=== PATIENT | female | born 1985 | race American Indian/Alaskan Native ===

== ENCOUNTER 2019-03-11 22:52 | Emergency (ER) | payer MEDICARE ==
[2019-03-11 23:48] LABS: BUN/Creatinine Ratio 26; Blood Urea Nitrogen 13 mg/dL (7-17); Calcium 8.9 mg/dL (8.4-10.2); Hemolysis Index 2
[2019-03-11] MEDS ORDERED: ONDANSETRON 4 MG/2 ML INJ IV ONE (23:54)
[2019-03-11 23:55] LABS: Alanine Aminotransferase 18 units/L (7-56); Albumin 4.4 g/dL (3.9-5)
[2019-03-11] MEDS ORDERED: SODIUM CHLORIDE 0.9% 1000 ML 1,000 ML IV ONE (23:55)
[2019-03-11 23:56] LABS: INR 0.97 (0.87-1.13); Partial Thromboplastin Time 28.7 Sec. (24.2-36.6)
[2019-03-11 23:59] LABS: Bilirubin,Direct < 0.2 mg/dL (0-0.2)
--- NOTE | 2019-03-11 23:59 | Emergency Department Report ---
ED Abdominal Pain HPI - General Chief Complaint: GI Bleed Stated Complaint: BLOOD IN STOOL,ABD PAIN Source: patient, EMS Mode of arrival: Ambulatory Limitations: No Limitations - History of Present Illness Initial Comments: 33-year-old -Citizen Of [place] female patient with history of hypertension, diabetes, asthma, seizures, bowel obstruction, appendectomy, and cholecystectomy presents with complaints of mid to lower abdominal pain and black tarry stools/dark bloody stools for the past 6 days. He denies any fever or chills or history of GI bleed/PUD/GERD. She states the pain is a 9 out of 10 in severity. She admits to nausea and vomiting with coffee ground emesis. MD Complaint: abdominal pain -: Sudden Radiation: LLQ, RLQ, suprapubic Migration to: no migration Severity scale (0 -10): 9 Quality: stabbing Consistency: constant Improves With: nothing Worsens With: nothing Associated Symptoms: nausea, vomiting, hematemesis, hematochezia, melena. denies: diarrhea, constipation, dysuria - Related Data Previous Rx's Medication Instructions Recorded Last Taken Type Pramoxine 1% [Proctofoam] 1 applicatio TP 5XD PRN 7 Days 09/24/13 Unknown Rx foam Acetaminophen/Codeine [Tylenol 1 tab PO Q6H PRN #10 tab 03/12/19 Unknown Rx /Codeine # 3 tab] Ondansetron [Zofran Odt] 4 mg PO Q8HR PRN #20 tab.rapdis 03/12/19 Unknown Rx Allergies Allergy/AdvReac Type Severity Reaction Status Date / Time acetaminophen [From Percocet] Allergy Swelling Verified 09/24/13 00:57 aspirin Allergy Unknown Verified 09/24/13 00:58 hydrocodone bitartrate Allergy Swelling Verified 09/24/13 00:57 [From Lortab] ibuprofen [From Motrin] Allergy Swelling Verified 09/24/13 00:57 oxycodone HCl [From Percocet] Allergy Swelling Verified 09/24/13 00:57 Penicillins Allergy Swelling Verified 09/24/13 00:57 sulfamethoxazole Allergy Swelling Verified 09/24/13 00:57 [From Bactrim] tramadol Allergy Unknown Verified 09/24/13 00:57 trazodone Allergy Vomiting Verified 09/24/13 00:57 trimethoprim [From Bactrim] Allergy Swelling Verified 09/24/13 00:57 ED Review of Systems ROS: Stated complaint: BLOOD IN STOOL,ABD PAIN Other details as noted in HPI ED Past Medical Hx - Past Medical History Previous Medical History?: Yes Hx Hypertension: Yes Hx Diabetes: Yes Hx Seizures: Yes Hx Asthma: Yes Additional medical history: hypothyroid,anemia. elevated liver enzymes - Surgical History Past Surgical History?: Yes Hx Cholecystectomy: Yes Hx Appendectomy: Yes Additional Surgical History: 3 c-sections, 1 breast biopsy, 1 liver biposy - Social History Smoking Status: Current Every Day Smoker Substance Use Type: None - Medications Home Medications: Home Medications Medication Instructions Recorded Confirmed Last Taken Type Pramoxine 1% [Proctofoam] 1 applicatio TP 5XD PRN 7 Days 09/24/13 Unknown Rx foam Acetaminophen/Codeine [Tylenol 1 tab PO Q6H PRN #10 tab 03/12/19 Unknown Rx /Codeine # 3 tab] Ondansetron [Zofran Odt] 4 mg PO Q8HR PRN #20 tab.rapdis 03/12/19 Unknown Rx ED Physical Exam - General Limitations: No Limitations General appearance: alert, in no apparent distress - Head Head exam: Present: atraumatic, normocephalic - Eye Eye exam: Present: normal appearance. Absent: scleral icterus - Neck Neck exam: Present: normal inspection - Respiratory Respiratory exam: Present: normal lung sounds bilaterally. Absent: respiratory distress - Cardiovascular Cardiovascular Exam: Present: regular rate, normal rhythm, normal heart sounds - GI/Abdominal GI/Abdominal exam: Present: soft, tenderness, normal bowel sounds. Absent: distended, guarding, rebound, rigid - Rectal Rectal exam: Present: heme (+) stool, bloody stool. Absent: black stool, fecal impaction, mass, tenderness - Extremities Exam Extremities exam: Absent: pedal edema - Back Exam Back exam: Absent: CVA tenderness (R), CVA tenderness (L) - Neurological Exam Neurological exam: Present: alert, oriented X3 - Psychiatric Psychiatric exam: Present: normal affect, normal mood - Skin Skin exam: Present: warm, dry, intact, normal color. Absent: rash ED Course Vital Signs 03/11/19 03/12/19 03/12/19 23:01 01:26 02:58 Temperature 98.4 F Pulse Rate 98 H Respiratory 20 16 18 Rate Blood Pressure 110/62 [Right] O2 Sat by Pulse 99 100 Oximetry ED Medical Decision Making - Lab Data Result diagrams: 03/11/19 23:18 03/11/19 23:18 Lab Results 03/11/19 03/11/19 03/11/19 Range/Units 23:18 23:18 23:34 WBC 6.9 (4.5-11.0) K/mm3 RBC 3.63 L (3.65-5.03) M/mm3 Hgb 10.5 (10.1-14.3) gm/dl Hct 32.0 (30.3-42.9) % MCV 88 (79-97) fl MCH 29 (28-32) pg MCHC 33 (30-34) % RDW 17.7 H (13.2-15.2) % Plt Count 272 (140-440) K/mm3 Lymph % (Auto) 18.4 (13.4-35.0) % [place] % (Auto) 8.8 H (0.0-7.3) % Eos % (Auto) 3.1 (0.0-4.3) % Baso % (Auto) 0.6 (0.0-1.8) % Lymph # 1.3 (1.2-5.4) K/mm3 [place] # 0.6 (0.0-0.8) K/mm3 Eos # 0.2 (0.0-0.4) K/mm3 Baso # 0.0 (0.0-0.1) K/mm3 Add Manual Diff Complete Seg Neutrophils % 69.1 (40.0-70.0) % Seg Neutrophils # 4.7 (1.8-7.7) K/mm3 PT 12.8 (12.2-14.9) Sec. INR 0.97 (0.87-1.13) APTT 28.7 (24.2-36.6) Sec. Sodium 141 (137-145) mmol/L Potassium 4.4 (3.6-5.0) mmol/L Chloride 104.8 (98-107) mmol/L Carbon Dioxide 26 (22-30) mmol/L Anion Gap 15 mmol/L BUN 13 (7-17) mg/dL Creatinine 0.5 L (0.7-1.2) mg/dL Estimated GFR > 60 ml/min BUN/Creatinine Ratio 26 % Glucose 88 (65-100) mg/dL Calcium 8.9 (8.4-10.2) mg/dL Total Bilirubin (0.1-1.2) mg/dL Direct Bilirubin (0-0.2) mg/dL Indirect Bilirubin mg/dL AST (5-40) units/L ALT (7-56) units/L Alkaline Phosphatase (35-129) units/L Total Protein (6.3-8.2) g/dL Albumin (3.9-5) g/dL Albumin/Globulin Ratio % Urine Color (Yellow) Urine Turbidity (Clear) Urine pH (5.0-7.0) Ur Specific [place] (1.003-1.030) Urine Protein (Negative) mg/dL Urine Glucose (UA) (Negative) mg/dL Urine Ketones (Negative) mg/dL Urine Blood (Negative) Urine Nitrite (Negative) Urine Bilirubin (Negative) Urine Urobilinogen (<2.0) mg/dL Ur Leukocyte Esterase (Negative) Urine WBC (Auto) (0.0-6.0) /HPF Urine RBC (Auto) (0.0-6.0) /HPF U Epithel Cells (Auto) (0-13.0) /HPF 03/11/19 03/12/19 Range/Units 23:34 01:45 WBC (4.5-11.0) K/mm3 RBC (3.65-5.03) M/mm3 Hgb (10.1-14.3) gm/dl Hct (30.3-42.9) % MCV (79-97) fl MCH (28-32) pg MCHC (30-34) % RDW (13.2-15.2) % Plt Count (140-440) K/mm3 Lymph % (Auto) (13.4-35.0) % [place] % (Auto) (0.0-7.3) % Eos % (Auto) (0.0-4.3) % Baso % (Auto) (0.0-1.8) % Lymph # (1.2-5.4) K/mm3 [place] # (0.0-0.8) K/mm3 Eos # (0.0-0.4) K/mm3 Baso # (0.0-0.1) K/mm3 Add Manual Diff Seg Neutrophils % (40.0-70.0) % Seg Neutrophils # (1.8-7.7) K/mm3 PT (12.2-14.9) Sec. INR (0.87-1.13) APTT (24.2-36.6) Sec. Sodium (137-145) mmol/L Potassium (3.6-5.0) mmol/L Chloride (98-107) mmol/L Carbon Dioxide (22-30) mmol/L Anion Gap mmol/L BUN (7-17) mg/dL Creatinine (0.7-1.2) mg/dL Estimated GFR ml/min BUN/Creatinine Ratio % Glucose (65-100) mg/dL Calcium (8.4-10.2) mg/dL Total Bilirubin < 0.20 (0.1-1.2) mg/dL Direct Bilirubin < 0.2 (0-0.2) mg/dL Indirect Bilirubin 0.0 mg/dL AST 13 (5-40) units/L ALT 18 (7-56) units/L Alkaline Phosphatase 91 (35-129) units/L Total Protein 7.4 (6.3-8.2) g/dL Albumin 4.4 (3.9-5) g/dL Albumin/Globulin Ratio 1.5 % Urine Color Straw (Yellow) Urine Turbidity Clear (Clear) Urine pH 7.0 (5.0-7.0) Ur Specific [place] 1.039 H (1.003-1.030) Urine Protein <15 mg/dl (Negative) mg/dL Urine Glucose (UA) Neg (Negative) mg/dL Urine Ketones Neg (Negative) mg/dL Urine Blood Neg (Negative) Urine Nitrite Neg (Negative) Urine Bilirubin Neg (Negative) Urine Urobilinogen < 2.0 (<2.0) mg/dL Ur Leukocyte Esterase Neg (Negative) Urine WBC (Auto) < 1.0 (0.0-6.0) /HPF Urine RBC (Auto) 1.0 (0.0-6.0) /HPF U Epithel Cells (Auto) < 1.0 (0-13.0) /HPF - Radiology Data Radiology results: report reviewed CT ABDOMEN AND PELVIS WITH CONTRAST INDICATION: Nausea, vomiting, abdominal pain, melanoma, coffee-ground emesis CONTRAST: 100 cc Omnipaque 300 IV COMPARISON: None available. All CT scans at this location are performed using CT dose reduction for ALARA by means of automated exposure control. NOTE: Resolution is decreased and artifact is introduced by the patient's size. FINDINGS: Lung bases are clear of infiltrates. No pneumoperitoneum is seen. Gallbladder has been removed. Liver shows mild fatty infiltration and is mildly prominent in volume. Spleen appears w ithin normal limits. Pancreas shows no abnormalities. No lymphadenopathy is seen. No free fluid is noted. No inflammatory changes are seen. Stomach and duodenum show no obvious abnormalities. No evidence of bowel obstruction is seen. Colon shows mild increase in stool burden without dilatation. Appendix appears to been removed. 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 In the upper pelvis to the right of midline several matted small bowel loops are seen which may show mild wall thickening. Terminal ileum appears within normal limits. Diffuse mild midline abdominal wall laxity is seen and a small fatty umbilical hernia is noted. Several small midline abdominal wall hernias are noted. No acute change is seen at these hernia sites and no bowel is noted. Small probable cysts are seen in the kidneys. In the medial aspect of the left mid kidney a 2 cm cystic rounded structure is seen with a moderate focal calcification noted dependently. Though this could be a complex cortical cyst, this may be a calyceal diverticulum or even a dilated calyx. I do not see other collecting system dilatation however. No ureteral abnormalities are seen. Urinary bladder shows no abnormalities. IMPRESSION: 1. Question of mild wall thickening in small bowel loops in the upper pelvis. Possibly this could relate to a mild enteritis. 2. Evidence of constipation 3. Cystic structure in the left kidney with a moderate dependent calcification as discussed above. I doubt this is an acute finding and favor this to be a calyceal diverticulum with a calculus. Follow-up could be obtained though I doubt this is significant. - Medical Decision Making 33-year-old female patient here with abdominal pain and black tarry stools/dark red blood in stools for the past 6 days. Vitals are WNL. Hemoglobin is 10.5, previously 10.9 and 2014. WBCs are normal. Chemistry is normal. Fecal occult, positive, however bright red blood noted on rectal exam and no black tarry stools seen. CT shows possible mild enteritis. Discussed patient's findings with Dr. Dickey-states given pt's vitals, Hgb, CT and lab findings, patient is stable for d/c home and f/u with her GI specialist. Discussed strict return precautions in detail with pt who states understanding Critical care attestation.: If time is entered above; I have spent that time in minutes in the direct care of this critically ill patient, excluding procedure time. ED Disposition Clinical Impression: Hematochezia Abdominal pain Qualifiers: Abdominal location: generalized Qualified Code(s): R10.84 - Generalized abdominal pain Disposition: TO HOME OR SELFCARE Is pt being admited?: No Condition: Stable Instructions: Rectal Bleeding (ED) Additional Instructions: Please follow-up with your aeronautical test engineer in the morning for further evaluation and treatment Prescriptions: Acetaminophen/Codeine [Tylenol /Codeine # 3 tab] 1 tab PO Q6H PRN #10 tab PRN Reason: Pain , Severe (7-10) Ondansetron [Zofran Odt] 4 mg PO Q8HR PRN #20 tab.rapdis PRN Reason: Nausea Referrals: MARISA BARAJAS MD [Primary Care Provider] - 3-5 Days Forms: Accompanied Note
[2019-03-12 00:01] LABS: Hemoglobin 10.5 gm/dl (10.1-14.3); Red Blood Count 3.63 M/mm3 (3.65-5.03)
[2019-03-12 00:02] LABS: Basophils % (Auto) 0.6 % (0.0-1.8); Eosinophils # (Auto) 0.2 K/mm3 (0.0-0.4); Eosinophils % (Auto) 3.1 % (0.0-4.3); Lymphocytes # (Auto) 1.3 K/mm3 (1.2-5.4); Lymphocytes % (Auto) 18.4 % (13.4-35.0); Mean Corpuscular HGB Conc 33 % (30-34); Mean Corpuscular Volume 88 fl (79-97); Mean Platelet Volume 7.7 fl (6-12); Monocytes # (Auto) 0.6 K/mm3 (0.0-0.8); Monocytes % (Auto) 8.8 % (0.0-7.3); Platelet Count 272 K/mm3 (140-440); Red Cell Distribution Width 17.7 % (13.2-15.2)
[2019-03-12] MEDS ORDERED: MORPHINE 4 MG/1 ML INJ IV ONE (01:19)
--- NOTE | 2019-03-12 01:53 | Cat Scan Report ---
CT ABDOMEN AND PELVIS WITH CONTRAST INDICATION: Nausea, vomiting, abdominal pain, melanoma, coffee-ground emesis CONTRAST: 100 cc Omnipaque 300 IV COMPARISON: None available. All CT scans at this location are performed using CT dose reduction for ALARA by means of automated e xposure control. NOTE: Resolution is decreased and artifact is introduced by the patient's size. FINDINGS: Lung bases are clear of infiltrates. No pneumoperitoneum is seen. Gallbladder has been salas sriram. Liver shows mild fatty infiltration and is mildly prominent in volume. Spleen appears within nor mal limits. Pancreas shows no abnormalities. No lymphadenopathy is seen. No free fluid is noted. No i nflammatory changes are seen. Stomach and duodenum show no obvious abnormalities. No evidence of bowel obstruction is seen. Colon s hows mild increase in stool burden without dilatation. Appendix appears to been removed. Congenital m alrotation of bowel is seen with the colon almost entirely in the left abdomen and cecum well to the left of midline. In the upper pelvis to the right of midline several matted small bowel loops are see n which may show mild wall thickening. Terminal ileum appears within normal limits. Diffuse mild midline abdominal wall laxity is seen and a small fatty umbilical hernia is noted. Sever al small midline abdominal wall hernias are noted. No acute change is seen at these hernia sites and no bowel is noted. Small probable cysts are seen in the kidneys. In the medial aspect of the left mid kidney a 2 cm cyst ic rounded structure is seen with a moderate focal calcification noted dependently. Though this could be a complex cortical cyst, this may be a calyceal diverticulum or even a dilated calyx. I do not se e other collecting system dilatation however. No ureteral abnormalities are seen. Urinary bladder steven ws no abnormalities. IMPRESSION: 1. Question of mild wall thickening in small bowel loops in the upper pelvis. Possibly this could rel ate to a mild enteritis. 2. Evidence of constipation 3. Cystic structure in the left kidney with a moderate dependent calcification as discussed above. I doubt this is an acute finding and favor this to be a calyceal diverticulum with a calculus. Follow-u p could be obtained though I doubt this is significant. Signer Name: Alonso Brito MD Signed: 03/12/2019 1:48 AM Workstation Name: [id number]
[2019-03-12 01:59] LABS: Bilirubin,Urine NEG (Negative); Blood,Urine NEG (Negative); Color,Urine Straw (Yellow); Protein,Urine <15 mg/dL mg/dL (Negative); Urobilinogen,Urine < 2.0 mg/dL (<2.0); WBC,Urine < 1.0 /HPF (0.0-6.0)
[2019-03-12] MEDS ORDERED: oxyCODONE /ACETAMINOPHEN 5-325MG TAB PO ONE (02:49)
[2019-03-12 04:15] VITALS: BP 122/68
== END 2019-03-12 04:15 | disposition home or self-care (01) ==
LOC: ED 22:52
DX: K92.1 Melena (principal); R10.32 Left lower quadrant pain; R10.31 Right lower quadrant pain; R11.2 Nausea with vomiting, unspecified; I10 Essential (primary) hypertension; E11.9 Type 2 diabetes mellitus without complications; J45.909 Unspecified asthma, uncomplicated; E03.9 Hypothyroidism, unspecified; D64.9 Anemia, unspecified; F17.200 Nicotine dependence, unspecified, uncomplicated; Z90.49 Acquired absence of other specified parts of digestive tract; Z79.899 Other long term (current) drug therapy; Z88.6 Allergy status to analgesic agent; Z88.8 Allergy status to other drugs, medicaments and biological substances
CPT/HCPCS: 36415; 74177; 80048; 80076; 81001; 85025; 85610; 85730; 96361; 96374; 96375; 99284; J2270; J2405; J7030; Q9967

== ENCOUNTER 2019-05-04 16:52 | Emergency (ER) | payer MEDICARE ==
--- NOTE | 2019-05-04 18:03 | Event Note ---
ED Screening Note Date of service: 05/04/19 Time: 17:59 ED Screening Note: This is a 33 y.o. F. that presents to the ER with right shoulder and wrist pain and swelling. Patient reports falling from 2 steps at home. States pain with attempt to move right shoulder and wrist. Denies loc or hitting her head. This initial assessment/diagnostic orders/clinical plan/treatment(s) is/are subject to change based on patients health status, clinical progression and re- assessment by fellow clinical providers in the ED. Further treatment and workup at subsequent clinical providers discretion. Patient/guardian urged not to elope from the ED as their condition may be serious if not clinically assessed and managed. Initial orders include: XR of right wrist and right shoulder
--- NOTE | 2019-05-04 18:36 | XRay Report ---
Right shoulder 3 views INDICATION: Right shoulder pain following injury IMPRESSION: No fracture or subluxation of the right shoulder is identified. Signer Name: Martin Medeiros MD Signed: 05/04/2019 6:32 PM Workstation Name: [id number]
--- NOTE | 2019-05-04 18:37 | XRay Report ---
Right wrist 3 views INDICATION: Right wrist pain following injury IMPRESSION: No fracture or subluxation of the right wrist is identified. 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 Signer Name: Martin Medeiros MD Signed: 05/04/2019 6:33 PM Workstation Name: [id number]
--- NOTE | 2019-05-04 21:10 | Emergency Department Report ---
ED Upper Extremity Inj HPI - General Chief Complaint: Fall Stated Complaint: RT ARM PAIN Time Seen by Provider: 05/04/19 17:59 Source: patient Mode of arrival: Ambulatory Limitations: No Limitations - History of Present Illness Initial Comments: Patient is a 33-year-old female presents emergency room with onset of right arm pain that occurred around 4:30 PM today. She states that she tripped and fell down approximately 5 steps outside. She states that she has pain in her right wrist and right shoulder. She denies any prior injury. She denies any numbness or weakness, she denies any loss of consciousness. She states she has a past medical history of diabetes, seizure, hypothyroid, asthma, hypertension. - Related Data Previous Rx's Medication Instructions Recorded Last Taken Type Pramoxine 1% [Proctofoam] 1 applicatio TP 5XD PRN 7 Days 09/24/13 Unknown Rx foam Acetaminophen/Codeine [Tylenol 1 tab PO Q6H PRN #10 tab 03/12/19 Unknown Rx /Codeine # 3 tab] Ondansetron [Zofran Odt] 4 mg PO Q8HR PRN #20 tab.rapdis 03/12/19 Unknown Rx Diclofenac Sodium 25 mg PO BID PRN #16 tablet. 05/04/19 Unknown Rx Menthol/Camphor [[place] Mascot 1 applicatio TP BID #1 oint...g. 05/04/19 Unknown Rx Ointment] Allergies Allergy/AdvReac Type Severity Reaction Status Date / Time acetaminophen [From Percocet] Allergy Swelling Verified 09/24/13 00:57 oxycodone HCl [From Percocet] Allergy Swelling Verified 09/24/13 00:57 ED Review of Systems ROS: Stated complaint: RT ARM PAIN Other details as noted in HPI Comment: All other systems reviewed and negative ED Past Medical Hx - Past Medical History Hx Hypertension: Yes Hx Diabetes: Yes Hx Seizures: Yes Hx Asthma: Yes Additional medical history: hypothyroid,anemia. elevated liver enzymes - Surgical History Hx Cholecystectomy: Yes Hx Appendectomy: Yes Additional Surgical History: 3 c-sections, 1 breast biopsy, 1 liver biposy - Social History Smoking Status: Former Smoker Substance Use Type: None - Medications Home Medications: Home Medications Medication Instructions Recorded Confirmed Last Taken Type Pramoxine 1% [Proctofoam] 1 applicatio TP 5XD PRN 7 Days 09/24/13 Unknown Rx foam Acetaminophen/Codeine [Tylenol 1 tab PO Q6H PRN #10 tab 03/12/19 Unknown Rx /Codeine # 3 tab] Ondansetron [Zofran Odt] 4 mg PO Q8HR PRN #20 tab.rapdis 03/12/19 Unknown Rx Diclofenac Sodium 25 mg PO BID PRN #16 tablet. 05/04/19 Unknown Rx Menthol/Camphor [[place] Mascot 1 applicatio TP BID #1 oint...g. 05/04/19 Unknown Rx Ointment] ED Physical Exam - General Limitations: No Limitations General appearance: alert, in no apparent distress - Head Head exam: Present: atraumatic, normocephalic - Eye Eye exam: Present: normal appearance - ENT ENT exam: Present: mucous membranes moist - Respiratory Respiratory exam: Present: normal lung sounds bilaterally. Absent: respiratory distress, wheezes, rales, rhonchi, stridor, chest wall tenderness, accessory muscle use, decreased breath sounds, prolonged expiratory - Cardiovascular Cardiovascular Exam: Present: regular rate, normal rhythm, normal heart sounds. Absent: systolic murmur, diastolic murmur, rubs, gallop - Extremities Exam Extremities exam: Present: other (no bony TTP of the right wrist, FROM of the entire right upper extremity, mild generalized discomfort with ROM of the right wrist and full flexion of the shoulder, no joint laxtiy, no edema, no deformity, no ecchymosis, no abrasions, neurovascularly intact) - Neurological Exam Neurological exam: Present: alert, oriented X3 - Psychiatric Psychiatric exam: Present: normal affect, normal mood - Skin Skin exam: Present: warm, dry, intact ED Course Vital Signs 05/04/19 05/04/19 17:59 21:23 Temperature 98.5 F 97.8 F Pulse Rate 82 75 Respiratory 18 16 Rate Blood Pressure 121/68 119/70 O2 Sat by Pulse 97 100 Oximetry ED Medical Decision Making - Radiology Data Radiology results: report reviewed Right wrist 3 views INDICATION: Right wrist pain following injury IMPRESSION: No fracture or subluxation of the right wrist is identified. 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 Signer Name: Martin Medeiros MD Signed: 05/04/2019 6:33 PM Workstation Name: [id number] Transcribed By: RAUDEL Dictated By: Martin Medeiros MD Electronically Authenticated By: Martin Medeiros MD Signed Date/Time: 05/04/191832 DD/ 31 TD/TT: Right shoulder 3 views INDICATION: Right shoulder pain following injury IMPRESSION: No fracture or subluxation of the right shoulder is identified. Signer Name: Martin Medeiros MD Signed: 05/04/2019 6:32 PM Workstation Name: [id number] Transcribed By: RAUDEL Dictated By: Martin Medeiros MD Electronically Authenticated By: Martin Medeiros MD Signed Date/Time: 05/04/191831 DD/ 30 TD/TT: - Medical Decision Making Patient is a 33-year-old female presents emergency room with onset of right arm pain that occurred around 4:30 PM today. She states that she tripped and fell down approximately 5 steps outside. She states that she has pain in her right wrist and right shoulder. She denies any prior injury. She denies any numbness or weakness, she denies any loss of consciousness. She states she has a past medical history of diabetes, seizure, hypothyroid, asthma, hypertension. vitals are normal. on exam: no bony TTP of the right wrist, FROM of the entire right upper extremity, mild generalized discomfort with ROM of the right wrist and full flexion of the shoulder, no joint laxtiy, no edema, no deformity, no ecchymosis, no abrasions, neurovascularly intact. X-ray of the right wrist and right shoulder with no acute process. pt given prescription for diclofenac and [place] balm ointment. advised pt to please use medication as prescribed. May use ice pack, heating pad, rest, epsom salt bath. Follow-up with orthopedic doctor if symptoms are not improving. Return to the emergency room for any new or worsening symptoms. - Differential Diagnosis strain, sprain, fx, dislocation, tendonitis, arthritis Critical care attestation.: If time is entered above; I have spent that time in minutes in the direct care of this critically ill patient, excluding procedure time. ED Disposition Clinical Impression: Right wrist pain Right shoulder pain Qualifiers: Chronicity: acute Qualified Code(s): M25.511 - Pain in right shoulder Disposition: DC-01 TO HOME OR SELFCARE Is pt being admited?: No Does the pt Need Aspirin: No Condition: Stable Instructions: Arthralgia (ED) Additional Instructions: Please use medication as prescribed. May use ice pack, heating pad, rest, epsom salt bath. Follow-up with orthopedic doctor if symptoms are not improving. Return to the emergency room for any new or worsening symptoms. Prescriptions: Diclofenac Sodium 25 mg PO BID PRN #16 tablet. PRCoral Reason: pain Menthol/Camphor [[place] Mascot Ointment] 1 applicatio TP BID #1 oint...g. Referrals: CANDIDO COHEN MD [Staff Physician] - 3-5 Days [facility] [Provider Group] - 3-5 Days Forms: Work/School Release Form(ED) Time of Disposition: 21:07 Print Language: SAO TOMEAN
[2019-05-04 21:46] VITALS: BP 119/70
== END 2019-05-04 21:46 | disposition home or self-care (01) ==
LOC: ED 16:52
DX: M25.511 Pain in right shoulder (principal); M25.531 Pain in right wrist; I10 Essential (primary) hypertension; J45.909 Unspecified asthma, uncomplicated; E03.9 Hypothyroidism, unspecified
CPT/HCPCS: 99283

== ENCOUNTER 2019-05-30 00:31 | Emergency (ER) | payer MEDICARE ==
[2019-05-30 02:01] LABS: Basophils % (Auto) 0.8 % (0.0-1.8); Eosinophils # (Auto) 0.3 K/mm3 (0.0-0.4); Eosinophils % (Auto) 5.1 % (0.0-4.3); Hematocrit 31.5 % (30.3-42.9); Hemoglobin 10.2 gm/dl (10.1-14.3); Lymphocytes # (Auto) 1.2 K/mm3 (1.2-5.4); Lymphocytes % (Auto) 20.1 % (13.4-35.0); Mean Corpuscular HGB Conc 32 % (30-34); Mean Corpuscular Volume 87 fl (79-97); Monocytes # (Auto) 0.5 K/mm3 (0.0-0.8); Monocytes % (Auto) 8.1 % (0.0-7.3); Platelet Count 254 K/mm3 (140-440); Red Blood Count 3.64 M/mm3 (3.65-5.03); Red Cell Distribution Width 17.4 % (13.2-15.2)
[2019-05-30 02:24] LABS: Alanine Aminotransferase 10 units/L (7-56); Albumin 4.3 g/dL (3.9-5); BUN/Creatinine Ratio 32; Blood Urea Nitrogen 19 mg/dL (7-17); Calcium 9.2 mg/dL (8.4-10.2); Hemolysis Index 4
[2019-05-30 03:08] LABS: Bilirubin,Urine NEG (Negative); Blood,Urine NEG (Negative); Color,Urine Yellow (Yellow); Mucus,Urine 2+ /HPF; Protein,Urine <15 mg/dL mg/dL (Negative); Urobilinogen,Urine < 2.0 mg/dL (<2.0)
[2019-05-30 03:36] LABS: HCG Qualitative,Urine Negative (Negative)
--- NOTE | 2019-05-30 08:14 | Emergency Department Report ---
ED Abdominal Pain HPI - General Chief Complaint: Abdominal Pain Stated Complaint: ABD PAIN Time Seen by Provider: 05/30/19 07:23 Source: patient, EMS Mode of arrival: Ambulatory Limitations: No Limitations - History of Present Illness Initial Comments: 33 yo AA obese female comes to ER w low back pain rad down leg. The pain is not flank as indicated by RN. It is low back pain on right side that radiates down the leg. Pos straight leg raise. pmh dm htn obese hypothyroidism. No fever/chills/dysuria/vag dc No fall or trauma. - Related Data Previous Rx's Medication Instructions Recorded Last Taken Type Pramoxine 1% [Proctofoam] 1 applicatio TP 5XD PRN 7 Days 09/24/13 Unknown Rx foam Cyclobenzaprine [Flexeril] 10 mg PO TID PRN #10 tablet 05/30/19 Unknown Rx Diclofenac Sodium 25 mg PO BID PRN #16 tablet. 05/30/19 Unknown Rx Allergies Allergy/AdvReac Type Severity Reaction Status Date / Time amoxicillin Allergy Unknown Verified 05/30/19 00:44 aspirin Allergy Unknown Verified 05/30/19 00:44 ibuprofen [From Motrin] Allergy Unknown Verified 05/30/19 00:44 sulfamethoxazole Allergy Unknown Verified 05/30/19 00:44 [From Bactrim] tramadol Allergy Unknown Verified 05/30/19 00:44 trimethoprim [From Bactrim] Allergy Unknown Verified 05/30/19 00:44 ED Review of Systems ROS: Stated complaint: ABD PAIN Other details as noted in HPI Comment: All other systems reviewed and negative ED Past Medical Hx - Past Medical History Previous Medical History?: Yes Hx Hypertension: Yes Hx Diabetes: Yes Hx Seizures: Yes Hx Asthma: Yes Additional medical history: hypothyroid,anemia. elevated liver enzymes - Surgical History Past Surgical History?: Yes Hx Cholecystectomy: Yes Hx Appendectomy: Yes Additional Surgical History: 3 c-sections, 1 breast biopsy, 1 liver biposy - Family History Family history: no significant - Social History Smoking Status: Never Smoker Substance Use Type: None - Medications Home Medications: Home Medications Medication Instructions Recorded Confirmed Last Taken Type Pramoxine 1% [Proctofoam] 1 applicatio TP 5XD PRN 7 Days 09/24/13 Unknown Rx foam Cyclobenzaprine [Flexeril] 10 mg PO TID PRN #10 tablet 05/30/19 Unknown Rx Diclofenac Sodium 25 mg PO BID PRN #16 tablet. 05/30/19 Unknown Rx ED Physical Exam - General Limitations: No Limitations General appearance: alert, in no apparent distress - Head Head exam: Present: atraumatic, normocephalic - Eye Eye exam: Present: normal appearance - ENT ENT exam: Present: mucous membranes moist - Neck Neck exam: Present: normal inspection - Respiratory Respiratory exam: Present: normal lung sounds bilaterally. Absent: respiratory distress - Cardiovascular Cardiovascular Exam: Present: regular rate, normal rhythm. Absent: systolic murmur, diastolic murmur, rubs, gallop - GI/Abdominal GI/Abdominal exam: Present: soft, normal bowel sounds - Extremities Exam Extremities exam: Present: normal inspection - Back Exam Back exam: Present: normal inspection - Neurological Exam Neurological exam: Present: alert, oriented X3 - Psychiatric Psychiatric exam: Present: normal affect, normal mood - Skin Skin exam: Present: warm, dry, intact, normal color. Absent: rash ED Course Vital Signs 05/30/19 05/30/19 01:25 08:54 Temperature 98.6 F 97.6 F Pulse Rate 76 83 Respiratory 18 16 Rate Blood Pressure 142/58 Blood Pressure 124/96 [Left] O2 Sat by Pulse 98 98 Oximetry ED Medical Decision Making - Lab Data Result diagrams: 05/30/19 01:46 05/30/19 01:46 - Medical Decision Making Lab Results 05/30/19 05/30/19 05/30/19 Range/Units 01:46 01:46 02:37 WBC 5.9 (4.5-11.0) K/mm3 RBC 3.64 L (3.65-5.03) M/mm3 Hgb 10.2 (10.1-14.3) gm/dl Hct 31.5 (30.3-42.9) % MCV 87 (79-97) fl MCH 28 (28-32) pg MCHC 32 (30-34) % RDW 17.4 H (13.2-15.2) % Plt Count 254 (140-440) K/mm3 Lymph % (Auto) 20.1 (13.4-35.0) % [place] % (Auto) 8.1 H (0.0-7.3) % Eos % (Auto) 5.1 H (0.0-4.3) % Baso % (Auto) 0.8 (0.0-1.8) % Lymph # 1.2 (1.2-5.4) K/mm3 [place] # 0.5 (0.0-0.8) K/mm3 Eos # 0.3 (0.0-0.4) K/mm3 Baso # 0.0 (0.0-0.1) K/mm3 Seg Neutrophils % 65.9 (40.0-70.0) % Seg Neutrophils # 3.9 (1.8-7.7) K/mm3 Sodium 143 (137-145) mmol/L Potassium 3.8 (3.6-5.0) mmol/L Chloride 106.8 (98-107) mmol/L Carbon Dioxide 23 (22-30) mmol/L Anion Gap 17 mmol/L BUN 19 H (7-17) mg/dL Creatinine 0.6 L (0.7-1.2) mg/dL Estimated GFR > 60 ml/min BUN/Creatinine Ratio 32 % Glucose 96 (65-100) mg/dL Calcium 9.2 (8.4-10.2) mg/dL Total Bilirubin < 0.20 (0.1-1.2) mg/dL AST 12 (5-40) units/L ALT 10 (7-56) units/L Alkaline Phosphatase 73 (35-129) units/L Troponin T < 0.010 (0.00-0.029) ng/mL Total Protein 7.3 (6.3-8.2) g/dL Albumin 4.3 (3.9-5) g/dL Albumin/Globulin Ratio 1.4 % Urine Color Yellow (Yellow) Urine Turbidity Clear (Clear) Urine pH 6.0 (5.0-7.0) Ur Specific [place] 1.026 (1.003-1.030) Urine Protein <15 mg/dl (Negative) mg/dL Urine Glucose (UA) Neg (Negative) mg/dL Urine Ketones Neg (Negative) mg/dL Urine Blood Neg (Negative) Urine Nitrite Neg (Negative) Urine Bilirubin Neg (Negative) Urine Urobilinogen < 2.0 (<2.0) mg/dL Ur Leukocyte Esterase Neg (Negative) Urine WBC (Auto) 4.0 (0.0-6.0) /HPF Urine RBC (Auto) 2.0 (0.0-6.0) /HPF U Epithel Cells (Auto) 1.0 (0-13.0) /HPF Urine Mucus 2+ /HPF Urine HCG, Qual Negative (Negative) Vital Signs 05/30/19 01:25 Temperature 98.6 F Pulse Rate 76 Respiratory 18 Rate Blood Pressure 142/58 O2 Sat by Pulse 98 Oximetry POS L STRAIGHT LEG RAISE TAKING HOME MEDS NEEDS NEW PCP MEDICATED/AMBULATED IN ER DC HOME WITH PCP FOLLOW UP - Differential Diagnosis ro uti/lbp Critical care attestation.: If time is entered above; I have spent that time in minutes in the direct care of this critically ill patient, excluding procedure time. ED Disposition Clinical Impression: Sciatica Disposition: DC-01 TO HOME OR SELFCARE Is pt being admited?: No Does the pt Need Aspirin: No Condition: Stable Additional Instructions: WORK ON WEIGHT LOSS KEEP BP AND SUGAR CONTROLLED CONTINUE HOME MEDS SEE PCP REFERRAL BELOW HYDRATE WELL WITH WATER STRETCH AND WALK DAILY Prescriptions: Diclofenac Sodium 25 mg PO BID PRN #16 tablet. PRN Reason: pain Cyclobenzaprine [Flexeril] 10 mg PO TID PRN #10 tablet PRN Reason: Muscle Spasm Referrals: LAM STAFFORD MD [Staff Physician] - 3-5 Days Time of Disposition: 08:17
[2019-05-30] MEDS ORDERED: predniSONE 20 MG TAB PO ONE (08:15)
[2019-05-30 08:55] VITALS: BP 124/96
== END 2019-05-30 08:55 | disposition home or self-care (01) ==
LOC: ED 00:31
DX: M54.30 Sciatica, unspecified side (principal); I10 Essential (primary) hypertension; E11.9 Type 2 diabetes mellitus without complications; J45.909 Unspecified asthma, uncomplicated; E03.9 Hypothyroidism, unspecified; Z90.49 Acquired absence of other specified parts of digestive tract; Z98.890 Other specified postprocedural states; Z88.1 Allergy status to other antibiotic agents; Z88.2 Allergy status to sulfonamides; Z79.899 Other long term (current) drug therapy
CPT/HCPCS: 36415; 80053; 81001; 81025; 84484; 85025; 93005; 93010; 99284; J7512

== ENCOUNTER 2019-06-01 14:07 | Emergency (ER) | payer MEDICARE ==
--- NOTE | 2019-06-01 16:42 | XRay Report ---
XR foot 3+V LT INDICATION / CLINICAL INFORMATION: heel fracture. COMPARISON: None available. FINDINGS: BONES/JOINT(S): No acute fracture or subluxation. No significant degenerative changes. SOFT TISSUES: No significant abnormality. ADDITIONAL FINDINGS: None. Signer Name: Alex Prabhakar MD Signed: 06/01/2019 4:37 PM Workstation Name: [id number]
[2019-06-01] MEDS ORDERED: IBUPROFEN 600 MG TAB PO ONE (18:52)
--- NOTE | 2019-06-01 18:59 | Emergency Department Report ---
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 Patient was diagnosed with Ramon for fracture. Patient states that her splint came apart what she got home. Patient called the orthopedics doctor and was unable to get an appointment today. She was told to return to the nearest emergency department. Patient states she has pain at the arch of the foot. Patient is coming in with no splint intact. Severity scale (0 -10): 9 - Related Data Previous Rx's Medication Instructions Recorded Last Taken Type Pramoxine 1% [Proctofoam] 1 applicatio TP 5XD PRN 7 Days 09/24/13 Unknown Rx foam Cyclobenzaprine [Flexeril] 10 mg PO TID PRN #10 tablet 05/30/19 Unknown Rx Diclofenac Sodium 25 mg PO BID PRN #16 tablet. 05/30/19 Unknown Rx Allergies Allergy/AdvReac Type Severity Reaction Status Date / Time amoxicillin Allergy Unknown Verified 06/01/19 15:04 aspirin Allergy Unknown Verified 06/01/19 15:04 sulfamethoxazole Allergy Unknown Verified 06/01/19 15:04 [From Bactrim] tramadol Allergy Unknown Verified 06/01/19 15:04 trimethoprim [From Bactrim] Allergy Unknown Verified 06/01/19 15:04 ED Review of Systems ROS: Stated complaint: LFT HEEL CAST CAME OFF Other details as noted in HPI Comment: All other systems reviewed and negative ED Past Medical Hx - Past Medical History Previous Medical History?: Yes Hx Hypertension: Yes Hx Diabetes: Yes Hx Seizures: Yes Hx Asthma: Yes Additional medical history: hypothyroid,anemia. elevated liver enzymes - Surgical History Past Surgical History?: Yes Hx Cholecystectomy: Yes Hx Appendectomy: Yes Additional Surgical History: 3 c-sections, 1 breast biopsy, 1 liver biposy - Social History Smoking Status: Never Smoker Substance Use Type: None - Medications Home Medications: Home Medications Medication Instructions Recorded Confirmed Last Taken Type Pramoxine 1% [Proctofoam] 1 applicatio TP 5XD PRN 7 Days 09/24/13 Unknown Rx foam Cyclobenzaprine [Flexeril] 10 mg PO TID PRN #10 tablet 05/30/19 Unknown Rx Diclofenac Sodium 25 mg PO BID PRN #16 tablet. 05/30/19 Unknown Rx ED Physical Exam - General Limitations: No Limitations General appearance: alert, in no apparent distress - Head Head exam: Present: atraumatic, normocephalic - Extremities Exam Extremities exam: Present: tenderness - Expanded Lower Extremity Exam Left Foot/Toe exam: Present: tenderness (on the plantar surface of the left foot), swelling ED Course Vital Signs 06/01/19 14:40 Temperature 98.3 F Pulse Rate 89 Respiratory 15 Rate Blood Pressure 107/76 [Left] O2 Sat by Pulse 100 Oximetry ED Medical Decision Making - Medical Decision Making X-ray of the foot here showed no acute fracture however the patient has documentation from outside hospital that she has a cuneiform fracture of the left foot. Patient placed in a posterior short-leg splint will be discharged home. Critical care attestation.: If time is entered above; I have spent that time in minutes in the direct care of this critically ill patient, excluding procedure time. ED Disposition Clinical Impression: Foot, fracture, cuneiform Disposition: DC-01 TO HOME OR SELFCARE Is pt being admited?: No Does the pt Need Aspirin: No Condition: Stable Instructions: Splint Care (ED) Referrals: CANDIDO COHEN MD [Staff Physician] - 3-5 Days Time of Disposition: 18:58
[2019-06-01 19:46] VITALS: BP 133/82
== END 2019-06-01 19:32 | disposition home or self-care (01) ==
LOC: ED 14:07
DX: S92.902A Unspecified fracture of left foot, initial encounter for closed fracture (principal); Y99.8 Other external cause status; I10 Essential (primary) hypertension; E11.9 Type 2 diabetes mellitus without complications; J45.909 Unspecified asthma, uncomplicated; Z90.49 Acquired absence of other specified parts of digestive tract; X58.XXXA Exposure to other specified factors, initial encounter; Y93.89 Activity, other specified; Y92.89 Other specified places as the place of occurrence of the external cause
CPT/HCPCS: 99283

== ENCOUNTER 2019-08-27 07:16 | Emergency (ER) | payer MEDICARE ==
[2019-08-27 07:37] VITALS: BP 139/75
[2019-08-27 08:41] LABS: Basophils % (Auto) 0.3 % (0.0-1.8); Eosinophils # (Auto) 0.3 K/mm3 (0.0-0.4); Eosinophils % (Auto) 5.7 % (0.0-4.3); Hematocrit 32.7 % (30.3-42.9); Hemoglobin 10.4 gm/dl (10.1-14.3); Lymphocytes # (Auto) 1.2 K/mm3 (1.2-5.4); Lymphocytes % (Auto) 20.7 % (13.4-35.0); Mean Corpuscular HGB Conc 32 % (30-34); Mean Corpuscular Volume 87 fl (79-97); Monocytes # (Auto) 0.5 K/mm3 (0.0-0.8); Monocytes % (Auto) 9.4 % (0.0-7.3); Platelet Count 290 K/mm3 (140-440); Red Blood Count 3.77 M/mm3 (3.65-5.03); Red Cell Distribution Width 18.6 % (13.2-15.2)
[2019-08-27] MEDS ORDERED: ACETAMINOPHEN 500 MG TAB PO ONE (09:00)
[2019-08-27 09:16] LABS: Bilirubin,Urine NEG (Negative); Blood,Urine NEG (Negative); Color,Urine Straw (Yellow); Mucus,Urine FEW /HPF; Protein,Urine <15 mg/dL mg/dL (Negative); Urobilinogen,Urine < 2.0 mg/dL (<2.0)
--- NOTE | 2019-08-27 09:42 | Ultrasound Report ---
ULTRASOUND PELVIS DUPLEX DOPPLER COMPLETE HISTORY: Pelvic pain TECHNIQUE: Transabdominal ultrasound with color and spectral Doppler imaging. FINDINGS: The uterus is anteverted. The uterus measures 7.7 x 4.3 x 4.9 cm. No uterine mass is identified. The endometrium is homogeneous and measures 6.5 mm on transabdominal imaging. The right ovary measures 2.2 x 1.5 x 1.9 cm. The left ovary measures 2.4 x 1.7 x 2.2 cm. No adnexal l esion is identified. No free pelvic fluid. Spectral Doppler waveforms demonstrate arterial flow to both ovaries. IMPRESSION: Unremarkable exam. Signer Name: Apollo Sheffield Jr, MD Signed: 08/27/2019 9:37 AM Workstation Name: [id number]
--- NOTE | 2019-08-27 11:01 | Emergency Department Report ---
ED Female HPI - General Chief complaint: Abdominal Pain Stated complaint: LOWER/PELVIC/BACK PAIN/BLEEDING Time Seen by Provider: 08/27/19 08:37 Source: patient Mode of arrival: Ambulatory Limitations: No Limitations - History of Present Illness Initial comments: This is a 34-year-old female nontoxic, well nourished in appearance, no acute signs of distress presents to the ED with c/o of vaginal bleeding and vaginal bleeding x1 day. Patient denies any nausea or vomiting. Patient describes pelvic pain as cramping and aching with level of 3/10 diffuse. Patient denies any upper abdominal pain. Patient denies chest pain, short of breath, fever, h emoptysis, blood in stool, chills, headache, stiff neck, numbness or tingling. Patient denies any diarrhea or constipation. Denies any blood in stool. Patient denies any recent travels. Patient stated allergies to bactrim, amoxicillin, tramadol, and aspirin. HX of appendectomy and cholecystectomy. MD Complaint: pelvic pain -: days(s) (1) Radiation: non-radiating Severity: mild Severity scale (0 -10): 3 Quality: cramping, aching Consistency: intermittent Improves with: none Worsens with: none Are you Now?: No Associated Symptoms: vaginal bleeding. denies: vaginal discharge, abdominal pain, nausea/vomiting, fever/chills, headaches, loss of appetite, dysuria, hematuria, rash, seizure, shortness of breath, syncope, weakness - Related Data Home Medications Medication Instructions Recorded Confirmed Last Taken metFORMIN 500 mg PO BID 06/04/19 06/04/19 Unknown Previous Rx's Medication Instructions Recorded Last Taken Type AtorvaSTATin [Lipitor] 40 mg PO QHS tablet 06/06/19 Unknown Rx Cyclobenzaprine [Flexeril 10 MG 10 mg PO TID PRN tablet 06/06/19 Unknown Rx TAB] Insulin Glargine [Lantus VIAL] 5 units SUB-Q QHS #1 pen 06/06/19 Unknown Rx hydroCHLOROthiazide [HCTZ] 25 mg PO QDAY tablet 06/06/19 Unknown Rx levETIRAcetam [Keppra TAB] 1,000 mg PO BID #60 tablet 06/06/19 Unknown Rx metFORMIN [Glucophage] 500 mg PO BIDDIAB tablet 06/06/19 Unknown Rx Allergies Allergy/AdvReac Type Severity Reaction Status Date / Time amoxicillin Allergy Unknown Verified 06/01/19 15:04 aspirin Allergy Hives Verified 06/04/19 23:20 sulfamethoxazole Allergy Unknown Verified 06/01/19 15:04 [From Bactrim] tramadol Allergy Unknown Verified 06/01/19 15:04 trimethoprim [From Bactrim] Allergy Unknown Verified 06/01/19 15:04 ED Review of Systems ROS: Stated complaint: LOWER/PELVIC/BACK PAIN/BLEEDING Other details as noted in HPI Constitutional: denies: chills, fever Eyes: denies: eye pain, eye discharge, vision change ENT: denies: ear pain, throat pain Respiratory: denies: cough, shortness of breath, wheezing Cardiovascular: denies: chest pain, palpitations Endocrine: no symptoms reported Gastrointestinal: denies: abdominal pain, nausea, vomiting, diarrhea Genitourinary: abnormal menses. denies: urgency, dysuria, discharge Musculoskeletal: denies: back pain, joint swelling, arthralgia Skin: denies: rash, lesions Neurological: denies: headache, weakness, paresthesias Psychiatric: denies: anxiety, depression Hematological/Lymphatic: denies: easy bleeding, easy bruising ED Past Medical Hx - Past Medical History Previous Medical History?: Yes Hx Hypertension: Yes Hx Congestive Heart Failure: No Hx Diabetes: Yes Hx Seizures: Yes Hx Asthma: Yes Hx COPD: No Additional medical history: hypothyroid,anemia. elevated liver enzymes - Surgical History Past Surgical History?: Yes Hx Cholecystectomy: Yes Hx Appendectomy: Yes Additional Surgical History: 3 c-sections, 1 breast biopsy, 1 liver biposy - Social History Smoking Status: Never Smoker Substance Use Type: None - Medications Home Medications: Home Medications Medication Instructions Recorded Confirmed Last Taken Type metFORMIN 500 mg PO BID 06/04/19 06/04/19 Unknown History AtorvaSTATin [Lipitor] 40 mg PO QHS tablet 06/06/19 Unknown Rx Cyclobenzaprine [Flexeril 10 MG 10 mg PO TID PRN tablet 06/06/19 Unknown Rx TAB] Insulin Glargine [Lantus VIAL] 5 units SUB-Q QHS #1 pen 06/06/19 Unknown Rx hydroCHLOROthiazide [HCTZ] 25 mg PO QDAY tablet 06/06/19 Unknown Rx levETIRAcetam [Keppra TAB] 1,000 mg PO BID #60 tablet 06/06/19 Unknown Rx metFORMIN [Glucophage] 500 mg PO BIDDIAB tablet 06/06/19 Unknown Rx ED Physical Exam - General Limitations: No Limitations General appearance: alert, in no apparent distress - Head Head exam: Present: atraumatic, normocephalic - Neck Neck exam: Present: normal inspection, full ROM. Absent: tenderness, meningismus, lymphadenopathy - GI/Abdominal GI/Abdominal exam: Present: soft, normal bowel sounds. Absent: distended, tenderness, guarding, rebound, rigid, diminished bowel sounds - Extremities Exam Extremities exam: Present: normal inspection, full ROM - Back Exam Back exam: Present: normal inspection, full ROM. Absent: tenderness, CVA tenderness (R), CVA tenderness (L), muscle spasm, paraspinal tenderness, vertebral tenderness, rash noted - Neurological Exam Neurological exam: Present: alert, oriented X3, normal gait - Psychiatric Psychiatric exam: Present: normal affect, normal mood - Skin Skin exam: Present: warm, dry, intact, normal color. Absent: rash ED Course Vital Signs 08/27/19 08/27/19 08/27/19 07:33 09:38 10:10 Temperature 98.0 F Pulse Rate 78 Respiratory 20 18 18 Rate Blood Pressure 139/75 O2 Sat by Pulse 100 99 Oximetry - Reevaluation(s) Reevaluation #1: 08/27/19 11:03 Patient is speaking in full sentences with no signs of distress noted. ED Medical Decision Making - Lab Data Result diagrams: 08/27/19 07:49 08/27/19 07:49 - Medical Decision Making This is a 34-year-old female that presents with dysmenorrhea. Patient is stable and was examined by me. There is no abdominal tenderness. Labs obtained. UA obtained. US doppler pelvic obtained and dictated by the radiologist. Patient is notified of the report with no questions noted by the patient. Vital signs are stable prior to discharge. Patient was also instructed to Follow-up with a OBGYN doctor in 3-5 days or if symptoms worsen and continue return to emergency room as soon as possible. At time of discharge, the patient does not seem toxic or ill in appearance. No acute signs of distress noted. Patient agrees to discharge treatment plan of care. No further questions noted by the patient. Critical care attestation.: If time is entered above; I have spent that time in minutes in the direct care of this critically ill patient, excluding procedure time. ED Disposition Clinical Impression: Dysmenorrhea Disposition: TO HOME OR SELFCARE Is pt being admited?: No Does the pt Need Aspirin: No Condition: Stable Instructions: Dysmenorrhea (ED) Additional Instructions: Follow-up with a OBGYN doctor in 3-5 days or if symptoms worsen and continue return to emergency room as soon as possible. Referrals: PRIMARY CARE, [Primary Care Provider] - 3-5 Days TAMI ALLISON MD [Staff Physician] - 3-5 Days [facility] [Provider Group] - 3-5 Days Forms: Work/School Release Form(ED)
[2019-08-27 11:14] LABS: Alanine Aminotransferase 12 units/L (7-56); BUN/Creatinine Ratio 27; Blood Urea Nitrogen 16 mg/dL (7-17); Calcium 9.2 mg/dL (8.4-10.2); Hemolysis Index 6
== END 2019-08-27 15:09 | disposition home or self-care (01) ==
LOC: ED 07:16
DX: N94.6 Dysmenorrhea, unspecified (principal); I10 Essential (primary) hypertension; E11.9 Type 2 diabetes mellitus without complications; J45.909 Unspecified asthma, uncomplicated; E03.9 Hypothyroidism, unspecified; Z86.2 Personal history of diseases of the blood and blood-forming organs and certain disorders involving the immune mechanism; Z90.49 Acquired absence of other specified parts of digestive tract; Z88.6 Allergy status to analgesic agent; Z88.2 Allergy status to sulfonamides
CPT/HCPCS: 36415; 80053; 81001; 84703; 85025; 93975

== ENCOUNTER 2019-11-11 19:31 | Emergency (ER) | payer MEDICARE ==
--- NOTE | 2019-11-11 20:02 | Emergency Department Report ---
Blank Doc - Documentation Documentation: 34-year-old female that presents with dizziness and left foot pain. Stated foot got stuck on the stairs. Exam: posterior foot tenderness noted. This initial assessment/diagnostic orders/clinical plan/treatment(s) is/are subject to change based on patient's health status, clinical progression and re- assessment by fellow clinical providers in the ED. Further treatment and workup at subsequent clinical providers discretion. Patient/guardians urged not to elope from the ED as their condition may be serious if not clinically assessed and managed. Initial orders include: 1- Patient sent to [facility] for further evaluation and treatment 2- xrays 3- labs w/ orthostatic vitals
[2019-11-11 20:27] LABS: Basophils % (Auto) 0.6 % (0.0-1.8); Eosinophils # (Auto) 0.2 K/mm3 (0.0-0.4); Eosinophils % (Auto) 3.7 % (0.0-4.3); Hematocrit 31.8 % (30.3-42.9); Hemoglobin 10.8 gm/dl (10.1-14.3); Lymphocytes # (Auto) 0.9 K/mm3 (1.2-5.4); Lymphocytes % (Auto) 17.5 % (13.4-35.0); Mean Corpuscular HGB Conc 34 % (30-34); Mean Corpuscular Volume 85 fl (79-97); Monocytes # (Auto) 0.4 K/mm3 (0.0-0.8); Monocytes % (Auto) 7.3 % (0.0-7.3); Platelet Count 239 K/mm3 (140-440); Red Blood Count 3.76 M/mm3 (3.65-5.03); Red Cell Distribution Width 18.2 % (13.2-15.2)
[2019-11-11 20:48] LABS: Alanine Aminotransferase 10 units/L (7-56); Albumin 4.2 g/dL (3.9-5); BUN/Creatinine Ratio 30; Blood Urea Nitrogen 18 mg/dL (7-17)
--- NOTE | 2019-11-11 21:04 | XRay Report ---
Left foot 3 views INDICATION: Left foot pain following fall IMPRESSION: No discrete fracture or subluxation of the left foot is identified. Signer Name: Martin Medeiros MD Signed: 11/11/2019 8:59 PM Workstation Name: [id number]
[2019-11-11 21:08] LABS: Bilirubin,Urine NEG (Negative); Blood,Urine NEG (Negative); Color,Urine Yellow (Yellow); Mucus,Urine 1+ /HPF; Protein,Urine <15 mg/dL mg/dL (Negative); Urobilinogen,Urine < 2.0 mg/dL (<2.0)
[2019-11-11] MEDS ORDERED: MECLIZINE 25 MG TAB PO ONE (21:19)
--- NOTE | 2019-11-11 21:28 | Emergency Department Report ---
HPI - General Chief Complaint: Dizziness Time Seen by Provider: 11/11/19 19:59 - HPI HPI: Room 25 The patient is a 34-year-old female present with a chief complaint of dizziness and left foot pain. The patient states she has had continual dizziness for the past 3 days feel as though the room is moving towards her. Patient admits to nausea vomiting as well for the past 3 days. The patient states this morning while going down the stairs the dizziness caused her to fall injuring her left heel. Patient denies loss of consciousness. Patient denies history of fever. The patient states she suffered a calcaneal fracture in May 2019 and was janee ated by an orthopedic surgeon. Patient states she injured the same heel during her fall. ED Past Medical Hx - Past Medical History Previous Medical History?: Yes Hx Hypertension: Yes Hx Diabetes: Yes Hx Seizures: Yes Hx Asthma: Yes Additional medical history: hypothyroid,anemia. elevated liver enzymes - Surgical History Past Surgical History?: Yes Hx Cholecystectomy: Yes Hx Appendectomy: Yes Additional Surgical History: 3 c-sections, 1 breast biopsy, 1 liver biposy - Family History Family history: no significant - Social History Smoking Status: Never Smoker Substance Use Type: None (Denies illicit drug use) - Medications Home Medications: Home Medications Medication Instructions Recorded Confirmed Last Taken Type metFORMIN 500 mg PO BID 06/04/19 06/04/19 Unknown History AtorvaSTATin [Lipitor] 40 mg PO QHS tablet 06/06/19 Unknown Rx Cyclobenzaprine [Flexeril 10 MG 10 mg PO TID PRN tablet 06/06/19 Unknown Rx TAB] Insulin Glargine [Lantus VIAL] 5 units SUB-Q QHS #1 pen 06/06/19 Unknown Rx hydroCHLOROthiazide [HCTZ] 25 mg PO QDAY tablet 06/06/19 Unknown Rx levETIRAcetam [Keppra TAB] 1,000 mg PO BID #60 tablet 06/06/19 Unknown Rx metFORMIN [Glucophage] 500 mg PO BIDDIAB tablet 06/06/19 Unknown Rx Meclizine [Antivert] 25 mg PO TID PRN #20 tablet 11/11/19 Unknown Rx Ondansetron [Zofran ODT TAB] 8 mg PO Q8HR #20 tab.rapdis 11/11/19 Unknown Rx ED Review of Systems ROS: Stated complaint: LEFT HEEL PAIN, DIZZINESS Other details as noted in HPI Constitutional: no symptoms reported Respiratory: no symptoms reported Endocrine: no symptoms reported Gastrointestinal: nausea, vomiting Musculoskeletal: arthralgia Neurological: vertigo Physical Exam - Physical Exam Vital Signs: Vital Signs 11/11/19 11/11/19 19:39 20:55 Temperature 98.5 F 99 F Pulse Rate 84 74 Respiratory 18 18 Rate Blood Pressure 139/78 Blood Pressure 100/56 [Right] O2 Sat by Pulse 100 99 Oximetry Physical Exam: GENERAL: The patient is well-developed well-nourished female lying on stretcher not appearing to be in acute distress. [] HEENT: Normocephalic. Atraumatic. Extraocular motions are intact. Patient has moist mucous membranes. No nystagmus NECK: Supple. Trachea midline CHEST/LUNGS: Clear to auscultation. There is no respiratory distress noted. HEART/CARDIOVASCULAR: Regular. There is no tachycardia. There is no gallop rub or murmur. ABDOMEN: Abdomen is soft, nontender. Patient has normal bowel sounds. There is no abdominal distention. SKIN: There is no rash. There is no edema. There is no diaphoresis. NEURO: The patient is awake, alert, and oriented. The patient is cooperative. The patient has no focal neurologic deficits. The patient has normal speech. Cranial nerves II through XII grossly intact, no drift. No dysmetria noted with [id number] bilaterally. No nystagmus MUSCULOSKELETAL: There is tenderness to palpation of the left heel ED Course Vital Signs 11/11/19 11/11/19 19:39 20:55 Temperature 98.5 F 99 F Pulse Rate 84 74 Respiratory 18 18 Rate Blood Pressure 139/78 Blood Pressure 100/56 [Right] O2 Sat by Pulse 100 99 Oximetry ED Medical Decision Making - Lab Data Result diagrams: 11/11/19 20:13 11/11/19 20:13 Laboratory Tests 11/11/19 11/11/19 11/11/19 20:13 20:13 20:13 WBC 5.1 RBC 3.76 Hgb 10.8 Hct 31.8 MCV 85 MCH 29 MCHC 34 RDW 18.2 H Plt Count 239 Lymph % (Auto) 17.5 [place] % (Auto) 7.3 Eos % (Auto) 3.7 Baso % (Auto) 0.6 Lymph # 0.9 L [place] # 0.4 Eos # 0.2 Baso # 0.0 Seg Neutrophils % 70.9 H Seg Neutrophils # 3.6 Sodium 141 Potassium 4.4 Chloride 105.4 Carbon Dioxide 27 Anion Gap 13 BUN 18 H Creatinine 0.6 L Estimated GFR > 60 BUN/Creatinine Ratio 30 Glucose 87 Calcium 9.0 Total Bilirubin < 0.20 AST 11 ALT 10 Alkaline Phosphatase 80 Total Protein 7.2 Albumin 4.2 Albumin/Globulin Ratio 1.0 HCG, Qual Negative Urine Color Urine Turbidity Urine pH Ur Specific [place] Urine Protein Urine Glucose (UA) Urine Ketones Urine Blood Urine Nitrite Urine Bilirubin Urine Urobilinogen Ur Leukocyte Esterase Urine WBC (Auto) Urine RBC (Auto) U Epithel Cells (Auto) Urine Mucus 11/11/19 20:40 WBC RBC Hgb Hct MCV MCH MCHC RDW Plt Count Lymph % (Auto) [place] % (Auto) Eos % (Auto) Baso % (Auto) Lymph # [place] # Eos # Baso # Seg Neutrophils % Seg Neutrophils # Sodium Potassium Chloride Carbon Dioxide Anion Gap BUN Creatinine Estimated GFR BUN/Creatinine Ratio Glucose Calcium Total Bilirubin AST ALT Alkaline Phosphatase Total Protein Albumin Albumin/Globulin Ratio HCG, Qual Urine Color Yellow Urine Turbidity Clear Urine pH 6.0 Ur Specific [place] 1.025 Urine Protein <15 mg/dl Urine Glucose (UA) Neg Urine Ketones Neg Urine Blood Neg Urine Nitrite Neg Urine Bilirubin Neg Urine Urobilinogen < 2.0 Ur Leukocyte Esterase Neg Urine WBC (Auto) 2.0 Urine RBC (Auto) 2.0 U Epithel Cells (Auto) 1.0 Urine Mucus 1+ - EKG Data -: EKG Interpreted by Me EKG shows normal: sinus rhythm Rate: normal - EKG Data When compared to previous EKG there are: previous EKG unavailable Interpretation: nonspecific ST-T wave isidro (T wave inversion in lead III) - Radiology Data Radiology results: report reviewed (Left foot x-ray, CT head), image reviewed (L eft foot x-ray, CT head) interpreted by me: Left foot x-ray-no acute fracture [facility] [address] [place] [address] XRay Report Signed Patient: JAIME MELLO MR#: [id number] : 1985 Acct:[id number] Age/Sex: 34 / F ADM Date: 11/11/19 Loc: ED Attending Dr: Ordering Physician: CHATA HOUSER NP Date of Service: 11/11/19 Procedure(s): XR foot 3+V LT Accession Number(s): [id number] cc: CHATA HOUSER NP Fluoro Time In Minutes: Left foot 3 views INDICATION: Left foot pain following fall IMPRESSION: No discrete fracture or subluxation of the left foot is identified. Signer Name: Martin Medeiros MD Signed: 11/11/2019 8:59 PM Workstation Name: [id number] Transcribed By: BC Dictated By: Martin Medeiros MD Electronically Authenticated By: Martin Medeiros MD Signed Date/Time: 11/11/192058 DD/ 58 TD/TT: [facility] [address] [place] [address] Cat Scan Report Signed Patient: JAIME MELLO MR#: [id number] : 1985 Acct:[id number] Age/Sex: 34 / F ADM Date: 11/11/19 Loc: ED Attending Dr: Ordering Physician: ANTOINETTE DELCID MD Date of Service: 11/11/19 Procedure(s): CT head/brain wo con Accession Number(s): [id number] cc: ANTOINETTE DELCID MD CT head/brain wo con INDICATION / CLINICAL INFORMATION: Dizziness, fall. TECHNIQUE: Axial CT imaging of the brain was obtained without contrast. Coronal and sagittal reformatted imaging obtained and reviewed. All CT scans at this location are performed using CT dose reduction for ALARA by means of automated exposure control. COMPARISON: Prior head CT, 06/04/2019 FINDINGS: No intracranial hemorrhage, mass, or midline shift. No extra-axial fluid collection or acute territorial infarction is noted. Ventricular system and basilar cisterns are unremarkable. Visualized paranasal sinuses and mastoid air cells are well aerated and clear. I do not see a calvarial fracture IMPRESSION: 1. No acute intracranial abnormality. Signer Name: Lazara Harvey MD Signed: 11/11/2019 9:53 PM Workstation Name: [id number] Transcribed By: JR Dictated By: Lazara Harvey MD Electronically Authenticated By: Lazara Harvey MD Signed Date/Time: 11/11/192152 DD/ 50 TD/TT: - Differential Diagnosis Vertigo, calcaneal fracture, intracranial mass, intracranial hemorrhage Critical care attestation.: If time is entered above; I have spent that time in minutes in the direct care of this critically ill patient, excluding procedure time. ED Disposition Clinical Impression: Vertigo Disposition: DC-01 TO HOME OR SELFCARE Is pt being admited?: No Does the pt Need Aspirin: No Condition: Stable Instructions: Vertigo (ED) Additional Instructions: Return to the emergency department should you develop worsening symptoms, inability to tolerate food or liquids, high fever or any other concerns Prescriptions: Meclizine [Antivert] 25 mg PO TID PRN #20 tablet PRN Reason: Vertigo Ondansetron [Zofran ODT TAB] 8 mg PO Q8HR #20 tab.rapdis Referrals: [facility] MD TAMMIE [Primary Care Provider] - 3-5 Days LEIDY FRANCES MD [Staff Physician] - 3-5 Days (Dr. Frances is a neurologist. Please follow-up with him for further evaluation) EVA CURTIS MD [Staff Physician] - 3-5 Days (Dr. Curtis is a primary physician) Time of Disposition: 22:55
--- NOTE | 2019-11-11 21:57 | Cat Scan Report ---
CT head/brain wo con INDICATION / CLINICAL INFORMATION: Dizziness, fall. TECHNIQUE: Axial CT imaging of the brain was obtained without contrast. Coronal and sagittal reformatted imaging obtained and reviewed. All CT scans at this location are performed using CT dose reduction for ALAR A by means of automated exposure control. COMPARISON: Prior head CT, 06/04/2019 FINDINGS: No intracranial hemorrhage, mass, or midline shift. No extra-axial fluid collection or acute territor ial infarction is noted. Ventricular system and basilar cisterns are unremarkable. Visualized paranasal sinuses and mastoid air cells are well aerated and clear. I do not see a calvari al fracture IMPRESSION: 1. No acute intracranial abnormality. Signer Name: Lazara Harvey MD Signed: 11/11/2019 9:53 PM Workstation Name: [id number]
[2019-11-11 22:33] VITALS: BP 111/58
== END 2019-11-11 23:10 | disposition home or self-care (01) ==
LOC: ED 19:31
DX: R42 Dizziness and giddiness (principal); M79.672 Pain in left foot; R11.2 Nausea with vomiting, unspecified; I10 Essential (primary) hypertension; E11.9 Type 2 diabetes mellitus without complications; J45.909 Unspecified asthma, uncomplicated; E03.9 Hypothyroidism, unspecified; Z90.49 Acquired absence of other specified parts of digestive tract
CPT/HCPCS: 36415; 70450; 80053; 81001; 84703; 85025; 93005

== ENCOUNTER 2020-05-07 21:34 | Observation (INO) | payer MEDICARE ==
[2020-05-08 03:25] LABS: Basophils % (Auto) 0.6 % (0.0-1.8); Eosinophils # (Auto) 0.3 K/mm3 (0.0-0.4); Eosinophils % (Auto) 4.5 % (0.0-4.3); Hematocrit 34.7 % (30.3-42.9); Lymphocytes # (Auto) 1.5 K/mm3 (1.2-5.4); Lymphocytes % (Auto) 23.6 % (13.4-35.0); Mean Corpuscular HGB Conc 34 % (30-34); Mean Corpuscular Volume 93 fl (79-97); Monocytes # (Auto) 0.6 K/mm3 (0.0-0.8); Monocytes % (Auto) 9.2 % (0.0-7.3); Platelet Count 261 K/mm3 (140-440); Red Blood Count 3.74 M/mm3 (3.65-5.03)
[2020-05-08 03:30] LABS: Red Cell Distribution Width 20.3 % (13.2-15.2)
[2020-05-08 04:03] LABS: Alanine Aminotransferase 16 units/L (7-56); Albumin 4.1 g/dL (3.9-5); Blood Urea Nitrogen 19 mg/dL (7-17); Calcium 9.3 mg/dL (8.4-10.2); Hemolysis Index 5
[2020-05-08 04:05] LABS: BUN/Creatinine Ratio 38
--- NOTE | 2020-05-08 12:47 | Emergency Department Report ---
HPI - General Chief Complaint: Neuro Symptoms/Deficit Time Seen by Provider: 05/08/20 12:21 - HPI HPI: This is a 34-year-old -[place] female presents to the emergency department with a complaint of a 2-day history of right-sided numbness and tingl ing to the face and arm, sore throat, slurred speech. She has a mild headache that is generalized. She denies any fever, chest pain, shortness of breath, nausea or vomiting. Patient has a history of asthma, diabetes, hypertension, hypothyroidism, anemia and says that she has had a previous TIA. Patient says that she waited to come in because she was resistant but she noticed that the slurred speech was worsening, and was encouraged by her mother to be seen. She has not taken anything for symptoms prior to presentation. No recent travel or sick contacts at home. ED Past Medical Hx - Past Medical History Previous Medical History?: Yes Hx Hypertension: Yes Hx Congestive Heart Failure: No Hx Diabetes: Yes Hx Seizures: Yes Hx Asthma: Yes Hx COPD: No Additional medical history: hypothyroid,anemia. elevated liver enzymes - Surgical History Past Surgical History?: Yes Hx Cholecystectomy: Yes Hx Appendectomy: Yes Additional Surgical History: 3 c-sections, 1 breast biopsy, 1 liver biposy - Social History Smoking Status: Never Smoker Substance Use Type: None - Medications Home Medications: Home Medications Medication Instructions Recorded Confirmed Last Taken Type metFORMIN 500 mg PO BID 06/04/19 06/04/19 Unknown History AtorvaSTATin [Lipitor] 40 mg PO QHS tablet 06/06/19 Unknown Rx Cyclobenzaprine [Flexeril 10 MG 10 mg PO TID PRN tablet 06/06/19 Unknown Rx TAB] Insulin Glargine [Lantus VIAL] 5 units SUB-Q QHS #1 pen 06/06/19 Unknown Rx hydroCHLOROthiazide [HCTZ] 25 mg PO QDAY tablet 06/06/19 Unknown Rx levETIRAcetam [Keppra TAB] 1,000 mg PO BID #60 tablet 06/06/19 Unknown Rx metFORMIN [Glucophage] 500 mg PO BIDDIAB tablet 06/06/19 Unknown Rx Meclizine [Antivert] 25 mg PO TID PRN #20 tablet 11/11/19 Unknown Rx Ondansetron [Zofran ODT TAB] 8 mg PO Q8HR #20 tab.rapdis 11/11/19 Unknown Rx ED Review of Systems ROS: Stated complaint: NUMBNESS Other details as noted in HPI Comment: All other systems reviewed and negative Constitutional: denies: chills Eyes: denies: eye pain, vision change ENT: throat pain. denies: ear pain Respiratory: denies: cough, shortness of breath Cardiovascular: denies: chest pain, palpitations Gastrointestinal: denies: abdominal pain, vomiting Genitourinary: denies: dysuria, discharge Musculoskeletal: denies: back pain, arthralgia Skin: denies: rash, lesions Neurological: headache. denies: numbness, paresthesias Physical Exam - Physical Exam Vital Signs: Vital Signs 05/08/20 02:08 Temperature 98 F Pulse Rate 95 H Respiratory 18 Rate Blood Pressure 121/88 [Left] O2 Sat by Pulse 99 Oximetry Physical Exam: GENERAL: The patient is well-developed well-nourished. HENT: Normocephalic. Atraumatic. Patient has moist mucous membranes. EYES: Extraocular motions are intact. Pupils equal reactive to light bilaterally. No nystagmus. Oropharynx is clear without any tonsillar hypertrophy, erythema or exudates. NECK: Supple. Trachea is midline. CHEST/LUNGS: Clear to auscultation. There is no respiratory distress noted. HEART/CARDIOVASCULAR: Regular. There is no tachycardia. There is no murmur. ABDOMEN: Abdomen is soft, nontender. Patient has normal bowel sounds. SKIN: Skin is warm and dry. NEURO: The patient is awake, alert, and oriented. The patient is cooperative. There is subjective decrease sensation to the right side of the face and the right arm when compared to the left. Mild dysarthria. There is a right upper extremity drift. MUSCULOSKELETAL: There is no tenderness or deformity. There is no limitation range of motion. ED Course Vital Signs 05/08/20 02:08 Temperature 98 F Pulse Rate 95 H Respiratory 18 Rate Blood Pressure 121/88 [Left] O2 Sat by Pulse 99 Oximetry ED Medical Decision Making - Lab Data Result diagrams: 05/08/20 02:59 05/08/20 02:59 Lab Results 05/08/20 05/08/20 05/08/20 Range/Units 02:59 02:59 02:59 WBC 6.3 (4.5-11.0) K/mm3 RBC 3.74 (3.65-5.03) M/mm3 Hgb 12.0 (10.1-14.3) gm/dl Hct 34.7 (30.3-42.9) % MCV 93 (79-97) fl MCH 32 (28-32) pg MCHC 34 (30-34) % RDW 20.3 H (13.2-15.2) % Plt Count 261 (140-440) K/mm3 Lymph % (Auto) 23.6 (13.4-35.0) % [place] % (Auto) 9.2 H (0.0-7.3) % Eos % (Auto) 4.5 H (0.0-4.3) % Baso % (Auto) 0.6 (0.0-1.8) % Lymph # (Auto) 1.5 (1.2-5.4) K/mm3 [place] # (Auto) 0.6 (0.0-0.8) K/mm3 Eos # (Auto) 0.3 (0.0-0.4) K/mm3 Baso # (Auto) 0.0 (0.0-0.1) K/mm3 Seg Neutrophils % 62.1 (40.0-70.0) % Seg Neutrophils # 3.9 (1.8-7.7) K/mm3 Sodium 140 (137-145) mmol/L Potassium 3.5 L (3.6-5.0) mmol/L Chloride 104.9 (98-107) mmol/L Carbon Dioxide 23 (22-30) mmol/L Anion Gap 16 mmol/L BUN 19 H (7-17) mg/dL Creatinine 0.5 L (0.6-1.2) mg/dL Estimated GFR > 60 ml/min BUN/Creatinine Ratio 38 % Glucose 102 H (65-100) mg/dL Calcium 9.3 (8.4-10.2) mg/dL Total Bilirubin < 0.20 (0.1-1.2) mg/dL AST 11 (5-40) units/L ALT 16 (7-56) units/L Alkaline Phosphatase 76 (35-129) units/L Total Protein 7.4 (6.3-8.2) g/dL Albumin 4.1 (3.9-5) g/dL Albumin/Globulin Ratio 1.2 % TSH (0.270-4.200) mlU/mL Free T4 (0.76-1.46) ng/dL HCG, Qual Negative (Negative) 05/08/20 05/08/20 Range/Units 02:59 13:22 WBC (4.5-11.0) K/mm3 RBC (3.65-5.03) M/mm3 Hgb (10.1-14.3) gm/dl Hct (30.3-42.9) % MCV (79-97) fl MCH (28-32) pg MCHC (30-34) % RDW (13.2-15.2) % Plt Count (140-440) K/mm3 Lymph % (Auto) (13.4-35.0) % [place] % (Auto) (0.0-7.3) % Eos % (Auto) (0.0-4.3) % Baso % (Auto) (0.0-1.8) % Lymph # (Auto) (1.2-5.4) K/mm3 [place] # (Auto) (0.0-0.8) K/mm3 Eos # (Auto) (0.0-0.4) K/mm3 Baso # (Auto) (0.0-0.1) K/mm3 Seg Neutrophils % (40.0-70.0) % Seg Neutrophils # (1.8-7.7) K/mm3 Sodium (137-145) mmol/L Potassium (3.6-5.0) mmol/L Chloride (98-107) mmol/L Carbon Dioxide (22-30) mmol/L Anion Gap mmol/L BUN (7-17) mg/dL Creatinine (0.6-1.2) mg/dL Estimated GFR ml/min BUN/Creatinine Ratio % Glucose (65-100) mg/dL Calcium (8.4-10.2) mg/dL Total Bilirubin (0.1-1.2) mg/dL AST (5-40) units/L ALT (7-56) units/L Alkaline Phosphatase (35-129) units/L Total Protein (6.3-8.2) g/dL Albumin (3.9-5) g/dL Albumin/Globulin Ratio % TSH 11.080 H (0.270-4.200) mlU/mL Free T4 0.92 (0.76-1.46) ng/dL HCG, Qual (Negative) - EKG Data -: EKG Interpreted by Me EKG shows normal: sinus rhythm, axis, intervals, QRS complexes, ST-T waves Rate: normal - EKG Data When compared to previous EKG there are: previous EKG unavailable Interpretation: normal EKG - Radiology Data Radiology results: image reviewed interpreted by me: CT HEAD WITHOUT CONTRAST INDICATION / CLINICAL INFORMATION: Right sided numbness, slurred speech. TECHNIQUE: All CT scans at this location are performed using CT dose reduction for ALARA by means of automated exposure control. COMPARISON: Head CT 11/11/2019 and 06/04/2019. FINDINGS: HEMORRHAGE: No evidence of intracranial hemorrhage or extra-axial fluid collection. EXTRA-AXIAL SPACES: Cortical sulci, sylvian fissures and basilar cisterns have an unremarkable appearance. VENTRICULAR SYSTEM: The third and lateral ventricles are of normal size and configuration. CEREBRAL PARENCHYMA: No areas of abnormal brain parenchy mal attenuation are identified. There is no indication of recent infarction. MIDLINE SHIFT OR HERNIATION: There is no mass effect. CEREBELLUM / BRAINSTEM: Brainstem and cerebellum have an unremarkable appearance. MIDLINE STRUCTURES:No abnormalities of the pituitary gland or pineal region are identified. INTRACRANIAL VESSELS:No abnormalities are identified on this noncontrast head CT. ORBITS: visualized portions of the orbits have an unremarkable appearance. SOFT TISSUES of HEAD: No significant abnormality. CALVARIUM: Evaluation of bone windows reveals no abnormalities. PARANASAL SINUSES / MASTOID AIR CELLS: Visualized portions of the paranasal sinuses are free from inflammatory mucosal disease. Mastoid air cells are normally pneumatized. IMPRESSION: 1. Normal head CT without contrast. No interval change. - Medical Decision Making This patient presents with a complaint of some difficulty with speech, right- sided facial and arm numbness, throat pain, that has been going on for the past 2 days. On examination the patient does have subjective decrease sensation to the right face and arm, mild dysarthria, the right upper extremity mild pronator drift. Oropharynx appears unremarkable. CT scan of the head without contrast does not show any hemorrhage or large territorial infarction, or any other acute process. The patient was an NIH stroke scale of 4. She is outside of the window for TPA or thrombectomy. She had a consult by telemedicine neurology who recommended starting the patient on Plavix and admitting for a stroke work-up. Patient was accepted for admission by the hospitalist, Dr. Alvarez. Critical Care Time: Yes Critical care time in (mins) excluding proc time.: 35 Critical care attestation.: If time is entered above; I have spent that time in minutes in the direct care of this critically ill patient, excluding procedure time. Critical care time was spent on this patient in doing her initial evaluation, multiple reevaluations, ordering and interpretation of labs and imaging, discussion with the neurologist, multiple discussions with the patient. Critical Care Time: 35 minutes ED Disposition Clinical Impression: CVA (cerebral vascular accident) Qualifiers: CVA mechanism: unspecified Qualified Code(s): I63.9 - Cerebral infarction, unspecified Disposition: DC-09 OP ADMIT IP TO THIS HOSP Is pt being admited?: Yes Condition: Serious Time of Disposition: 19:03 - Assessment Assessment Interval: Baseline - Level of Consciousness 1a. Level of Consciousness: alert/keenly responsive - LOC Questions 1b. LOC Questions: answers both correctly - LOC Command 1c. LOC Commands: performs tasks correctly - Best Gaze 2. Best Gaze: normal - Visual 3. Visual: no visual loss - Facial Palsy 4. Facial Palsy: minor paralysis - Motor Arm 5a. Motor Arm Left: no drift 5b. Motor Arm Right: drift - Motor Leg 6a. Motor Leg Left: no drift 6b. Motor Leg Right: no drift - Limb Ataxia 7. Limb Ataxia: absent - Sensory 8. Sensory: mild/moderate sensory loss - Best Language 9. Best Language: no aphasia - Dysarthria 10. Dysarthria: mild/moderate dysarthria - Extinction and Inattention 11. Extinction/Inattention: no abnormality - Scoring Total Score: 4 Stroke Severity: Minor Stroke
[2020-05-08] MEDS ORDERED: MORPHINE 2 MG/1 ML INJ IV ONE (13:13)
--- NOTE | 2020-05-08 13:52 | Cat Scan Report ---
CT HEAD WITHOUT CONTRAST INDICATION / CLINICAL INFORMATION: Right sided numbness, slurred speech. TECHNIQUE: All CT scans at this location are performed using CT dose reduction for ALARA by means of automated e xposure control. COMPARISON: Head CT 11/11/2019 and 06/04/2019. FINDINGS: HEMORRHAGE: No evidence of intracranial hemorrhage or extra-axial fluid collection. EXTRA-AXIAL SPACES: Cortical sulci, sylvian fissures and basilar cisterns have an unremarkable appear ance. VENTRICULAR SYSTEM: The third and lateral ventricles are of normal size and configuration. CEREBRAL PARENCHYMA: No areas of abnormal brain parenchymal attenuation are identified. There is no i ndication of recent infarction. MIDLINE SHIFT OR HERNIATION: There is no mass effect. CEREBELLUM / BRAINSTEM: Brainstem and cerebellum have an unremarkable appearance. MIDLINE STRUCTURES:No abnormalities of the pituitary gland or pineal region are identified. INTRACRANIAL VESSELS:No abnormalities are identified on this noncontrast head CT. ORBITS: visualized portions of the orbits have an unremarkable appearance. SOFT TISSUES of HEAD: No significant abnormality. CALVARIUM: Evaluation of bone windows reveals no abnormalities. PARANASAL SINUSES / MASTOID AIR CELLS: Visualized portions of the paranasal sinuses are free from inf lammatory mucosal disease. Mastoid air cells are normally pneumatized. IMPRESSION: 1. Normal head CT without contrast. No interval change. Signer Name: Александр Pool MD Signed: 05/08/2020 1:47 PM Workstation Name: [id number]
[2020-05-08] MEDS ORDERED: CLOPIDOGREL 75 MG TAB PO ONE (14:02)
--- NOTE | 2020-05-08 14:02 | Consultation ---
Medications and Allergies Allergies Allergy/AdvReac Type Severity Reaction Status Date / Time amoxicillin Allergy Unknown Verified 06/01/19 15:04 aspirin Allergy Hives Verified 06/04/19 23:20 sulfamethoxazole Allergy Unknown Verified 06/01/19 15:04 [From Bactrim] tramadol Allergy Unknown Verified 06/01/19 15:04 trimethoprim [From Bactrim] Allergy Unknown Verified 06/01/19 15:04 Home Medications Medication Instructions Recorded Confirmed Last Taken Type metFORMIN 500 mg PO BID 06/04/19 06/04/19 Unknown History AtorvaSTATin [Lipitor] 40 mg PO QHS tablet 06/06/19 Unknown Rx Cyclobenzaprine [Flexeril 10 MG 10 mg PO TID PRN tablet 06/06/19 Unknown Rx TAB] Insulin Glargine [Lantus VIAL] 5 units SUB-Q QHS #1 pen 06/06/19 Unknown Rx hydroCHLOROthiazide [HCTZ] 25 mg PO QDAY tablet 06/06/19 Unknown Rx levETIRAcetam [Keppra TAB] 1,000 mg PO BID #60 tablet 06/06/19 Unknown Rx metFORMIN [Glucophage] 500 mg PO BIDDIAB tablet 06/06/19 Unknown Rx Meclizine [Antivert] 25 mg PO TID PRN #20 tablet 11/11/19 Unknown Rx Ondansetron [Zofran ODT TAB] 8 mg PO Q8HR #20 tab.rapdis 11/11/19 Unknown Rx Physical Examination - Vital Signs Vital Signs: Vital Signs Temp Pulse Resp BP Pulse Ox 98 F 95 H 18 121/88 99 05/08/20 02:08 05/08/20 02:08 05/08/20 02:08 05/08/20 02:08 05/08/20 02:08 Results - Laboratory Findings CBC and BMP: 05/08/20 02:59 05/08/20 02:59 Abnormal Lab Findings: Abnormal Labs 05/08/20 05/08/20 05/08/20 02:59 02:59 02:59 RDW 20.3 H [place] % (Auto) 9.2 H Eos % (Auto) 4.5 H Potassium 3.5 L BUN 19 H Creatinine 0.5 L Glucose 102 H TSH 11.080 H Assessment and Plan [facility] Tele[facility] Consult Services Stat Consult Date of Service: 05/08/2020 13:25:50 Impression: I63.0 - 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 Recommendations: Initiate Plavix 75 MG Daily Disposition: Neurology Follow Up Recommended Sign Out: Discussed with Emergency Department Provider Chief Complaint: R face and arm numbness, speech abnormality History of Present Illness: Patient is a 34 year old Female. 34 yo F h/o HTN, HL, DM, TIA 1 year ago w resolved symptoms w onset 2 days ago. Pt not on asa due to asa allergy. Pt has been compliant w her medications recently. Past Medical History: Hypertension Diabetes Mellitus Hyperlipidemia Stroke Anticoagulant use: No Antiplatelet use: No Examination: BP(unknown), Pulse(unknown), Blood Glucose(unknown) 1A: Level of Consciousness - Alert; keenly responsive + 0 1B: Ask Month and Age - Both Questions Right + 0 1C: Blink Eyes & Squeeze Hands - Performs Both Tasks + 0 2: Test Horizontal Extraocular Movements - Normal + 0 3: Test Visual Villanueva - No Visual Loss + 0 4: Test Facial Palsy (Use Grimace if Obtunded) - Minor paralysis (flat nasolabial fold, smile asymmetry) + 1 5A: Test Left Arm Motor Drift - No Drift for 10 Seconds + 0 5B: Test Right Arm Motor Drift - Drift, but doesn't hit bed + 1 6A: Test Left Leg Motor Drift - No Drift for 5 Seconds + 0 6B: Test Right Leg Motor Drift - No Drift for 5 Seconds + 0 7: Test Limb Ataxia (FNF/Heel-Coleman) - No Ataxia + 0 8: Test Sensation - Mild-Moderate Loss: Less Sharp/More Dull + 1 9: Test Language/Aphasia - Normal; No aphasia + 0 10: Test Dysarthria - Mild-Moderate Dysarthria: Slurring but can be understood + 1 11: Test Extinction/Inattention - No abnormality + 0 NIHSS Score: 4 Patient/Family was informed the Neurology Consult would happen via TeleHealth consult by way of interactive audio and video telecommunications and consented to receiving care in this manner. Due to the immediate potential for life-threatening deterioration due to underlying acute neurologic illness, I spent 30 minutes providing critical care. This time includes time for face to face visit via telemedicine, review of medical records, imaging studies and discussion of findings with providers, the patient and/or family. Dr Jayde Melara [facility] Case [id number]
--- NOTE | 2020-05-08 14:11 | History and Physical Report ---
History of Present Illness Chief complaint: I feel weak and my speech is slurred History of present illness: 34 YO Female with Obesity Hypoventilation Syndrome, HTN, DM, Seizure Disorder, HLD, Asthma, Hypothyroidism presents to ED for evaluation. Patient states that she has experienced right-sided numbness, tingling and weakness as well as slurred speech over the past 2 days with persistent symptoms over the same t imeframe. EMS notified and upon arrival the patient was found to have a neurologic deficit. A code stroke was called and the patient was transported to [facility] for further care and evaluation of the aforementioned symptoms. Patient seen and evaluated in the emergency department. All lab and imaging studies reviewed. Patient found to have clinical symptoms consistent with CVA. Teleneurology consulted. Patient placed in observation status and initiated on CVA protocol. Patient initiated on antiplatelet therapy. Patient denies fever, chills, chest pain, palpitation, productive cough, skin rash, recent ill contacts, or known exposure to COVID-19. Prior admission on 06/04/2019 reviewed. All medication listed at time of admission has been reconciled. Past History Past Medical History: hypertension, hyperlipidemia, hypothyroidism, seizures Past Surgical History: appendectomy, cholecystectomy, Other (3 c-sections, 1 breast biopsy, 1 liver biposy) Social history: single. denies: smoking, alcohol abuse Family history: diabetes, hypertension Medications and Allergies Allergies Allergy/AdvReac Type Severity Reaction Status Date / Time amoxicillin Allergy Unknown Verified 06/01/19 15:04 aspirin Allergy Hives Verified 06/04/19 23:20 sulfamethoxazole Allergy Unknown Verified 06/01/19 15:04 [From Bactrim] tramadol Allergy Unknown Verified 06/01/19 15:04 trimethoprim [From Bactrim] Allergy Unknown Verified 06/01/19 15:04 Home Medications Medication Instructions Recorded Confirmed Last Taken Type Insulin Glargine [Lantus VIAL] 5 units SUB-Q QHS #1 pen 06/06/19 05/08/20 05/07/20 Rx levETIRAcetam [Keppra TAB] 1,000 mg PO BID #60 tablet 06/06/19 05/08/20 05/08/20 Rx metFORMIN [Glucophage] 500 mg PO BIDDIAB tablet 06/06/19 05/08/20 05/08/20 Rx AtorvaSTATin [Lipitor] 20 mg PO QHS 05/08/20 05/08/20 05/07/20 History Cholecalciferol (Vitamin D3) 5,000 unit PO DAILY 05/08/20 05/08/20 05/08/20 History [Vitamin D3] Iron [Iron 18 MG TAB] 18 mg PO QDAY 05/08/20 05/08/20 05/08/20 History Levothyroxine Sodium [Synthroid] 175 mcg PO QAM 05/08/20 05/08/20 05/07/20 History hydroCHLOROthiazide 50 mg PO DAILY 05/08/20 05/08/20 05/08/20 History [Hydrochlorothiazide] Review of Systems Constitutional: no weight loss, no weight gain, no fever, no chills Ears, nose, mouth and throat: no ear pain, no ear discharge, no tinnitis, no decreased hearing, no nasal congestion Breasts: no change in shape, no swelling, no mass Cardiovascular: no chest pain, no orthopnea, no rapid/irregular heart beat, no edema, no lightheadedness Respiratory: no cough, no cough with sputum, no hemoptysis, no shortness of geronimo ath Gastrointestinal: no abdominal pain, no vomiting, no constipation Genitourinary Female: no pelvic pain, no flank pain, no menorrhagia, no dysuria, no urinary frequency, no urgency, no stress incontinence Rectal: no pain, no incontinence, no bleeding Musculoskeletal: no neck stiffness, no neck pain, no shooting arm pain, no arm numbness/tingling Integumentary: no rash, no pruritis, no redness Neurological: weakness, change in speech, gait dysfunction, motor disturbance, no head injury, no tingling, no syncope, no headaches, no migraines Psychiatric: no anxiety, no memory loss, no change in sleep habits, no insomnia, no hypersomnia, no change in libido, no suicidal ideation Endocrine: no cold intolerance, no polyphagia, no polydipsia, no polyuria, no nocturia, no excessive sweating Hematologic/Lymphatic: no easy bruising, no easy bleeding, no lymphadenopathy, n o lymphedema Allergic/Immunologic: no urticaria, no wheezing, no persistent infections, no anaphylaxis Exam - Constitutional Vitals: Temp Pulse Resp BP Pulse Ox 98 F 95 H 18 121/88 100 05/08/20 02:08 05/08/20 02:08 05/08/20 13:47 05/08/20 02:08 05/08/20 12:49 General appearance: Present: mild distress - EENT Eyes: Present: PERRL ENT: hearing intact, clear oral mucosa - Neck Neck: Present: supple, normal ROM - Respiratory Respiratory effort: normal Respiratory: bilateral: CTA - Cardiovascular Heart Sounds: Present: S1 & S2. Absent: rub, click - Extremities Extremities: pulses symmetrical, No edema Peripheral Pulses: within normal limits - Abdominal General gastrointestinal: Present: soft, non-tender, non-distended, normal bowel sounds Female genitourinary: Present: normal - Integumentary Integumentary: Present: clear, warm, dry - Musculoskeletal Musculoskeletal: right sided weakness - Psychiatric Psychiatric: appropriate mood/affect, intact judgment & insight - Neurologic Neurologic: CNII-XII intact, moves all extremities Results - Labs CBC & Chem 7: 05/08/20 02:59 05/08/20 02:59 Labs: Abnormal lab results 05/08/20 05/08/20 05/08/20 Range/Units 02:59 02:59 02:59 RDW 20.3 H (13.2-15.2) % [place] % (Auto) 9.2 H (0.0-7.3) % Eos % (Auto) 4.5 H (0.0-4.3) % Potassium 3.5 L (3.6-5.0) mmol/L BUN 19 H (7-17) mg/dL Creatinine 0.5 L (0.6-1.2) mg/dL Glucose 102 H (65-100) mg/dL TSH 11.080 H (0.270-4.200) mlU/mL Assessment and Plan - Patient Problems (1) CVA (cerebral vascular accident) Current Visit: Yes Status: Acute Qualifiers: CVA mechanism: unspecified Qualified Code(s): I63.9 - Cerebral infarction, unspecified Plan to address problem: CVA protocol: CT head, neuro check, seizure precaution, aspiration precautions, physical therapy consulted, Occupational Therapy consulted, teleneurology c onsulted, antiplatelet therapy, lipid panel, statin therapy, echocardiogram, carotid Doppler. (2) Obesity hypoventilation syndrome Current Visit: Yes Status: Acute Plan to address problem: Supplemental oxygen, pulse oximetry, noninvasive positive pressure ventilation as clinically indicated, outpatient pulmonary follow-up for sleep study. Balanced diet, increase physical activity at discharge. (3) Seizure disorder Current Visit: Yes Status: Acute Plan to address problem: Continue current therapy, seizure precautions. (4) DVT prophylaxis Current Visit: No Status: Acute Plan to address problem: SCD to bilateral lower extremities while in bed, patient is ambulatory.
[2020-05-08] MEDS ORDERED: PROMETHAZINE 25 MG RECT SUPP PR PRN (14:12)
[2020-05-08] MEDS ORDERED: ONDANSETRON 4 MG/2 ML INJ IV PRN (14:12)
[2020-05-08] MEDS ORDERED: METOCLOPRAMIDE 10 MG TAB PO PRN (14:12)
[2020-05-08] MEDS ORDERED: MAGNESIUM HYDROXIDE (MOM) ORAL LIQD UDC PO PRN (14:12)
[2020-05-08] MEDS ORDERED: MECLIZINE 25 MG TAB PO PRN (14:14)
[2020-05-08] MEDS ORDERED: CYCLOBENZAPRINE 10 MG TAB PO PRN (14:14)
[2020-05-08] MEDS: hydroCHLOROthiazide 25 MG TAB PO SCH (15:01)
[2020-05-08] MEDS: ACETAMINOPHEN 325 MG TAB PO PRN (19:58)
[2020-05-08] MEDS: ONDANSETRON 8 MG ODT TAB PO SCH (21:51)
[2020-05-08] MEDS: levETIRAcetam 500 MG TAB PO SCH (21:51)
[2020-05-09] MEDS: PHENOL 1.4% 177 ML BOTTLE MM PRN ×2 (02:03→09:39)
[2020-05-09] MEDS: LEVOTHYROXINE 75 MCG TAB PO SCH (06:10)
[2020-05-09] MEDS: ONDANSETRON 8 MG ODT TAB PO SCH ×3 (06:10→21:24)
[2020-05-09] MEDS: LEVOTHYROXINE 100 MCG TAB PO SCH (06:10)
[2020-05-09] MEDS: CHOLECALCIFEROL (VIT D3) 5,000 UNIT TAB PO SCH (09:33)
[2020-05-09] MEDS: hydroCHLOROthiazide 25 MG TAB PO SCH (09:34)
[2020-05-09] MEDS: CLOPIDOGREL 75 MG TAB PO SCH (09:34)
[2020-05-09] MEDS: FERROUS SULFATE 325 MG TAB PO SCH (09:34)
[2020-05-09] MEDS: levETIRAcetam 500 MG TAB PO SCH ×2 (09:34→21:24)
[2020-05-09] MEDS ORDERED: LEVOTHYROXINE SODIUM 175 MCG PO SCH (10:00)
[2020-05-09] MEDS ORDERED: NON-FORMULARY EACH (Iron [Iron 18 Mg Tab] 18 MG Tablet) PO SCH (10:00)
[2020-05-09] MEDS ORDERED: hydroCHLOROthiazide 25 MG TAB PO SCH (10:00)
[2020-05-09] MEDS: ACETAMINOPHEN 325 MG TAB PO PRN ×2 (16:55→22:01)
[2020-05-10] MEDS: ONDANSETRON 8 MG ODT TAB PO SCH (05:23)
[2020-05-10] MEDS: LEVOTHYROXINE 100 MCG TAB PO SCH (05:23)
[2020-05-10] MEDS: LEVOTHYROXINE 75 MCG TAB PO SCH (05:23)
--- NOTE | 2020-05-10 11:57 | Progress Note ---
Assessment and Plan - Patient Problems (1) CVA (cerebral vascular accident) Current Visit: Yes Status: Acute Qualifiers: CVA mechanism: unspecified Qualified Code(s): I63.9 - Cerebral infarction, unspecified Plan to address problem: CVA protocol: CT head reviewed, neuro check, seizure precaution, aspiration precautions, physical therapy consulted, Occupational Therapy consulted, teleneurology consulted, antiplatelet therapy, statin therapy. (2) Obesity hypoventilation syndrome Current Visit: Yes Status: Acute Plan to address problem: Supplemental oxygen, pulse oximetry, noninvasive positive pressure ventilation as clinically indicated, outpatient pulmonary follow-up for sleep study. Osbaldo nced diet, increase physical activity at discharge. (3) Seizure disorder Current Visit: Yes Status: Acute Plan to address problem: Continue current therapy, seizure precautions. (4) DVT prophylaxis Current Visit: No Status: Acute Plan to address problem: SCD to bilateral lower extremities while in bed, patient is ambulatory. History Interval history: 34 YO Female HD #2 with CVA, Obesity Hypoventilation Syndrome, HTN, DM, Seizure Disorder, HLD, Asthma, Hypothyroidism. Patient denies any new complaints. Patient complains of persistent right-sided weakness which was present on admission. Patient denies pain. Hospitalist Physical - Constitutional Vitals: Temp Pulse Resp BP Pulse Ox 97.8 F 57 L 18 120/67 97 05/10/20 07:46 05/10/20 07:46 05/10/20 07:46 05/10/20 07:46 05/10/20 07:46 General appearance: Present: mild distress, obese - EENT Eyes: Present: PERRL, EOM intact - Neck Neck: Present: supple - Respiratory Respiratory: bilateral: CTA - Cardiovascular Rhythm: regular Heart Sounds: Present: S1 & S2 - Extremities Extremities: no ischemia Peripheral Pulses: within normal limits - Abdominal General gastrointestinal: soft, non-tender, non-distended - Integumentary Integumentary: Present: clear, dry - Psychiatric Psychiatric: appropriate mood/affect, cooperative - Neurologic Neurologic: CNII-XII intact Results - Labs CBC & Chem 7: 05/08/20 02:59 05/08/20 02:59 Labs: Laboratory Last Values WBC 6.3 K/mm3 (4.5-11.0) 05/08/20 02:59 RBC 3.74 M/mm3 (3.65-5.03) 05/08/20 02:59 Hgb 12.0 gm/dl (10.1-14.3) 05/08/20 02:59 Hct 34.7 % (30.3-42.9) 05/08/20 02:59 MCV 93 fl (79-97) 05/08/20 02:59 MCH 32 pg (28-32) 05/08/20 02:59 MCHC 34 % (30-34) 05/08/20 02:59 RDW 20.3 % (13.2-15.2) H 05/08/20 02:59 Plt Count 261 K/mm3 (140-440) 05/08/20 02:59 Lymph % (Auto) 23.6 % (13.4-35.0) 05/08/20 02:59 [place] % (Auto) 9.2 % (0.0-7.3) H 05/08/20 02:59 Eos % (Auto) 4.5 % (0.0-4.3) H 05/08/20 02:59 Baso % (Auto) 0.6 % (0.0-1.8) 05/08/20 02:59 Lymph # (Auto) 1.5 K/mm3 (1.2-5.4) 05/08/20 02:59 [place] # (Auto) 0.6 K/mm3 (0.0-0.8) 05/08/20 02:59 Eos # (Auto) 0.3 K/mm3 (0.0-0.4) 05/08/20 02:59 Baso # (Auto) 0.0 K/mm3 (0.0-0.1) 05/08/20 02:59 Seg Neutrophils % 62.1 % (40.0-70.0) 05/08/20 02:59 Seg Neutrophils # 3.9 K/mm3 (1.8-7.7) 05/08/20 02:59 Sodium 140 mmol/L (137-145) 05/08/20 02:59 Potassium 3.5 mmol/L (3.6-5.0) L 05/08/20 02:59 Chloride 104.9 mmol/L (98-107) 05/08/20 02:59 Carbon Dioxide 23 mmol/L (22-30) 05/08/20 02:59 Anion Gap 16 mmol/L 05/08/20 02:59 BUN 19 mg/dL (7-17) H 05/08/20 02:59 Creatinine 0.5 mg/dL (0.6-1.2) L 05/08/20 02:59 Estimated GFR > 60 ml/min 05/08/20 02:59 BUN/Creatinine Ratio 38 % 05/08/20 02:59 Glucose 102 mg/dL (65-100) H 05/08/20 02:59 Calcium 9.3 mg/dL (8.4-10.2) 05/08/20 02:59 Total Bilirubin < 0.20 mg/dL (0.1-1.2) 05/08/20 02:59 AST 11 units/L (5-40) 05/08/20 02:59 ALT 16 units/L (7-56) 05/08/20 02:59 Alkaline Phosphatase 76 units/L (35-129) 05/08/20 02:59 Total Protein 7.4 g/dL (6.3-8.2) 05/08/20 02:59 Albumin 4.1 g/dL (3.9-5) 05/08/20 02:59 Albumin/Globulin Ratio 1.2 % 05/08/20 02:59 TSH 11.080 mlU/mL (0.270-4.200) H 05/08/20 02:59 Free T4 0.92 ng/dL (0.76-1.46) 05/08/20 13:22 HCG, Qual Negative (Negative) 05/08/20 02:59 - Diagnostic Impressions Diagnostic Impressions: Echocardiogram 05/08/20 14:13 Transthoracic Echocardiogram Indication: Stroke BP: 121/88 HR: 71 Conclusions *Global left ventricular systolic function is normal. *The estimated ejection fraction is 55-60%. *No atrial septal defected is demonstrated by agitated saline contrast. *The right ventricular global systolic function is normal. *There is no evidence of aortic regurgitation. *There is no evidence of mitral regurgitation. *There is trace tricuspid regurgitation. *The right ventricular systolic pressure is calculated at 18 mmHg. *There is trace pulmonic regurgitation. Findings Left Ventricle: The left ventricular chamber size is normal. Global left ventricular wall motion and contractility are within normal limits. Global left ventricular systolic function is normal. The estimated ejection fraction is 55-60%. Abnormal left ventricular diastolic filling is observed, consistent with impaired relaxation. Left Atrium: The left atrial chamber size is normal. Right Ventricle: The right ventricular cavity size is normal. The right ventricular global systolic function is normal. Right Atrium: The right atrial cavity size is normal. No atrial septal defected is demonstrated by agitated saline contrast. Aortic Valve: The aortic valve structure is normal. There is no evidence of aortic regurgitation. Mitral Valve: The mitral valve leaflets appear normal. There is no evidence of mitral regurgitation. Tricuspid Valve: The tricuspid valve leaflets are normal. There is trace tricuspid regurgitation. The right ventricular systolic pressure is calculated at 18 mmHg. Pulmonic Valve: The pulmonic valve appears normal. There is trace pulmonic regurgitation. Pericardium: There is no pericardial effusion. Venous: The inferior vena cava appears normal. Contrast: Intravenous agitated saline contrast was used to assess intracardiac shunting. Measurements Chambers 2D Name Value Normal Range IVSd (2D) 1.03 cm (0.6 - 1.1) LVPWd (2D) 1.04 cm (0.6 - 1.1) LVIDd (2D) 4.06 cm (3.7 - 5.6) LVIDs (2D) 2.84 cm (2 - 3.8) LV FS (2D) 30.01 % - EF Teichholz (2D) 57.75 % - Ao root diameter (2D) 2.5 cm (2 - 3.7) Volumes/Mass Name Value Normal Range LA ESV SP 4CH (A/L) 23.55 ml - LA ESV SP 2CH (A/L) 26.04 ml - LA ESV BP (A/L) 25.06 ml - LA ESV BP (A/L) index 12.22 ml/m2 - LA ESV SP 4CH (MOD) 21.82 ml - LA ESV SP 2CH (MOD) 24.37 ml - LA ESV BP (MOD) 23.29 ml - LA ESV BP (MOD) index 11.36 ml/m2 - Diastolic/Systolic Function Name Value Normal Range MV E-wave Vmax 0.64 m/sec - MV deceleration time 220.09 msec - MV A-wave Vmax 0.46 m/sec - MV E:A ratio 1.37 ratio - Aortic Valve Name Value Normal Range AV Vmax 1.37 m/sec - AV VTI 24.64 cm - AV peak gradient 7.49 mmHg - AV mean gradient 3.77 mmHg - LVOT diameter 2.06 cm - LVOT Vmax 1.11 m/sec - LVOT VTI 20.55 cm - LVOT peak gradient 4.96 mmHg - LVOT mean gradient 2.45 mmHg - SV LVOT 68.8 ml - PAUL (continuity Vmax) 2.72 cm2 - PAUL (continuity VTI) 2.79 cm2 - Tricuspid Valve Name Value Normal Range TR Vmax 1.96 m/sec - TR peak gradient 15 mmHg - RAP 3 mmHg - RVSP 18 mmHg - IVC diameter 1.98 cm (1.2 - 2.3) Pulmonic Valve/Qp:Qs Name Value Normal Range PV Vmax 1.24 m/sec - PV peak gradient 6.13 mmHg - SD end-diastolic Vmax 1.1 m/sec - PV acceleration time 137.01 msec - Lion/IV: Voiding Method Toilet IV Catheter Type [Left Hand] INT / Saline Lock Active Medications - Current Medications Current Medications: Generic Name Dose Route Start Last Admin Trade Name Freq PRN Reason Stop Dose Admin Acetaminophen 650 mg 05/08/20 14:12 05/09/20 22:01 Acetaminophen 325 Mg Tab PO 650 mg Q4H PRN Administration Pain, Mild (1-3) Atorvastatin Calcium 40 mg 05/08/20 22:00 05/09/20 21:24 Atorvastatin 40 Mg Tab PO 40 mg QHS AMADOU Administration Bisacodyl 10 mg 05/08/20 14:12 Bisacodyl 10 Mg Rect Supp SD QDAY PRN Constipation Cholecalciferol 5,000 unit 05/09/20 10:00 05/09/20 09:33 Cholecalciferol (Vit D3) 5,000 Unit Tab PO 5,000 unit DAILY AMADOU Administration Clopidogrel Bisulfate 75 mg 05/09/20 10:00 05/09/20 09:34 Clopidogrel 75 Mg Tab PO 75 mg QDAY AMADOU Administration Cyclobenzaprine HCl 10 mg 05/08/20 14:14 Cyclobenzaprine 10 Mg Tab PO TID PRN Muscle Spasm Ferrous Sulfate 325 mg 05/09/20 10:00 05/09/20 09:34 Ferrous Sulfate 325 Mg Tab PO 325 mg QAM [facility] Administration Hydrochlorothiazide 25 mg 05/08/20 15:00 05/09/20 09:34 Hydrochlorothiazide 25 Mg Tab PO 25 mg QDAY [facility] Administration Levetiracetam 1,000 mg 05/08/20 22:00 05/09/20 21:24 Levetiracetam 500 Mg Tab PO 1,000 mg BID AMADOU Administration Levothyroxine Sodium 75 mcg 05/09/20 06:00 05/10/20 05:23 Levothyroxine 75 Mcg Tab PO 75 mcg DAILY@0600 [facility] Administration Levothyroxine Sodium 100 mcg 05/09/20 06:00 05/10/20 05:23 Levothyroxine 100 Mcg Tab PO 100 mcg DAILY@0600 [facility] Administration Magnesium Hydroxide 30 ml 05/08/20 14:12 Magnesium Hydroxide (Mom) Oral Liqd Udc PO Q4H PRN Constipation Meclizine HCl 25 mg 05/08/20 14:14 Meclizine 25 Mg Tab PO TID PRN Vertigo Metoclopramide HCl 10 mg 05/08/20 14:12 Metoclopramide 10 Mg Tab PO Q6H PRN Nausea And Vomiting Ondansetron HCl 4 mg 05/08/20 14:12 Ondansetron 4 Mg/2 Ml Inj IV Q8H PRN Nausea And Vomiting Ondansetron HCl 8 mg 05/08/20 22:00 05/10/20 05:23 Ondansetron 8 Mg Odt Tab PO 8 mg Q8HR [facility] Administration Phenol 1 spray 05/09/20 01:49 05/09/20 09:39 Phenol 1.4% 177 Ml Bottle MM 1 spray PRN PRN Administration Sore Throat Promethazine HCl 25 mg 05/08/20 14:12 Promethazine 25 Mg Rect Supp SD Q6H PRN Nausea And Vomiting Sodium Chloride 10 ml 05/08/20 14:12 Sodium Chloride 0.9% 10 Ml Flush Syringe IV PRN PRN LINE FLUSH
--- NOTE | 2020-05-10 12:08 | Discharge Summary ---
Providers - Providers Date of Admission: 05/08/20 14:12 Attending physician: LAURA MATHEWS 05/08/20 14:12 Occupational Therapy Evaluate and Treat [CONS] Routine Comment: Reason For Exam: Neuro deficits Physical Therapy Evaluation and Treat [CONS] Routine Comment: Reason For Exam: Neuro deficits 05/08/20 14:13 Speech Therapy Evaluation and Treat [CONS] Routine Reason For Exam: swallow eval Primary care physician: MEDICARE CONTACT SPECIALIST Hospitalization Condition: Serious - Discharge Diagnoses (1) CVA (cerebral vascular accident) Status: Acute Qualifiers: CVA mechanism: unspecified Qualified Code(s): I63.9 - Cerebral infarction, unspecified (2) Obesity hypoventilation syndrome Status: Acute (3) Seizure disorder Status: Acute (4) DVT prophylaxis Status: Acute Exam - Constitutional Vitals: Temp Pulse Resp BP Pulse Ox 97.8 F 57 L 18 120/67 97 05/10/20 07:46 05/10/20 07:46 05/10/20 07:46 05/10/20 07:46 05/10/20 07:46 Plan Follow up with: PRIMARY MD NIEVES [Primary Care Provider] - 3-5 Days Prescriptions: levETIRAcetam [Keppra TAB] 1,000 mg PO BID #60 tablet AtorvaSTATin [Lipitor] 40 mg PO QHS #30 tablet Clopidogrel [Plavix] 75 mg PO QDAY #30 tablet
[2020-05-10] MEDS: FERROUS SULFATE 325 MG TAB PO SCH (13:03)
[2020-05-10] MEDS: levETIRAcetam 500 MG TAB PO SCH (13:03)
[2020-05-10] MEDS: CHOLECALCIFEROL (VIT D3) 5,000 UNIT TAB PO SCH (13:03)
[2020-05-10] MEDS: hydroCHLOROthiazide 25 MG TAB PO SCH (13:03)
[2020-05-10] MEDS: CLOPIDOGREL 75 MG TAB PO SCH (13:03)
[2020-05-10 13:11] VITALS: BP 107/80
== END 2020-05-10 17:40 | disposition home health service (06) ==
LOC: ED 21:34 → 4A 05-08 14:12
PROVIDERS: ADMIT Internal Medicine; ATTEND Internal Medicine
DX: I63.9 Cerebral infarction, unspecified (principal); E66.2 Morbid (severe) obesity with alveolar hypoventilation; I10 Essential (primary) hypertension; R56.9 Unspecified convulsions; J45.909 Unspecified asthma, uncomplicated; E03.9 Hypothyroidism, unspecified; E78.5 Hyperlipidemia, unspecified; E11.9 Type 2 diabetes mellitus without complications; D64.9 Anemia, unspecified; R79.89 Other specified abnormal findings of blood chemistry; R29.704 NIHSS score 4; Z90.49 Acquired absence of other specified parts of digestive tract; Z98.891 History of uterine scar from previous surgery; Z68.37 Body mass index [BMI] 37.0-37.9, adult; Z79.4 Long term (current) use of insulin; Z98.890 Other specified postprocedural states; Z79.899 Other long term (current) drug therapy; Z79.01 Long term (current) use of anticoagulants
CPT/HCPCS: 36415; 70450; 80053; 82962; 84439; 84443; 84703; 85025; 92610; 93005; 93306; 96374; 97116; 97162; 97165; 99291; A9270; G0378; J2270; Q0162

== ENCOUNTER 2020-07-12 17:42 | Observation (INO) | payer OTHER, MEDICARE ==
--- NOTE | 2020-07-12 18:13 | Event Note ---
ED Screening Note Date of service: 07/12/20 Time: 18:11 ED Screening Note: Pt complains of chest pain, abdominal pain, and hematemesis x yesterday chest pain is pressure like pt states throwing up chunks of blood hx of endoscopy per Margarita sena This initial assessment/diagnostic orders/clinical plan/treatment(s) is/are subject to change based on patients health status, clinical progression and re- assessment by fellow clinical providers in the ED. Further treatment and workup at subsequent clinical providers discretion. Patient/guardian urged not to elope from the ED as their condition may be serious if not clinically assessed and managed. Initial orders include: labs ekg cxr
[2020-07-12 18:47] LABS: Basophils % (Auto) 0.3 % (0.0-1.8); Eosinophils # (Auto) 0.3 K/mm3 (0.0-0.4); Eosinophils % (Auto) 4.3 % (0.0-4.3); Hematocrit 35.3 % (30.3-42.9); Hemoglobin 11.6 gm/dl (10.1-14.3); Lymphocytes # (Auto) 0.8 K/mm3 (1.2-5.4); Lymphocytes % (Auto) 11.4 % (13.4-35.0); Mean Corpuscular HGB Conc 33 % (30-34); Mean Corpuscular Volume 99 fl (79-97); Monocytes # (Auto) 0.5 K/mm3 (0.0-0.8); Monocytes % (Auto) 6.9 % (0.0-7.3); Platelet Count 238 K/mm3 (140-440); Red Blood Count 3.57 M/mm3 (3.65-5.03); Red Cell Distribution Width 14.3 % (13.2-15.2)
[2020-07-12 18:55] LABS: INR 1.06 (0.87-1.13)
[2020-07-12 18:56] LABS: Partial Thromboplastin Time 34.2 Sec. (24.2-36.6)
[2020-07-12 19:09] LABS: Alanine Aminotransferase 17 units/L (7-56); Albumin 3.8 g/dL (3.9-5); Blood Urea Nitrogen 14 mg/dL (7-17); Calcium 8.9 mg/dL (8.4-10.2); Hemolysis Index 2
[2020-07-12 19:23] LABS: BUN/Creatinine Ratio 28
[2020-07-12 19:51] LABS: Bilirubin,Urine NEG (Negative); Blood,Urine NEG (Negative); Color,Urine Yellow (Yellow); Mucus,Urine 3+ /HPF; Urobilinogen,Urine < 2.0 mg/dL (<2.0)
--- NOTE | 2020-07-12 20:29 | XRay Report ---
CHEST PA AND LATERAL VIEWS INDICATION: chest pain. COMPARISON: None. FINDINGS: Support devices: None. Heart: Within normal limits. Lungs/Pleura: No acute pulmonary or pleural findings. IMPRESSION: 1. No acute findings. Signer Name: Rubén Walker MD Signed: 07/12/2020 8:24 PM Workstation Name: [id number]
--- NOTE | 2020-07-12 21:10 | Emergency Department Report ---
ED Chest Pain HPI - General Chief Complaint: Nausea/Vomiting/Diarrhea Stated Complaint: CHEST PAIN/abdominal pain/vomiting blood PUI?: No Time Seen by Provider: 07/12/20 18:06 Source: patient, EMS Mode of arrival: Wheelchair Limitations: No Limitations - History of Present Illness Initial Comments: Patient is a 34-year-old female that presents emergency room with complaints of chest pain, epigastric pain, nausea, vomiting and vomiting blood. Patient states her symptoms started 3 days ago. Patient states her symptoms are wo rsening. Patient states her epigastric abdominal pain is a 10 out of 10. Patient states that her abdominal pain is severe and is a stabbing sensation. Patient states that her epigastric pain is radiating to her chest. Patient states that she has been vomiting blood every time she vomits. Patient states now she is seeing clots in her vomitus. Patient states she is not sure if she has melena. Patient denies fever and chills. Patient denies shortness of breath. Patient denies diaphoresis. Patient denies recent travel. Patient denies recent international travel. Patient denies exposure to the novel coronavirus. Patient denies sick contacts. Patient denies fever and chills. Patient denies cough. Patient denies diarrhea. Patient denies coming in contact with anybody with symptoms of the novel coronavirus. MD Complaint: chest pain, other (Abdominal pain) -: Sudden Onset: during rest Pain Location: substernal, epigastric Severity: severe Severity scale (0 -10): 10 Quality: sharp Consistency: constant Improves With: rest Worsens With: palpation, movement, other (Vomiting) Context: recent illness re: nausea, vomting. denies: diaphoresis, dyspnea, sense of impending doom Other Symptoms: burping. denies: cough, fever, syncope, rash, acid taste in mouth, leg swelling, palpitations Treatments Prior to Arrival: none Aspirin use within the Past 7 Days: (0) No - Related Data On Oral Contraceptives: No Home Medications Medication Instructions Recorded Confirmed Last Taken AtorvaSTATin [Lipitor] 20 mg PO QHS 05/08/20 05/08/20 05/07/20 Cholecalciferol (Vitamin D3) 5,000 unit PO DAILY 05/08/20 05/08/20 05/08/20 [Vitamin D3] Iron [Iron 18 MG TAB] 18 mg PO QDAY 05/08/20 05/08/20 05/08/20 Levothyroxine Sodium [Synthroid] 175 mcg PO QAM 05/08/20 05/08/20 05/07/20 hydroCHLOROthiazide 50 mg PO DAILY 05/08/20 05/08/20 05/08/20 [Hydrochlorothiazide] Previous Rx's Medication Instructions Recorded Last Taken Type Insulin Glargine [Lantus VIAL] 5 units SUB-Q QHS #1 pen 06/06/19 05/07/20 Rx metFORMIN [Glucophage] 500 mg PO BIDDIAB tablet 06/06/19 05/08/20 Rx AtorvaSTATin [Lipitor] 40 mg PO QHS #30 tablet 05/10/20 Unknown Rx Clopidogrel [Plavix] 75 mg PO QDAY #30 tablet 05/10/20 Unknown Rx levETIRAcetam [Keppra TAB] 1,000 mg PO BID #60 tablet 05/10/20 Unknown Rx Allergies Allergy/AdvReac Type Severity Reaction Status Date / Time amoxicillin Allergy Unknown Verified 06/01/19 15:04 aspirin Allergy Hives Verified 06/04/19 23:20 sulfamethoxazole Allergy Unknown Verified 06/01/19 15:04 [From Bactrim] tramadol Allergy Unknown Verified 06/01/19 15:04 trimethoprim [From Bactrim] Allergy Unknown Verified 06/01/19 15:04 Heart Score - HEART Score History: Slightly suspicious EKG: Non-specific Age: < 45 Risk factors: > 3 risk factors or hx of atherosclerotic disease Troponin: < normal limit HEART Score: 3 ED Review of Systems ROS: Stated complaint: CHEST PAIN/EYE PAIN/TINGLING IN FACE Other details as noted in HPI Constitutional: denies: chills, fever Eyes: denies: eye pain, eye discharge, vision change ENT: denies: ear pain, throat pain Respiratory: denies: cough, shortness of breath, wheezing Cardiovascular: chest pain. denies: palpitations Endocrine: no symptoms reported Gastrointestinal: abdominal pain, nausea, vomiting, hematemesis. denies: diarrhea Genitourinary: denies: urgency, dysuria, discharge Musculoskeletal: denies: back pain, joint swelling, arthralgia Skin: denies: rash, lesions Neurological: denies: headache, weakness, paresthesias Psychiatric: denies: anxiety, depression Hematological/Lymphatic: denies: easy bleeding, easy bruising ED Past Medical Hx - Past Medical History Previous Medical History?: Yes Hx Hypertension: Yes Hx Congestive Heart Failure: No Hx Diabetes: Yes Hx Seizures: Yes Hx Asthma: Yes Hx COPD: No Additional medical history: hypothyroid,anemia. elevated liver enzymes - Surgical History Past Surgical History?: Yes Hx Cholecystectomy: Yes Hx Appendectomy: Yes Additional Surgical History: 3 c-sections, 1 breast biopsy, 1 liver biposy - Family History Family history: no significant - Social History Smoking Status: Never Smoker Substance Use Type: None - Medications Home Medications: Home Medications Medication Instructions Recorded Confirmed Last Taken Type Insulin Glargine [Lantus VIAL] 5 units SUB-Q QHS #1 pen 06/06/19 05/08/20 05/07/20 Rx metFORMIN [Glucophage] 500 mg PO BIDDIAB tablet 06/06/19 05/08/20 05/08/20 Rx AtorvaSTATin [Lipitor] 20 mg PO QHS 05/08/20 05/08/20 05/07/20 History Cholecalciferol (Vitamin D3) 5,000 unit PO DAILY 05/08/20 05/08/20 05/08/20 History [Vitamin D3] Iron [Iron 18 MG TAB] 18 mg PO QDAY 05/08/20 05/08/20 05/08/20 History Levothyroxine Sodium [Synthroid] 175 mcg PO QAM 05/08/20 05/08/20 05/07/20 History hydroCHLOROthiazide 50 mg PO DAILY 05/08/20 05/08/20 05/08/20 History [Hydrochlorothiazide] AtorvaSTATin [Lipitor] 40 mg PO QHS #30 tablet 05/10/20 Unknown Rx Clopidogrel [Plavix] 75 mg PO QDAY #30 tablet 05/10/20 Unknown Rx levETIRAcetam [Keppra TAB] 1,000 mg PO BID #60 tablet 05/10/20 Unknown Rx ED Physical Exam - General Limitations: No Limitations General appearance: alert, in no apparent distress - Head Head exam: Present: atraumatic, normocephalic - Eye Eye exam: Present: normal appearance - ENT ENT exam: Present: mucous membranes moist - Neck Neck exam: Present: normal inspection - Respiratory Respiratory exam: Present: normal lung sounds bilaterally, chest wall tenderness (Palpation epigastrium and the sternum reproduces symptoms.). Absent: respiratory distress - Cardiovascular Cardiovascular Exam: Present: regular rate, normal rhythm. Absent: systolic murmur, diastolic murmur, rubs, gallop - GI/Abdominal GI/Abdominal exam: Present: soft, tenderness (Severe epigastric tenderness to palpation.), normal bowel sounds - Rectal Rectal exam: Present: normal inspection, normal rectal tone, heme (+) stool, black stool - Extremities Exam Extremities exam: Present: normal inspection - Back Exam Back exam: Present: normal inspection - Neurological Exam Neurological exam: Present: alert, oriented X3 - Psychiatric Psychiatric exam: Present: normal affect, normal mood - Skin Skin exam: Present: warm, dry, intact, normal color. Absent: rash ED Course Vital Signs 07/12/20 07/12/20 18:03 22:26 Temperature 98.2 F Pulse Rate 78 68 Respiratory 18 18 Rate Blood Pressure 113/80 Blood Pressure 101/63 [Left] O2 Sat by Pulse 100 100 Oximetry - Reevaluation(s) Reevaluation #1: Rectal exam done. Patient's Hemoccult positive for occult blood. Nurse Teodora at bedside during entire exam. 07/12/20 23:01 Reevaluation #2: I discussed all results with patient. I discussed plan of care with patient. Patient agrees with plan of care and admission. Patient to be admitted to the hospitalist service. 07/12/20 23:15 - Consultations Consultation #1: GI consulted 07/12/20 23:15 Consultation #2: Hospitalist consulted for admission. Hospitalist to admit patient. 07/12/20 23:18 BRADLY score - Bradly Score Age > 65: (0) No Aspirin use within the Past 7 Days: (0) No 3 or more CAD Risk Factors: (1) Yes 2 or more Angina events in past 24 hrs: (0) No Known CAD with more than 50% Stenosis: (0) No Elevated Cardiac Markers: (0) No ST Deviation Greater than 0.5mm: (0) No BRADLY Score: 1 ED Medical Decision Making - Lab Data Result diagrams: 07/12/20 18:30 07/12/20 18:30 - EKG Data -: EKG Interpreted by Me EKG shows normal: sinus rhythm, axis, intervals, QRS complexes, ST-T waves Rate: normal - Radiology Data Radiology results: report reviewed, image reviewed interpreted by me: Chest x-ray: No pneumonia, no pneumothorax, no foreign body, no osseous findings, no acute findings CHEST PA AND LATERAL VIEWS INDICATION: chest pain. COMPARISON: None. FINDINGS: Support devices: None. Heart: Within normal limits. Lungs/Pleura: No acute pulmonary or pleural findings. IMPRESSION: 1. No acute findings. CT ABDOMEN AND PELVIS WITH IV CONTRAST INDICATION: abd pain. n/v. blood in vomit/. COMPARISON: CT 03/12/2019. TECHNIQUE: All CT scans at this facility use dose modulation, automated exposure control, iterative reconstruction or weight based dosing, when appropriate, to reduce radiation dose to as low as reasonably achievable. FINDINGS: Lung Bases: No significant abnormality. Skeletal System: No acute abnormality. ABDOMEN: Liver: No significant abnormality. Gallbladder: Removed. Bile Ducts: No significant abnormality. Pancreas: No significant abnormality. Spleen: No significant abnormality. Adrenals: No significant abnormality. Right Kidney: No significant abnormality. Left Kidney: Calyceal diverticulum versus cyst with dependent calcification in the medial left kidney is unchanged. Upper GI tract: Partial bowel rotation is again incidentally noted with small bowel in the right and: On the left. Lymph Nodes: No significant adenopathy. Aorta: No significant abnormality. Additional Findings: Left-sided infrarenal IVC is noted. PELVIS: Colon: No acute abnormality. Urinary Bladder and Distal Ureters: No significant abnormality. Appendix: Not visualized. Lymph Nodes: No significant adenopathy. Additional Findings: None. IMPRESSION: 1. No acute process in the abdomen or pelvis. 2. Incidental findings, as above. - Medical Decision Making Patient is a 34-year-old female who presents emergency room with complaints of chest pain and epigastric pain. Patient's chest pain was substernal. Patient's symptoms started 3 days ago and worsened. Patient also complained of vomiting blood. Patient had labs done which were essentially unremarkable. Patient had a CT scan which was negative for acute findings. Patient on exam found to have positive Hemoccult. Patient admitted to the hospitalist service for further evaluation and treatment and rule out ACS. GI was consulted for the hematemesis and positive Hemoccult. - Differential Diagnosis Abdominal pain, chest pain, ACS, GI bleed, vomiting blood,N/V. Critical Care Time: Yes Critical care time in (mins) excluding proc time.: 35 Critical care attestation.: If time is entered above; I have spent that time in minutes in the direct care of this critically ill patient, excluding procedure time. Critical Care Time: 35 MINUTES ED Disposition Clinical Impression: Epigastric pain, Melena Chest pain Qualifiers: Chest pain type: unspecified Qualified Code(s): R07.9 - Chest pain, unspecified Hematemesis Qualifiers: Nausea presence: with nausea Qualified Code(s): K92.0 - Hematemesis Nausea & vomiting Qualifiers: Vomiting type: unspecified Vomiting Intractability: non-intractable Qualified Code(s): R11.2 - Nausea with vomiting, unspecified Disposition: DC-09 OP ADMIT IP TO THIS HOSP Is pt being admited?: Yes Does the pt Need Aspirin: No Condition: Critical Instructions: Chest Pain (ED) Time of Disposition: 23:20
[2020-07-12] MEDS ORDERED: SODIUM CHLORIDE 0.9% 1000 ML 1,000 ML IV ONE (21:18)
[2020-07-12] MEDS ORDERED: HYDROmorphone 1 MG/1 ML INJ IV ONE ×2 (21:18→23:15)
[2020-07-12] MEDS ORDERED: ONDANSETRON 4 MG/2 ML INJ IV ONE (21:18)
--- NOTE | 2020-07-12 22:28 | Cat Scan Report ---
CT ABDOMEN AND PELVIS WITH IV CONTRAST INDICATION: abd pain. n/v. blood in vomit/. COMPARISON: CT 03/12/2019. TECHNIQUE: All CT scans at this facility use dose modulation, automated exposure control, iterative reconstructi on or weight based dosing, when appropriate, to reduce radiation dose to as low as reasonably achieva ble. FINDINGS: Lung Bases: No significant abnormality. Skeletal System: No acute abnormality. ABDOMEN: Liver: No significant abnormality. Gallbladder: Removed. Bile Ducts: No significant abnormality. Pancreas: No significant abnormality. Spleen: No significant abnormality. Adrenals: No significant abnormality. Right Kidney: No significant abnormality. Left Kidney: Calyceal diverticulum versus cyst with dependent calcification in the medial left kidney is unchanged. Upper GI tract: Partial bowel rotation is again incidentally noted with small bowel in the right and: On the left. Lymph Nodes: No significant adenopathy. Aorta: No significant abnormality. Additional Findings: Left-sided infrarenal IVC is noted. PELVIS: Colon: No acute abnormality. Urinary Bladder and Distal Ureters: No significant abnormality. Appendix: Not visualized. Lymph Nodes: No significant adenopathy. Additional Findings: None. IMPRESSION: 1. No acute process in the abdomen or pelvis. 2. Incidental findings, as above. Signer Name: Rubén Walker MD Signed: 07/12/2020 10:24 PM Workstation Name: [id number]
[2020-07-12] MEDS ORDERED: PANTOPRAZOLE 40 MG INJ IV ONE (23:45)
[2020-07-13] MEDS ORDERED: MORPHINE 4 MG/1 ML INJ IV PRN (00:01)
[2020-07-13] MEDS ORDERED: DEXTROSE 50% IN WATER (25GM) 50 ML SYRINGE IV PRN (00:01)
[2020-07-13] MEDS ORDERED: NITROGLYCERIN 0.4 MG TAB SUBL SL PRN (00:01)
[2020-07-13] MEDS ORDERED: ONDANSETRON 4 MG/2 ML INJ IV PRN (00:01)
[2020-07-13] MEDS ORDERED: ACETAMINOPHEN 325 MG TAB PO PRN ×2 (00:01)
--- NOTE | 2020-07-13 00:20 | History and Physical Report ---
History of Present Illness Date of examination: 07/12/20 Date of admission: 07/12/20 23:19 Chief complaint: Chest Pain Hematemesis History of present illness: 34-year-old female with known history of pretension, diabetes mellitus, history of seizure disorder and asthma presenting to the emergency room today complaining of chest pain, abdominal pain, nausea and vomiting. Abdominal pain is said to be epigastric and radiating towards her chest. On a scale of 10 pain was said 10/10 in severity, no no relieving or exacerbating factor. Patient indicates that she has also been vomiting blood on and off over the past few days. She has also occasionally seen blood in her stool.. She denies any use of nonsteroidal anti-inflammatory medication. She denies any fever or chills, no headache or dizziness. No diaphoresis. She denies any sick contacts and no recent travel. Denies any contact with anyone with COVID-19. Work-up in the emergency room today, EKG, chest x-ray, troponin were within normal limits. She was however Hemoccult positive. Patient admitted with chest pain, GI bleed. Past History Past Medical History: diabetes, hypertension, hypothyroidism, seizures, other (Asthma,Elevated liver enzymes) Past Surgical History: appendectomy, cholecystectomy, , Other (Liver biopsy, Breast Biopsy) Social history: no significant social history Family history: no significant family history Medications and Allergies Allergies Allergy/AdvReac Type Severity Reaction Status Date / Time amoxicillin Allergy Unknown Verified 06/01/19 15:04 aspirin Allergy Hives Verified 06/04/19 23:20 sulfamethoxazole Allergy Unknown Verified 06/01/19 15:04 [From Bactrim] tramadol Allergy Unknown Verified 06/01/19 15:04 trimethoprim [From Bactrim] Allergy Unknown Verified 06/01/19 15:04 Home Medications Medication Instructions Recorded Confirmed Last Taken Type Insulin Glargine [Lantus VIAL] 5 units SUB-Q QHS #1 pen 06/06/19 05/08/20 Rx metFORMIN [Glucophage] 500 mg PO BIDDIAB tablet 06/06/19 05/08/20 05/08/20 Rx AtorvaSTATin [Lipitor] 20 mg PO QHS 05/08/20 05/08/20 05/07/20 History Cholecalciferol (Vitamin D3) 5,000 unit PO DAILY 05/08/20 05/08/20 05/08/20 History [Vitamin D3] Iron [Iron 18 MG TAB] 18 mg PO QDAY 05/08/20 05/08/20 05/08/20 History Levothyroxine Sodium [Synthroid] 175 mcg PO QAM 05/08/20 05/08/20 05/07/20 History hydroCHLOROthiazide 50 mg PO DAILY 05/08/20 05/08/20 05/08/20 History [Hydrochlorothiazide] AtorvaSTATin [Lipitor] 40 mg PO QHS #30 tablet 05/10/20 Unknown Rx Clopidogrel [Plavix] 75 mg PO QDAY #30 tablet 05/10/20 Unknown Rx levETIRAcetam [Keppra TAB] 1,000 mg PO BID #60 tablet 05/10/20 Unknown Rx Active Meds: Active Medications Acetaminophen (Acetaminophen 325 Mg Tab) 650 mg PO Q4H PRN PRN Reason: Pain MILD(1-3)/Fever >100.5/WINK[place]ER Acetaminophen (Acetaminophen 325 Mg Tab) 650 mg PO Q6H PRN PRN Reason: Pain, Mild (1-3) Dextrose (Dextrose 50% In Water (25gm) 50 Ml Syringe) 50 ml IV Q30MIN PRN; Protocol PRN Reason: Hypoglycemia Dextrose (Dextrose 50% In Water (25gm) 50 Ml Syringe) 50 ml IV Q30MIN PRN; Protocol PRN Reason: Hypoglycemia Sodium Chloride (Nacl 0.9% 1000 Ml) 1,000 mls @ 75 mls/hr IV DIRECT AMADOU Insulin Human Lispro (Insulin Lispro 100 Unit/Ml) 0 unit SUB-Q ACHS AMADOU; Protocol Morphine Sulfate (Morphine 2 Mg/1 Ml Inj) 2 mg IV Q4H PRN PRN Reason: Pain, Moderate (4-6) Morphine Sulfate (Morphine 4 Mg/1 Ml Inj) 2 mg IV Q5MIN PRN PRN Reason: Chest Pain Nitroglycerin (Nitroglycerin 0.4 Mg Tab Subl) 0.4 mg SL Q5M PRN PRN Reason: Chest Pain Ondansetron HCl (Ondansetron 4 Mg/2 Ml Inj) 4 mg IV Q8H PRN PRN Reason: Nausea And Vomiting Sodium Chloride (Sodium Chloride 0.9% 10 Ml Flush Syringe) 10 ml IV BID AMADOU Sodium Chloride (Sodium Chloride 0.9% 10 Ml Flush Syringe) 10 ml IV PRN PRN PRN Reason: LINE FLUSH Sodium Chloride (Sodium Chloride 0.9% 10 Ml Flush Syringe) 10 ml IV PRN PRN PRN Reason: LINE FLUSH Review of Systems Constitutional: no fever, no chills Ears, nose, mouth and throat: no nasal congestion, no sore throat Cardiovascular: chest pain, no palpitations Respiratory: no cough, no shortness of breath Gastrointestinal: abdominal pain, nausea, vomiting, hematemesis, melena, no diarrhea, no constipation Genitourinary Female: no flank pain, no dysuria, no hematuria Musculoskeletal: no neck pain, no low back pain Integumentary: no rash, no pruritis Neurological: no headaches, no confusion Psychiatric: no anxiety, no depression Exam - Constitutional Vitals: Temp Pulse Resp BP Pulse Ox 98.2 F 68 18 101/63 100 07/12/20 18:03 07/12/20 22:26 07/12/20 22:26 07/12/20 22:26 07/12/20 22:26 General appearance: Present: no acute distress, well-nourished, obese - EENT Eyes: Present: PERRL, EOM intact. Absent: scleral icterus ENT: hearing intact, clear oral mucosa, dentition normal - Neck Neck: Present: supple, normal ROM - Respiratory Respiratory effort: normal Respiratory: bilateral: CTA - Cardiovascular Rhythm: regular Heart Sounds: Present: S1 & S2. Absent: gallop, systolic murmur, diastolic murmur, rub, click - Extremities Extremities: no ischemia, pulses intact, pulses symmetrical, No edema, normal temperature, normal color, Full ROM Peripheral Pulses: within normal limits - Abdominal General gastrointestinal: Present: soft, non-tender, non-distended, normal bowel sounds. Absent: mass - Integumentary Integumentary: Present: clear, warm, dry - Musculoskeletal Musculoskeletal: strength equal bilaterally - Psychiatric Psychiatric: appropriate mood/affect, intact judgment & insight, memory intact, cooperative - Neurologic Neurologic: CNII-XII intact, no focal deficits, moves all extremities HEART Score - HEART Score EKG: Non-specific Age: < 45 Risk factors: > 3 risk factors or hx of atherosclerotic disease Troponin: Troponin T < 0.010 ng/mL (0.00-0.029) 07/12/20 18:30 Troponin: < normal limit Results - Labs CBC & Chem 7: 07/12/20 18:30 07/12/20 18:30 Labs: Abnormal lab results 07/12/20 07/12/20 Range/Units 18:30 18:30 RBC 3.57 L (3.65-5.03) M/mm3 MCV 99 H (79-97) fl MCH 33 H (28-32) pg Lymph % (Auto) 11.4 L (13.4-35.0) % Lymph # (Auto) 0.8 L (1.2-5.4) K/mm3 Seg Neutrophils % 77.1 H (40.0-70.0) % Creatinine 0.5 L (0.6-1.2) mg/dL Albumin 3.8 L (3.9-5) g/dL Assessment and Plan - Patient Problems (1) Chest pain Current Visit: Yes Status: Acute Qualifiers: Chest pain type: unspecified Qualified Code(s): R07.9 - Chest pain, unspecified Plan to address problem: Will follow up on serial cardiac enzymes. PRN sublingual nitroglycerin and IV morphine as needed . Will request cardiology follow up. (2) Hematemesis Current Visit: Yes Status: Acute Qualifiers: Nausea presence: with nausea Qualified Code(s): K92.0 - Hematemesis Plan to address problem: Will make NPO Started on PPI GI consult requested. (3) DVT prophylaxis Current Visit: No Status: Acute Plan to address problem: Patient placed on Sequential compression device. (4) Full code status Current Visit: Yes Status: Acute Plan to address problem: Patient is Full code.
[2020-07-13] MEDS: SODIUM CHLORIDE 0.9% 1000 ML 1,000 ML IV SCH ×2 (02:01→16:06)
[2020-07-13] MEDS: MORPHINE 2 MG/1 ML INJ IV PRN ×5 (02:14→21:17)
[2020-07-13] MEDS: INSULIN LISPRO 100 UNIT/ML SUB-Q SCH ×4 (08:00→22:00)
[2020-07-13] MEDS ORDERED: hydrALAZINE 20 MG/1 ML INJ IV PRN (09:14)
[2020-07-13] MEDS ORDERED: hydroCHLOROthiazide 25 MG TAB PO SCH (10:00)
--- NOTE | 2020-07-13 10:07 | Progress Note ---
Assessment and Plan Assessment and plan: 34-year-old female with known history of pretension, diabetes mellitus, history of seizure disorder and asthma presenting to the emergency room today complaining of chest pain, abdominal pain, nausea and vomiting. Abdominal pain is said to be epigastric and radiating towards her chest. On a scale of 10 pain was said 10/10 in severity, no no relieving or exacerbating factor. Patient indicates that she has also been vomiting blood on and off over the past few days. She has also occasionally seen blood in her stool.. She denies any use of nonsteroidal anti-inflammatory medication. She denies any fever or chills, no headache or dizziness. No diaphoresis. She denies any sick contacts and no recent travel. Denies any contact with anyone with COVID-19. Work-up in the emergency room today, EKG, chest x-ray, troponin were within normal limits. She was however Hemoccult positive. Assessment and Plan - Patient Problems (1) Chest pain Current Visit: Yes Status: Acute Qualifiers: Chest pain type: unspecified Qualified Code(s): R07.9 - Chest pain, unspecified Plan to address problem: Will follow up on serial cardiac enzymes. PRN sublingual nitroglycerin and IV morphine as needed . Will request cardiology follow up. (2) Hematemesis Current Visit: Yes Status: Acute Qualifiers: Nausea presence: with nausea Qualified Code(s): K92.0 - Hematemesis Plan to address problem: Will make NPO Started on PPI GI consult requested. (3) DVT prophylaxis Current Visit: No Status: Acute Plan to address problem: Patient placed on Sequential compression device. (4) Full code status Current Visit: Yes Status: Acute Plan to address problem: Patient is Full code. Hospital course 07/13/20 Patient is seen and examined. Labs and medication reviewed. Patient denied any more GI bleeding, no hematemesis. Complained of pain in the esophageal area. Hemoglobin is 11.6 hematocrit 35.3. Patient is on Protonix 40 mg IV daily nitroglycerin and morphine. GI will see the patient and possible endoscopy in the morning. We also check the serial cardiac enzyme and cardiology evaluation requested. CBC in the morning History Interval history: 07/13/20 Patient is seen and examined. Labs and medication reviewed. Patient denied any more GI bleeding, no hematemesis. Complained of pain in the esophageal area. Hemoglobin is 11.6 hematocrit 35.3. Patient is on Protonix 40 mg IV daily nitroglycerin and morphine. GI will see the patient and possible endoscopy in the morning. We also check the serial cardiac enzyme and cardiology evaluation requested Hospitalist Physical - Constitutional Vitals: Temp Pulse Resp BP Pulse Ox 98.2 F 82 18 121/101 93 07/13/20 08:17 07/13/20 08:17 07/13/20 08:17 07/13/20 08:17 07/13/20 08:17 General appearance: Present: no acute distress, well-nourished, obese - EENT Eyes: Present: PERRL ENT: hearing intact - Neck Neck: Present: supple, normal ROM, rigidity - Respiratory Respiratory effort: normal Respiratory: bilateral: diminished - Cardiovascular Rhythm: regular Heart Sounds: Present: S1 & S2 - Extremities Extremities: no ischemia, pulses intact, No edema Peripheral Pulses: within normal limits - Abdominal General gastrointestinal: soft, non-tender, normal bowel sounds - Integumentary Integumentary: Present: clear, warm, dry - Psychiatric Psychiatric: appropriate mood/affect, intact judgment & insight, cooperative - Neurologic Neurologic: CNII-XII intact, moves all extremities HEART Score - HEART Score EKG: Non-specific Age: < 45 Risk factors: > 3 risk factors or hx of atherosclerotic disease Troponin: Troponin T < 0.010 ng/mL (0.00-0.029) 07/13/20 05:53 Troponin: < normal limit Results - Labs CBC & Chem 7: 07/12/20 18:30 07/12/20 18:30 Labs: Laboratory Last Values WBC 7.3 K/mm3 (4.5-11.0) 07/12/20 18:30 RBC 3.57 M/mm3 (3.65-5.03) L 07/12/20 18:30 Hgb 11.6 gm/dl (10.1-14.3) 07/12/20 18:30 Hct 35.3 % (30.3-42.9) 07/12/20 18:30 MCV 99 fl (79-97) H 07/12/20 18:30 MCH 33 pg (28-32) H 07/12/20 18:30 MCHC 33 % (30-34) 07/12/20 18:30 RDW 14.3 % (13.2-15.2) 07/12/20 18:30 Plt Count 238 K/mm3 (140-440) 07/12/20 18:30 Lymph % (Auto) 11.4 % (13.4-35.0) L 07/12/20 18:30 Placer % (Auto) 6.9 % (0.0-7.3) 07/12/20 18:30 Eos % (Auto) 4.3 % (0.0-4.3) 07/12/20 18:30 Baso % (Auto) 0.3 % (0.0-1.8) 07/12/20 18:30 Lymph # (Auto) 0.8 K/mm3 (1.2-5.4) L 07/12/20 18:30 Placer # (Auto) 0.5 K/mm3 (0.0-0.8) 07/12/20 18:30 Eos # (Auto) 0.3 K/mm3 (0.0-0.4) 07/12/20 18:30 Baso # (Auto) 0.0 K/mm3 (0.0-0.1) 07/12/20 18:30 Seg Neutrophils % 77.1 % (40.0-70.0) H 07/12/20 18:30 Seg Neutrophils # 5.6 K/mm3 (1.8-7.7) 07/12/20 18:30 PT 13.7 Sec. (12.2-14.9) 07/12/20 18:30 INR 1.06 (0.87-1.13) 07/12/20 18:30 APTT 34.2 Sec. (24.2-36.6) 07/12/20 18:30 Sodium 139 mmol/L (137-145) 07/12/20 18:30 Potassium 3.8 mmol/L (3.6-5.0) 07/12/20 18:30 Chloride 104.1 mmol/L (98-107) 07/12/20 18:30 Carbon Dioxide 30 mmol/L (22-30) 07/12/20 18:30 Anion Gap 9 mmol/L 07/12/20 18:30 BUN 14 mg/dL (7-17) 07/12/20 18:30 Creatinine 0.5 mg/dL (0.6-1.2) L 07/12/20 18:30 Estimated GFR > 60 ml/min 07/12/20 18:30 BUN/Creatinine Ratio 28 % 07/12/20 18:30 Glucose 81 mg/dL (65-100) 07/12/20 18:30 POC Glucose 92 mg/dL (70-105) 07/13/20 08:15 Calcium 8.9 mg/dL (8.4-10.2) 07/12/20 18:30 Total Bilirubin < 0.20 mg/dL (0.1-1.2) 07/12/20 18:30 AST 13 units/L (5-40) 07/12/20 18:30 ALT 17 units/L (7-56) 07/12/20 18:30 Alkaline Phosphatase 93 units/L (35-129) 07/12/20 18:30 Troponin T < 0.010 ng/mL (0.00-0.029) 07/13/20 05:53 Total Protein 7.1 g/dL (6.3-8.2) 07/12/20 18:30 Albumin 3.8 g/dL (3.9-5) L 07/12/20 18:30 Albumin/Globulin Ratio 1.2 % 07/12/20 18:30 Lipase 18 units/L (13-60) 07/12/20 18:30 HCG, Qual Negative (Negative) 07/12/20 18:30 Urine Color Yellow (Yellow) 07/12/20 Unknown Urine Turbidity Slightly-cloudy (Clear) 07/12/20 Unknown Urine pH 6.0 (5.0-7.0) 07/12/20 Unknown Ur Specific [place] 1.027 (1.003-1.030) 07/12/20 Unknown Urine Protein 30 mg/dl mg/dL (Negative) 07/12/20 Unknown Urine Glucose (UA) Neg mg/dL (Negative) 07/12/20 Unknown Urine Ketones Neg mg/dL (Negative) 07/12/20 Unknown Urine Blood Neg (Negative) 07/12/20 Unknown Urine Nitrite Neg (Negative) 07/12/20 Unknown Urine Bilirubin Neg (Negative) 07/12/20 Unknown Urine Urobilinogen < 2.0 mg/dL (<2.0) 07/12/20 Unknown Ur Leukocyte Esterase Neg (Negative) 07/12/20 Unknown Urine WBC (Auto) 2.0 /HPF (0.0-6.0) 07/12/20 Unknown Urine RBC (Auto) 1.0 /HPF (0.0-6.0) 07/12/20 Unknown U Epithel Cells (Auto) 6.0 /HPF (0-13.0) 07/12/20 Unknown Urine Mucus 3+ /HPF 07/12/20 Unknown Lion/IV: Voiding Method Toilet Active Medications - Current Medications Current Medications: Generic Name Dose Route Start Last Admin Trade Name Freq PRN Reason Stop Dose Admin Acetaminophen 650 mg 07/13/20 00:01 Acetaminophen 325 Mg Tab PO Q4H PRN Pain MILD(1-3)/Fever >100.5/WINKLER Dextrose 50 ml 07/13/20 00:01 Dextrose 50% In Water (25gm) 50 Ml Syringe IV Q30MIN PRN Hypoglycemia Protocol Hydralazine HCl 10 mg 07/13/20 09:14 Hydralazine 20 Mg/1 Ml Inj IV Q6H PRN elevated blood pressure Hydrochlorothiazide 50 mg 07/13/20 10:00 Hydrochlorothiazide 25 Mg Tab PO QDAY [facility] Sodium Chloride 1,000 mls @ 75 mls/hr 07/13/20 00:15 07/13/20 02:01 Nacl 0.9% 1000 Ml IV 75 mls/hr DIRECT AMADOU Administration Insulin Human Lispro 0 unit 07/13/20 07:30 07/13/20 08:00 Insulin Lispro 100 Unit/Ml SUB-Q Not Given ACHS [facility] Protocol Morphine Sulfate 2 mg 07/13/20 00:01 07/13/20 06:55 Morphine 2 Mg/1 Ml Inj IV 2 mg Q4H PRN Administration Pain, Moderate (4-6) Morphine Sulfate 2 mg 07/13/20 00:01 Morphine 4 Mg/1 Ml Inj IV Q5MIN PRN Chest Pain Nitroglycerin 0.4 mg 07/13/20 00:01 Nitroglycerin 0.4 Mg Tab Subl SL Q5M PRN Chest Pain Ondansetron HCl 4 mg 07/13/20 00:01 07/13/20 02:00 Ondansetron 4 Mg/2 Ml Inj IV 4 mg Q8H PRN Administration Nausea And Vomiting Sodium Chloride 10 ml 07/13/20 10:00 Sodium Chloride 0.9% 10 Ml Flush Syringe IV BID AMADOU Sodium Chloride 10 ml 07/13/20 00:01 Sodium Chloride 0.9% 10 Ml Flush Syringe IV PRN PRN LINE FLUSH Nutrition/Malnutrition Assess - Malnutrition Assessment Minimum of two criteria: No - Attestation Statement I have reviewed and agreed w/ Malnutrition eval & tx plan: Yes
--- NOTE | 2020-07-13 11:37 | Consultation ---
History of Present Illness Consult date: 07/13/20 Requesting physician: GAYLA OGDEN Consult reason: chest pain History of present illness: 34-year-old female with multiple medical problems including borderline hypertension, diabetes, seizure disorder, and asthma presents to [facility] emergency department stating that 3 days ago she developed chest pain that she describes is worse when she breathes and associated with radiation to her back. Additionally the patient has been complaining of abdominal pain associated with nausea vomiting and hematemesis. She is Hemoccult positive. A CT of the abdomen and pelvis was negative for any acute findings. The patient has negative cardiac enzymes x2. A twelve-lead EKG in the emergency department reveals normal sinus rhythm with no acute ST segment changes. Past History Past Medical History: diabetes, hypertension, hypothyroidism, seizures, other (Asthma,Elevated liver enzymes) Past Surgical History: appendectomy, cholecystectomy, , Other (Liver biopsy, Breast Biopsy) Social history: no significant social history Family history: no significant family history Medications and Allergies Allergies Allergy/AdvReac Type Severity Reaction Status Date / Time amoxicillin Allergy Unknown Verified 06/01/19 15:04 aspirin Allergy Hives Verified 06/04/19 23:20 carrot Allergy Hives Verified 07/13/20 10:06 coconut Allergy Hives Verified 07/13/20 10:06 sulfamethoxazole Allergy Unknown Verified 06/01/19 15:04 [From Bactrim] tramadol Allergy Unknown Verified 06/01/19 15:04 trimethoprim [From Bactrim] Allergy Unknown Verified 06/01/19 15:04 oatmeal Allergy Hives Uncoded 07/13/20 10:06 Home Medications Medication Instructions Recorded Confirmed Last Taken Type Insulin Glargine [Lantus VIAL] 5 units SUB-Q QHS #1 pen 06/06/19 07/13/20 05/07/20 Rx metFORMIN [Glucophage] 500 mg PO BIDDIAB tablet 06/06/19 07/13/20 05/08/20 Rx AtorvaSTATin [Lipitor] 20 mg PO QHS 05/08/20 07/13/20 05/07/20 History Cholecalciferol (Vitamin D3) 5,000 unit PO DAILY 05/08/20 07/13/20 05/08/20 History [Vitamin D3] Iron [Iron 18 MG TAB] 18 mg PO QDAY 05/08/20 07/13/2020 History Levothyroxine Sodium [Synthroid] 175 mcg PO QAM 05/08/20 07/13/20 05/07/20 History hydroCHLOROthiazide 50 mg PO DAILY 05/08/20 07/13/20 05/08/20 History [Hydrochlorothiazide] AtorvaSTATin [Lipitor] 40 mg PO QHS #30 tablet 05/10/20 07/13/20 Unknown Rx Clopidogrel [Plavix] 75 mg PO QDAY #30 tablet 05/10/20 07/13/20 Unknown Rx levETIRAcetam [Keppra TAB] 1,000 mg PO BID #60 tablet 05/10/20 07/13/20 Unknown Rx Active Meds: Active Medications Acetaminophen (Acetaminophen 325 Mg Tab) 650 mg PO Q4H PRN PRN Reason: Pain MILD(1-3)/Fever >100.5/WINKLER Dextrose (Dextrose 50% In Water (25gm) 50 Ml Syringe) 50 ml IV Q30MIN PRN; Protocol PRN Reason: Hypoglycemia Hydralazine HCl (Hydralazine 20 Mg/1 Ml Inj) 10 mg IV Q6H PRN PRN Reason: elevated blood pressure Hydrochlorothiazide (Hydrochlorothiazide 25 Mg Tab) 50 mg PO QDAY [facility] Last Admin: 07/13/20 11:11 Dose: 50 mg Documented by: Sodium Chloride (Nacl 0.9% 1000 Ml) 1,000 mls @ 75 mls/hr IV DIRECT AMADOU Last Admin: 07/13/20 02:01 Dose: 75 mls/hr Documented by: Insulin Human Lispro (Insulin Lispro 100 Unit/Ml) 0 unit SUB-Q ACHS [facility]; Protocol Last Admin: 07/13/20 08:00 Dose: Not Given Documented by: Morphine Sulfate (Morphine 2 Mg/1 Ml Inj) 2 mg IV Q4H PRN PRN Reason: Pain, Moderate (4-6) Last Admin: 07/13/20 11:11 Dose: 2 mg Documented by: Morphine Sulfate (Morphine 4 Mg/1 Ml Inj) 2 mg IV Q5MIN PRN PRN Reason: Chest Pain Nitroglycerin (Nitroglycerin 0.4 Mg Tab Subl) 0.4 mg SL Q5M PRN PRN Reason: Chest Pain Ondansetron HCl (Ondansetron 4 Mg/2 Ml Inj) 4 mg IV Q8H PRN PRN Reason: Nausea And Vomiting Last Admin: 07/13/20 02:00 Dose: 4 mg Documented by: Pantoprazole Sodium (Pantoprazole 40 Mg Inj) 40 mg IV BID [facility] Sodium Chloride (Sodium Chloride 0.9% 10 Ml Flush Syringe) 10 ml IV BID AMADOU Last Admin: 07/13/20 11:11 Dose: 10 ml Documented by: Sodium Chloride (Sodium Chloride 0.9% 10 Ml Flush Syringe) 10 ml IV PRN PRN PRN Reason: LINE FLUSH Review of Systems Constitutional: no fever, no chills, no sweats Ears, nose, mouth and throat: deferred Breasts: deferred Cardiovascular: chest pain, no palpitations, no edema, no syncope Respiratory: shortness of breath, no cough Gastrointestinal: hematemesis Musculoskeletal: no neck stiffness, no neck pain Integumentary: no rash, no pruritis Physical Examination Vital Signs Temp Pulse Resp BP Pulse Ox 98.2 F 78 18 113/80 100 07/12/20 18:03 07/12/20 18:03 07/12/20 18:03 07/12/20 18:03 07/12/20 18:03 General appearance: no acute distress HEENT: Positive: PERRL, EOMI Neck: Positive: neck supple, trachea midline Cardiac: Positive: Reg Rate and Rhythm Lungs: Positive: clear to auscultation, Normal Breath Sounds Neuro: Positive: Grossly Intact Abdomen: Positive: Soft, Active Bowel Sounds Skin: Positive: Clear. Negative: Rash Extremities: Present: warm. Absent: edema Results 07/12/20 18:30 07/12/20 18:30 Cardiac Enzymes 07/12/20 Range/Units 18:30 AST 13 (5-40) units/L Coagulation 07/12/20 Range/Units 18:30 PT 13.7 (12.2-14.9) Sec. INR 1.06 (0.87-1.13) APTT 34.2 (24.2-36.6) Sec. CBC 07/12/20 Range/Units 18:30 WBC 7.3 (4.5-11.0) K/mm3 RBC 3.57 L (3.65-5.03) M/mm3 Hgb 11.6 (10.1-14.3) gm/dl Hct 35.3 (30.3-42.9) % Plt Count 238 (140-440) K/mm3 Lymph # (Auto) 0.8 L (1.2-5.4) K/mm3 [place] # (Auto) 0.5 (0.0-0.8) K/mm3 Eos # (Auto) 0.3 (0.0-0.4) K/mm3 Baso # (Auto) 0.0 (0.0-0.1) K/mm3 Comprehensive Metabolic Panel 07/12/20 Range/Units 18:30 Sodium 139 (137-145) mmol/L Potassium 3.8 (3.6-5.0) mmol/L Chloride 104.1 (98-107) mmol/L Carbon Dioxide 30 (22-30) mmol/L BUN 14 (7-17) mg/dL Creatinine 0.5 L (0.6-1.2) mg/dL Glucose 81 (65-100) mg/dL Calcium 8.9 (8.4-10.2) mg/dL AST 13 (5-40) units/L ALT 17 (7-56) units/L Alkaline Phosphatase 93 (35-129) units/L Total Protein 7.1 (6.3-8.2) g/dL Albumin 3.8 L (3.9-5) g/dL EKG interpretations - Telemetry EKG Rhythm: Sinus Rhythm Assessment and Plan 34-year-old female PMH Hypertension Diabetes Asthma Seizure disorder Echocardiogram 05/04: EF 55 to 60%, negative evidence of intracardiac shunt Bilateral carotid Dopplers 06/04: No hemodynamically significant stenosis Pleuritic chest pain Hematemesis/Hemoccult positive Stable hemoglobin Recommend D-dimer Recommend myocardial perfusion scan in a.m.
--- NOTE | 2020-07-13 17:58 | Event Note ---
Date: 07/13/20 full GI consult dictated - EGD +/- colonoscopy when cleared by cardiology
[2020-07-13] MEDS ORDERED: PANTOPRAZOLE 40 MG INJ IV SCH (22:00)
[2020-07-13 23:38] VITALS: BP 127/54
--- NOTE | 2020-07-14 02:34 | Consultation ---
GASTROENTEROLOGY CONSULT NOTE REFERRING PHYSICIAN: Yassine Antonio M.D. INDICATION: Hematemesis. HISTORY OF PRESENT ILLNESS: The patient is a 34-year-old female with history of diabetes and seizure disorder as well as asthma, presents for epigastric pain and chest pain. The patient reports she started having epigastric and chest pain with a scale of 10/10 severity. She reports she started having coffee-ground emesis. She also reports recent rectal bleeding with bright red and dark stools. She denies any weight loss. The patient subsequently came to the Emergency Room, was noted to be heme positive, admitted and GI consulted. She denies any history of GI bleed in the past. No other specific complaints. PAST MEDICAL HISTORY: Diabetes, hypertension, hypothyroidism, seizure disorder. PAST SURGICAL HISTORY: Status post appendectomy. Status post cholecystectomy. MEDICATIONS: Reviewed and updated in chart. ALLERGIES: AMOXICILLIN, ASPIRIN, BACTRIM, TRAMADOL. SOCIAL HISTORY: Positive alcohol. Nonsmoker. FAMILY HISTORY: Negative for colon cancer, IBD, or liver disease. REVIEW OF SYSTEMS: GENERAL: Reports some weakness. HEENT: No visual complaints or tinnitus. PULMONARY: No shortness of breath. No cough. No chest pain. GASTROINTESTINAL: Reports hematemesis. PHYSICAL EXAMINATION: VITAL SIGNS: Temperature of 98.2, pulse 82, respirations 18, blood pressure 121/90. GENERAL: Fairly nourished female, in no acute distress. HEENT: Pupils equal, round and reactive. PULMONARY: Clear to auscultation bilaterally. CARDIOVASCULAR: Regular rate and rhythm. Normal S1, S2. ABDOMEN: Positive bowel sounds, soft. SKIN: No obvious rashes. LABORATORY DATA: Pertinent for white count of 7.3, hemoglobin and hematocrit of 11.6 and 35.3, platelet count of 234. Chem-7 within normal limits. LFTs within normal limits. CT scan of the abdomen and pelvis with contrast performed on 07/12 showed no acute process. ASSESSMENT: A 34-year-old female with past medical history noted above, now presents with epigastric chest pain with hematemesis. The patient with a stable, though slightly decreased H and H. Cardiology has seen the patient and ordered workup related to reported chest pain. Nausea, vomiting, hematemesis may be related to Lindsay-Devlin tear, but we want to rule out GI pathology. PLAN: 1. Follow hematocrit and transfuse as needed. 2. We will await completion of Cardiology evaluation and workup. 3. PPI IV b.i.d. 4. Okay to restart p.o. from GI standpoint. 5. When cleared by Cardiology, we will proceed with EGD and possible colonoscopy. JOB# [id number] CAB/NTS MTDD
--- NOTE | 2020-07-15 16:31 | Gastroenterology Progress Note ---
Assessment and Plan GI: pot defers evaluation at this time - ok to dc - will sign off Subjective Date of service: 07/14/20 Interval history: - pt to go home today, denies gi complaints Objective - Constitutional Vitals: Temp Pulse Resp BP Pulse Ox 97.6 F 65 18 127/54 100 07/13/20 23:37 07/13/20 23:37 07/13/20 23:37 07/13/20 23:37 07/13/20 23:37 General appearance: no acute distress - EENT Eyes: PERRL - Respiratory Respiratory: bilateral: CTA - Cardiovascular Rhythm: regular Heart Sounds: Present: S1 & S2 - Gastrointestinal General gastrointestinal: Present: soft, non-tender, non-distended - Labs CBC & Chem 7: 07/12/20 18:30 07/12/20 18:30
== END 2020-07-14 00:17 | disposition left against medical advice (07) ==
LOC: ED 17:42 → 4A 23:19
PROVIDERS: ADMIT Internal Medicine Geriatric Medicine; ATTEND Hospitalist
DX: R07.89 Other chest pain (principal); K92.0 Hematemesis; K92.1 Melena; R10.13 Epigastric pain; I10 Essential (primary) hypertension; E11.9 Type 2 diabetes mellitus without complications; E03.9 Hypothyroidism, unspecified; D64.9 Anemia, unspecified; J45.909 Unspecified asthma, uncomplicated; R79.89 Other specified abnormal findings of blood chemistry; R56.9 Unspecified convulsions; Z90.49 Acquired absence of other specified parts of digestive tract; Z98.891 History of uterine scar from previous surgery; Z79.82 Long term (current) use of aspirin; Z79.4 Long term (current) use of insulin; Z98.890 Other specified postprocedural states
CPT/HCPCS: 36415; 71046; 74177; 80053; 81001; 82962; 83690; 84484; 84703; 85025; 85379; 85610; 85730; 93005; 96361; 96374; 96375; 96376; 99291; C9113; G0378; J1170; J2270; J2405; J7030; Q9967

== ENCOUNTER 2020-12-25 00:27 | Emergency (ER) | payer MEDICARE ==
[2020-12-25 01:31] VITALS: BP 129/84
[2020-12-25 02:43] LABS: Basophils % (Auto) 0.3 % (0.0-1.8); Eosinophils # (Auto) 0.2 K/mm3 (0.0-0.4); Eosinophils % (Auto) 2.5 % (0.0-4.3); Hematocrit 33.8 % (30.3-42.9); Hemoglobin 10.9 gm/dl (10.1-14.3); Lymphocytes # (Auto) 1.3 K/mm3 (1.2-5.4); Lymphocytes % (Auto) 18.3 % (13.4-35.0); Mean Corpuscular HGB Conc 32 % (30-34); Mean Corpuscular Volume 87 fl (79-97); Monocytes # (Auto) 0.6 K/mm3 (0.0-0.8); Monocytes % (Auto) 8.3 % (0.0-7.3); Platelet Count 281 K/mm3 (140-440); Red Blood Count 3.87 M/mm3 (3.65-5.03); Red Cell Distribution Width 17.1 % (13.2-15.2)
[2020-12-25 02:53] LABS: Alanine Aminotransferase 292 units/L (7-56); Albumin 4.5 g/dL (3.9-5); Blood Urea Nitrogen 19 mg/dL (7-17); Calcium 9.6 mg/dL (8.4-10.2); Hemolysis Index 1
[2020-12-25 02:55] LABS: BUN/Creatinine Ratio 38
== END 2020-12-25 12:20 | disposition left against medical advice (07) ==
LOC: ED 00:27
DX: M25.569 Pain in unspecified knee (principal); Z53.21 Procedure and treatment not carried out due to patient leaving prior to being seen by health care provider
CPT/HCPCS: 36415; 80053; 85025

== ENCOUNTER 2021-02-26 23:07 | Emergency (ER) | payer MEDICARE ==
[2021-02-26 23:38] VITALS: BP 135/77
--- NOTE | 2021-02-26 23:51 | Event Note ---
ED Screening Note Date of service: 02/26/21 Time: 23:47 ED Screening Note: This is a 34-year-old female with hx of hypertension, diabetes, seizure disorder, and asthma who presents for bilat LE and Left Arm numbness with genderalize malaise x 4 hours, pt denies fever or chills, states chest pain is noted as 3/10 , pt denies exacerbating or relieving factors. Pt states she was admited for similar symptoms in April 2020 for same This initial assessment/diagnostic orders/clinical plan/treatment(s) is/are subject to change based on patients health status, clinical progression and re- assessment by fellow clinical providers in the ED. Further treatment and workup at subsequent clinical providers discretion. Patient/guardian urged not to elope from the ED as their condition may be serious if not clinically assessed and managed. Initial orders include: EKG, CMP, CBC, HCG, CXR, UA, HCG
[2021-02-27 00:59] LABS: Basophils % (Auto) 0.1 % (0.0-1.8); Eosinophils # (Auto) 0.2 K/mm3 (0.0-0.4); Eosinophils % (Auto) 2.1 % (0.0-4.3); Hematocrit 30.3 % (30.3-42.9); Hemoglobin 10.2 gm/dl (10.1-14.3); Lymphocytes # (Auto) 1.3 K/mm3 (1.2-5.4); Lymphocytes % (Auto) 16.7 % (13.4-35.0); Mean Corpuscular HGB Conc 34 % (30-34); Mean Corpuscular Volume 83 fl (79-97); Monocytes # (Auto) 0.4 K/mm3 (0.0-0.8); Monocytes % (Auto) 5.6 % (0.0-7.3); Platelet Count 278 K/mm3 (140-440); Red Blood Count 3.65 M/mm3 (3.65-5.03); Red Cell Distribution Width 17.8 % (13.2-15.2)
[2021-02-27 01:19] LABS: Alanine Aminotransferase 18 units/L (7-56); Albumin 4.4 g/dL (3.9-5); Blood Urea Nitrogen 11 mg/dL (7-17); Calcium 9.3 mg/dL (8.4-10.2); Hemolysis Index 0
[2021-02-27 01:20] LABS: BUN/Creatinine Ratio 18
--- NOTE | 2021-02-27 05:58 | Emergency Department Report ---
ED General Adult HPI - General Chief complaint: Chest Pain Stated complaint: CHEST PAIN/NUMBNESS & TINGLING IN LEGS, BACK, FACE Time Seen by Provider: 02/27/21 05:58 Source: patient Mode of arrival: Ambulatory Limitations: No Limitations - History of Present Illness Initial comments: This is a 34-year-old female with hx of hypertension, diabetes, seizure disorder, and asthma who presents for bilat LE and Left Arm numbness with genderalize malaise x 4 hours, pt denies fever or chills, states chest pain is noted as 3/10 , pt denies exacerbating or relieving factors. Pt states she was admited for similar symptoms in April 2020 for same - Related Data Home Medications Medication Instructions Recorded Confirmed Last Taken AtorvaSTATin [Lipitor] 20 mg PO QHS 05/08/20 07/13/20 05/07/20 Cholecalciferol (Vitamin D3) 5,000 unit PO DAILY 05/08/20 07/13/20 05/08/20 [Vitamin D3] Iron [Iron 18 MG TAB] 18 mg PO QDAY 05/08/20 07/13/20 05/08/20 Levothyroxine Sodium [Synthroid] 175 mcg PO QAM 05/08/20 07/13/20 05/07/20 hydroCHLOROthiazide 50 mg PO DAILY 05/08/20 07/13/20 05/08/20 [Hydrochlorothiazide] Previous Rx's Medication Instructions Recorded Last Taken Type Insulin Glargine [Lantus VIAL] 5 units SUB-Q QHS #1 pen 06/06/19 05/07/20 Rx metFORMIN [Glucophage] 500 mg PO BIDDIAB tablet 06/06/19 05/08/20 Rx AtorvaSTATin [Lipitor] 40 mg PO QHS #30 tablet 05/10/20 Unknown Rx Clopidogrel [Plavix] 75 mg PO QDAY #30 tablet 05/10/20 Unknown Rx levETIRAcetam [Keppra TAB] 1,000 mg PO BID #60 tablet 05/10/20 Unknown Rx Allergies Allergy/AdvReac Type Severity Reaction Status Date / Time amoxicillin Allergy Unknown Verified 06/01/19 15:04 aspirin Allergy Hives Verified 06/04/19 23:20 carrot Allergy Hives Verified 07/13/20 10:06 coconut Allergy Hives Verified 07/13/20 10:06 sulfamethoxazole Allergy Unknown Verified 06/01/19 15:04 [From Bactrim] tramadol Allergy Unknown Verified 06/01/19 15:04 trimethoprim [From Bactrim] Allergy Unknown Verified 06/01/19 15:04 oatmeal Allergy Hives Uncoded 07/13/20 10:06 ED Review of Systems ROS: Stated complaint: CHEST PAIN/NUMBNESS & TINGLING IN LEGS, BACK, FACE Other details as noted in HPI Constitutional: malaise. denies: chills, fever Eyes: denies: eye pain, eye discharge, vision change ENT: denies: ear pain, throat pain Respiratory: cough. denies: shortness of breath, wheezing Cardiovascular: chest pain. denies: palpitations Endocrine: no symptoms reported Gastrointestinal: as per HPI. denies: abdominal pain, nausea, vomiting Genitourinary: denies: urgency, dysuria, discharge Musculoskeletal: back pain, myalgia. denies: joint swelling, arthralgia Skin: denies: rash, lesions Neurological: as per HPI. denies: vertigo Psychiatric: as per HPI Hematological/Lymphatic: denies: easy bleeding, easy bruising ED Past Medical Hx - Past Medical History Previous Medical History?: Yes Hx Hypertension: Yes Hx Congestive Heart Failure: No Hx Diabetes: Yes Hx Seizures: Yes Hx Asthma: Yes Hx COPD: No Additional medical history: hypothyroid,anemia. elevated liver enzymes - Surgical History Past Surgical History?: Yes Hx Cholecystectomy: Yes Hx Appendectomy: Yes Additional Surgical History: 3 c-sections, 1 breast biopsy, 1 liver biposy - Social History Smoking Status: Never Smoker Substance Use Type: None - Medications Home Medications: Home Medications Medication Instructions Recorded Confirmed Last Taken Type Insulin Glargine [Lantus VIAL] 5 units SUB-Q QHS #1 pen 06/06/19 07/13/20 Rx metFORMIN [Glucophage] 500 mg PO BIDDIAB tablet 06/06/19 07/13/20 05/08/20 Rx AtorvaSTATin [Lipitor] 20 mg PO QHS 05/08/20 07/13/20 05/07/20 History Cholecalciferol (Vitamin D3) 5,000 unit PO DAILY 05/08/20 07/13/20 05/08/20 History [Vitamin D3] Iron [Iron 18 MG TAB] 18 mg PO QDAY 1207/13/20 05/08/20 History Levothyroxine Sodium [Synthroid] 175 mcg PO QAM 05/08/20 07/13/20 05/07/20 History hydroCHLOROthiazide 50 mg PO DAILY 05/08/20 07/13/20 05/08/20 History [Hydrochlorothiazide] AtorvaSTATin [Lipitor] 40 mg PO QHS #30 tablet 05/10/20 07/13/20 Unknown Rx Clopidogrel [Plavix] 75 mg PO QDAY #30 tablet 05/10/20 07/13/20 Unknown Rx levETIRAcetam [Keppra TAB] 1,000 mg PO BID #60 tablet 05/10/20 07/13/20 Unknown Rx ED Physical Exam - General Limitations: No Limitations General appearance: alert, in no apparent distress - Head Head exam: Present: atraumatic, normocephalic - Eye Eye exam: Present: PERRL, EOMI Pupils: Present: normal accommodation - ENT ENT exam: Present: normal exam - Neck Neck exam: Present: normal inspection, full ROM. Absent: tenderness - Respiratory Respiratory exam: Present: normal lung sounds bilaterally. Absent: respiratory distress, wheezes, stridor, chest wall tenderness - Cardiovascular Cardiovascular Exam: Present: regular rate, normal rhythm, normal heart sounds. Absent: systolic murmur, diastolic murmur, rubs, gallop - GI/Abdominal GI/Abdominal exam: Present: soft, normal bowel sounds. Absent: distended, tenderness - Rectal Rectal exam: Present: deferred - Extremities Exam Extremities exam: Present: normal inspection, full ROM - Back Exam Back exam: Present: normal inspection, full ROM. Absent: CVA tenderness (R), CVA tenderness (L) - Neurological Exam Neurological exam: Present: alert, oriented X3, CN II-XII intact, normal gait, reflexes normal. Absent: motor sensory deficit - Expanded Neurological Exam Expanded Patient oriented to: Present: person, place, time Speech: Present: fluid speech Cranial nerves: EOM's Intact: Normal, Gag Reflex: Normal, Tongue Deviation: Normal, Nystagmus: Normal Motor strength exam: RUE: 5, LUE: 5, RLE: 5, LLE: 5 DTR: knee (R): 1+, knee (L): 1+ Best Eye Response ([place]): (4) open spontaneously Best Motor Response ([place]): (6) obeys commands Best Verbal Response ([place]): (5) oriented [place] Total: 15 - Psychiatric Psychiatric exam: Present: normal affect, normal mood - Skin Skin exam: Present: warm, dry, intact, normal color. Absent: rash ED Course Vital Signs 02/26/21 23:37 Temperature 98.0 F Pulse Rate 91 H Respiratory 16 Rate Blood Pressure 135/77 O2 Sat by Pulse 100 Oximetry ED Medical Decision Making - Lab Data Result diagrams: 02/27/21 00:20 02/27/21 00:20 Labs 02/27/21 02/27/21 00:20 00:20 WBC 7.9 RBC 3.65 Hgb 10.2 Hct 30.3 MCV 83 MCH 28 MCHC 34 RDW 17.8 H Plt Count 278 Lymph % (Auto) 16.7 Gregg % (Auto) 5.6 Eos % (Auto) 2.1 Baso % (Auto) 0.1 Lymph # (Auto) 1.3 Gregg # (Auto) 0.4 Eos # (Auto) 0.2 Baso # (Auto) 0.0 Seg Neutrophils % 75.5 H Seg Neutrophils # 6.0 Sodium 138 Potassium 3.7 Chloride 101.1 Carbon Dioxide 25 Anion Gap 16 BUN 11 Creatinine 0.6 Estimated GFR > 60 BUN/Creatinine Ratio 18 Glucose 89 Calcium 9.3 Total Bilirubin 0.20 AST 13 ALT 18 Alkaline Phosphatase 101 Troponin T < 0.010 Total Protein 8.0 Albumin 4.4 Albumin/Globulin Ratio 1.2 - EKG Data EKG shows normal: sinus rhythm, axis, intervals, QRS complexes, ST-T waves Rate: normal - EKG Data Interpretation: normal EKG (NSR no ST Elevated [place] ) - Radiology Data Radiology results: pending - Medical Decision Making Patient now advises that she can no longer wait for labs or evaluation. However patient was admitted July 2020 similar complaint diagnosed with moderate GI bleed treated with PPI. Patient is currently alert oriented x3 she is amatory with steady gait uses Rollator as prescribed. She denies chest pain there is no shortness of breath vital signs are stable patient advised to follow-up with primary care doctor today. Disposition undetermined patient leaving AGAINST MEDICAL ADVICE at this time. Critical care attestation.: If time is entered above; I have spent that time in minutes in the direct care of this critically ill patient, excluding procedure time. ED Disposition Clinical Impression: Body aches Chest pain Qualifiers: Chest pain type: unspecified Qualified Code(s): R07.9 - Chest pain, unspecified Disposition: 07 LEFT AGAINST MEDICAL ADVICE Is pt being admited?: No Does the pt Need Aspirin: No Condition: Undetermined Instructions: Nonspecific Chest Pain, Adult Additional Instructions: Follow-up with your doctor today, return to emergency department should symptoms worsen. Referrals: SCOTT NGO MD [Staff Physician] - [facility] Time of Disposition: 06:05
[2021-02-27 06:16] LABS: Bacteria,Urine 2+ /HPF (Negative); Bilirubin,Urine NEG (Negative); Blood,Urine SM (Negative); Color,Urine Yellow (Yellow); Mucus,Urine 2+ /HPF; Protein,Urine <15 mg/dL mg/dL (Negative); Urobilinogen,Urine < 2.0 mg/dL (<2.0)
[2021-02-27 06:27] LABS: HCG Qualitative,Urine Negative (Negative)
--- NOTE | 2021-03-04 14:42 | Electrocardiograph Report ---
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
== END 2021-02-27 06:00 | disposition left against medical advice (07) ==
LOC: ED 23:07
DX: M79.10 Myalgia, unspecified site (principal); R07.9 Chest pain, unspecified; J45.909 Unspecified asthma, uncomplicated; Z90.89 Acquired absence of other organs; Z90.49 Acquired absence of other specified parts of digestive tract; I10 Essential (primary) hypertension; E11.8 Type 2 diabetes mellitus with unspecified complications
CPT/HCPCS: 36415; 80053; 81001; 81025; 84484; 85025; 87086; 93005; 99283

== ENCOUNTER 2021-03-01 04:35 | Emergency (ER) | payer MEDICARE ==
[2021-03-01 04:52] VITALS: BP 120/65
[2021-03-01] MEDS ORDERED: HYDROcodone/ACETAMINOPHEN 5-325 MG TAB PO ONE (05:27)
[2021-03-01] MEDS ORDERED: ONDANSETRON 4 MG ODT TAB PO ONE (05:27)
--- NOTE | 2021-03-01 05:30 | Event Note ---
ED Screening Note Date of service: 03/01/21 Time: 05:28 ED Screening Note: 35-year-old female patient with history of diabetes, asthma, seizures, stroke, and hypertension presents to the emergency department via EMS with complaints of traumatic low back pain starting tonight. Patient states she tripped while walking downstairs and fell down approximately 8-10 steps, landing on her lower back. There was no resulting head injury or loss of consciousness. Patient is able to recall the events surrounding the fall in entirety. Patient has a history of lower extremity weakness and uses a walker at baseline. Frequently uses steroids for her asthma. General: Awake, appropriately interactive. Sitting in wheelchair. Neck: Supple. Full range of motion intact. Cardiovascular: Normal peripheral perfusion. Pulmonary: No respiratory distress. Patient is speaking normally without use of accessory muscles. Skin: No apparent rashes or lesions. Neurological: No facial asymmetry. Speech is clear. Follows commands. Patient is alert and oriented. Musculoskeletal: Diffuse midline lumbar tenderness. No step-offs. No saddle anesthesia. Psych: Cooperative. Appropriate mood and affect. I have greeted and performed a focused rapid initial assessment of this patient. A comprehensive ED assessment and evaluation of the patient, analysis of all test results, and completion of the medical decision-making process will be conducted by additional ED providers. This initial assessment/diagnostic orders/clinical plan/treatment(s) is/are subject to change based on patients health status, clinical progression and re-assessment. Further treatment and workup at subsequent clinical provider's discretion. Patient/guardian urged not to elope from the ED as their condition may be serious if not clinically assessed and managed. 18:40: Patient eloped from the emergency department prior to completion of diagnostic evaluation.
== END 2021-03-01 06:36 | disposition left against medical advice (07) ==
LOC: ED 04:35
DX: M54.50 Low back pain, unspecified (principal); Z53.21 Procedure and treatment not carried out due to patient leaving prior to being seen by health care provider
CPT/HCPCS: Q0162

== ENCOUNTER 2021-05-26 03:49 | Emergency (ER) | payer MEDICARE ==
--- NOTE | 2021-05-26 05:35 | XRay Report ---
CHEST 1 VIEW INDICATION: Chest Pain. COMPARISON: 07/12/2011 FINDINGS: SUPPORT DEVICES: None. HEART: Within normal limits. LUNGS/PLEURA: No acute air space or interstitial disease. ADDITIONAL FINDINGS: None. IMPRESSION: 1. No acute findings. Signer Name: Gavino De La Vega MD Signed: 05/26/2021 5:31 AM Workstation Name: [id number]
[2021-05-26 06:07] LABS: Basophils % (Auto) 0.5 % (0.0-1.8); Eosinophils # (Auto) 0.1 K/mm3 (0.0-0.4); Eosinophils % (Auto) 1.5 % (0.0-4.3); Hematocrit 32.4 % (30.3-42.9); Lymphocytes # (Auto) 1.1 K/mm3 (1.2-5.4); Lymphocytes % (Auto) 17.3 % (13.4-35.0); Mean Corpuscular HGB Conc 31 % (30-34); Mean Corpuscular Volume 83 fl (79-97); Monocytes # (Auto) 0.5 K/mm3 (0.0-0.8); Monocytes % (Auto) 8.7 % (0.0-7.3); Platelet Count 291 K/mm3 (140-440); Red Blood Count 3.91 M/mm3 (3.65-5.03); Red Cell Distribution Width 19.2 % (13.2-15.2)
[2021-05-26 06:29] LABS: Alanine Aminotransferase 39 units/L (7-56); Albumin 4.3 g/dL (3.9-5); Blood Urea Nitrogen 15 mg/dL (7-17); Calcium 9.2 mg/dL (8.4-10.2); Hemolysis Index 1
[2021-05-26 06:30] LABS: BUN/Creatinine Ratio 30
--- NOTE | 2021-05-26 10:06 | Electrocardiograph Report ---
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
[2021-05-26] MEDS ORDERED: HYDROcodone/ACETAMINOPHEN 5-325 MG TAB PO ONE (10:33)
--- NOTE | 2021-05-26 11:07 | XRay Report ---
LEFT ELBOW 3 VIEWS INDICATION: left elbow pain. COMPARISON: None. IMPRESSION: No acute osseous or soft tissue abnormality. No significant DJD. Signer Name: Apollo Sheffield Jr, MD Signed: 05/26/2021 11:03 AM Workstation Name: [id number]
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
--- NOTE | 2021-05-26 16:11 | Nuclear Medicine Report ---
NUCLEAR MEDICINE PERFUSION LUNG SCAN INDICATION / CLINICAL INFORMATION: SOB, CP, pleuritic pain, hx of PE. TECHNIQUE: 5.1 mCi of Tc-99m MAA were given by IV. COMPARISON: Chest radiograph dated 05/26/2021. FINDINGS: PERFUSION: No significant perfusion defects. ADDITIONAL FINDINGS: None. IMPRESSION: 1. Low probability for pulmonary embolism. Signer Name: Garth Alfaro MD Signed: 05/26/2021 4:07 PM Workstation Name: [id number]
[2021-05-26 17:11] VITALS: BP 127/69
--- NOTE | 2021-05-27 10:09 | Electrocardiograph Report ---
[facility] Test Date: 2021-05-26 Test Time: 13:51:02 Pat Name: JAIME MELLO Department: Room: Gender: F Filter Tip Inspector: LILIANA : 1985 Requested By: GUILLERMO LAMBERT Order Number: [id number] Reading MD: Henry Warner Measurements Intervals [place] Rate: 77 P: 44 [place]: 149 QRS: 10 QRSD: 96 T: 0 QT: 384 QTc: 435 Interpretive Statements Sinus rhythm Compared to ECG 05/26/2021 04:48:01 No significant changes Electronically Signed On 05-27-2021 10:09:06 EST by Henry Warner
== END 2021-05-26 17:22 | disposition home or self-care (01) ==
LOC: ED 03:49
DX: R06.02 Shortness of breath (principal); M25.522 Pain in left elbow; R07.9 Chest pain, unspecified; Z88.0 Allergy status to penicillin; Z88.6 Allergy status to analgesic agent; Z91.018 Allergy to other foods; Z88.2 Allergy status to sulfonamides; Z88.5 Allergy status to narcotic agent; I10 Essential (primary) hypertension; E11.9 Type 2 diabetes mellitus without complications; J45.909 Unspecified asthma, uncomplicated; Z90.49 Acquired absence of other specified parts of digestive tract; Z90.89 Acquired absence of other organs
CPT/HCPCS: 36415; 71046; 73080; 78580; 80053; 83690; 84484; 84703; 85025; 93005; 99285; A9540

== ENCOUNTER 2021-09-16 01:10 | Emergency (ER) | payer MEDICARE ==
[2021-09-16] MEDS ORDERED: predniSONE 20 MG TAB PO ONE (03:22)
[2021-09-16] MEDS ORDERED: ACETAMINOPHEN 500 MG TAB PO ONE (03:22)
--- NOTE | 2021-09-16 05:05 | Emergency Department Report ---
ED Extremity Problem HPI - General Chief complaint: Extremity Injury, Lower Stated complaint: LOWER BODY WEAKNESS Source: EMS Mode of arrival: Stretcher Limitations: No Limitations - History of Present Illness Initial comments: Patient is a 36-year-old -[place] female with a history of hypertension, omr-cazhigo-oldzxioxe diabetes, asthma, chronic seizures and hypothyroidism who presents to the ED with complaint of acute onset persistent nontraumatic right knee and right ankle pain that radiates proximally on right lower leg for the last 2 days. Patient states that the pain has worsened especially in the last 24 hours such that she is unable to bear weight on the right leg because of worsening pain. Patient denies fever, chills, traumatic injury, heavy lifting, fall, nausea and vomiting, numbness and tingling or weakness of lower extremities bilaterally, chest pain, shortness of breath, back pain or hip pain. MD Complaint: extremity pain (Right knee, right lower and right ankle pain), joint paint (right knee and ankle pain) -: Sudden, days(s) (2) Location: right, lower extremity (right lower leg), knee (right knee and ankle pain) History of Same: No -: Yes arthralgia, No fever, No associated chest pain Radiation: distal Severity scale (0 -10): 8 Quality: aching, sharp Consistency: constant Improves with: nothing Worsens with: weight bearing, walking, exertion, palpation Associated Symptoms: denies other symptoms, arthralgias (painful right ankle and knee). denies: chest pain, shortness of breath, fever, myalgias, rash - Related Data Home Medications Medication Instructions Recorded Confirmed Last Taken Cholecalciferol (Vitamin D3) 5,000 unit PO DAILY 05/08/20 06/23/21 05/08/20 [Vitamin D3] Iron [Iron 18 MG TAB] 18 mg PO QDAY 05/08/20 06/23/21 05/08/20 Levothyroxine Sodium [Synthroid] 175 mcg PO QAM 05/08/20 06/23/21 05/07/20 hydroCHLOROthiazide 50 mg PO DAILY 05/08/20 06/23/21 05/08/20 [Hydrochlorothiazide] Previous Rx's Medication Instructions Recorded Last Taken Type Insulin Glargine [Lantus VIAL] 5 units SUB-Q QHS #1 pen 06/06/19 05/07/20 Rx metFORMIN [Glucophage] 500 mg PO BIDDIAB tablet 06/06/19 05/08/20 Rx AtorvaSTATin [Lipitor] 40 mg PO QHS #30 tablet 05/10/20 Unknown Rx Clopidogrel [Plavix] 75 mg PO QDAY #30 tablet 05/10/20 Unknown Rx levETIRAcetam [Keppra TAB] 1,000 mg PO BID #60 tablet 05/10/20 Unknown Rx Acetaminophen/Codeine [Tylenol 1 tab PO Q6H PRN #12 tab 09/16/21 Unknown Rx /Codeine # 3 tab] Gabapentin 300 mg PO Q8HR 30 Days #90 capsule 09/16/21 Unknown Rx predniSONE [Deltasone] 60 mg PO QDAY #15 tab 09/16/21 Unknown Rx Allergies Allergy/AdvReac Type Severity Reaction Status Date / Time Iodinated Contrast Media Allergy Severe Swelling Verified 06/23/21 04:06 amoxicillin Allergy Unknown Verified 03/01/21 04:49 aspirin Allergy Hives Verified 03/01/21 04:49 carrot Allergy Hives Verified 03/01/21 04:49 coconut Allergy Hives Verified 03/01/21 04:49 sulfamethoxazole Allergy Unknown Verified 03/01/21 04:49 [From Bactrim] tramadol Allergy Unknown Verified 03/01/21 04:49 trimethoprim [From Bactrim] Allergy Unknown Verified 03/01/21 04:49 oatmeal Allergy Hives Uncoded 07/13/20 10:06 ED Review of Systems ROS: Stated complaint: LOWER BODY WEAKNESS Other details as noted in HPI Constitutional: denies: chills, fever Eyes: denies: eye pain, eye discharge, vision change ENT: denies: ear pain, throat pain Respiratory: denies: cough, shortness of breath, wheezing Cardiovascular: denies: chest pain, palpitations Endocrine: no symptoms reported Gastrointestinal: denies: abdominal pain, nausea, diarrhea Genitourinary: denies: urgency, dysuria, discharge Musculoskeletal: arthralgia (Right ankle and knee pain), other (Right lower leg pain). denies: back pain, joint swelling Skin: denies: rash, lesions Neurological: denies: headache, weakness, paresthesias Psychiatric: denies: anxiety, depression Hematological/Lymphatic: denies: easy bleeding, easy bruising ED Past Medical Hx - Past Medical History Previous Medical History?: Yes Hx Hypertension: Yes Hx Diabetes: Yes Hx Seizures: Yes Hx Asthma: Yes Additional medical history: hypothyroid,anemia. elevated liver enzymes - Surgical History Hx Cholecystectomy: Yes Hx Appendectomy: Yes Additional Surgical History: 3 c-sections, 1 breast biopsy, 1 liver biposy - Social History Smoking Status: Never Smoker Substance Use Type: None - Medications Home Medications: Home Medications Medication Instructions Recorded Confirmed Last Taken Type Insulin Glargine [Lantus VIAL] 5 units SUB-Q QHS #1 pen 06/06/19 06/23/21 1 07/08/19 Rx metFORMIN [Glucophage] 500 mg PO BIDDIAB tablet 06/06/19 06/23/21 05/08/20 Rx Cholecalciferol (Vitamin D3) 5,000 unit PO DAILY 05/08/20 06/23/21 05/08/20 History [Vitamin D3] Iron [Iron 18 MG TAB] 18 mg PO QDAY 05/08/20 06/23/21 05/08/20 History Levothyroxine Sodium [Synthroid] 175 mcg PO QAM 05/08/20 06/23/21 05/07/20 History hydroCHLOROthiazide 50 mg PO DAILY 05/08/20 06/23/21 05/08/20 History [Hydrochlorothiazide] AtorvaSTATin [Lipitor] 40 mg PO QHS #30 tablet 05/10/20 06/23/21 Unknown Rx Clopidogrel [Plavix] 75 mg PO QDAY #30 tablet 05/10/20 06/23/21 Unknown Rx levETIRAcetam [Keppra TAB] 1,000 mg PO BID #60 tablet 05/10/20 06/23/21 Unknown Rx Acetaminophen/Codeine [Tylenol 1 tab PO Q6H PRN #12 tab 09/16/21 Unknown Rx /Codeine # 3 tab] Gabapentin 300 mg PO Q8HR 30 Days #90 capsule 09/16/21 Unknown Rx predniSONE [Deltasone] 60 mg PO QDAY #15 tab 09/16/21 Unknown Rx ED Physical Exam - General Limitations: No Limitations General appearance: alert, in no apparent distress - Head Head exam: Present: atraumatic, normocephalic, normal inspection - Eye Eye exam: Present: normal appearance, PERRL, EOMI Pupils: Present: normal accommodation - ENT ENT exam: Present: normal exam, normal orophraynx, mucous membranes moist, TM's normal bilaterally, normal external ear exam - Neck Neck exam: Present: normal inspection, full ROM. Absent: tenderness - Respiratory Respiratory exam: Present: normal lung sounds bilaterally. Absent: respiratory distress, wheezes, rales, rhonchi, chest wall tenderness, accessory muscle use, decreased breath sounds, prolonged expiratory - Cardiovascular Cardiovascular Exam: Present: regular rate, normal rhythm, normal heart sounds. Absent: systolic murmur, diastolic murmur, rubs, gallop - GI/Abdominal GI/Abdominal exam: Present: soft, normal bowel sounds. Absent: tenderness, guarding, hyperactive bowel sounds, hypoactive bowel sounds, mass, bruit - Extremities Exam Extremities exam: Present: normal inspection, full ROM, tenderness (Palpable right knee, right ankle and right lower leg tenderness), normal capillary refill, calf tenderness (Right calf pain). Absent: pedal edema, joint swelling - Back Exam Back exam: Present: normal inspection, full ROM. Absent: tenderness, CVA tenderness (R), CVA tenderness (L), muscle spasm, paraspinal tenderness, vertebral tenderness - Neurological Exam Neurological exam: Present: alert, oriented X3, CN II-XII intact, normal gait, reflexes normal - Psychiatric Psychiatric exam: Present: normal affect, normal mood - Skin Skin exam: Present: warm, dry, intact, normal color. Absent: rash ED Course Vital Signs 09/16/21 01:30 Temperature 98.1 F Pulse Rate 90 Respiratory 16 Rate Blood Pressure 140/76 O2 Sat by Pulse 97 Oximetry ED Medical Decision Making - Radiology Data Radiology results: report reviewed, image reviewed [address] [address] Vascular Lab Report Signed Patient: JAIME MELLO MR#: [id number] : 1985 Acct:[id number] Age/Sex: 36 / F ADM Date: 09/16/21 Loc: ED Attending Dr: Ordering Physician: HERBIE PAYNE Date of Service: 09/16/21 Procedure(s): VL venous duplex LE RT Accession Number(s): [id number] cc: HERBIE PAYNE DUPLEX DOPPLER LOWER EXTREMITY VEINS, RIGHT INDICATION / CLINICAL INFORMATION: right lower leg pain. TECHNIQUE: Duplex doppler imaging was performed through the veins of the right lower extremity using venous compression and other maneuvers. COMPARISON: None available. FINDINGS: RIGHT COMMON FEMORAL VEIN: Negative. RIGHT FEMORAL VEIN: Negative. RIGHT POPLITEAL VEIN: Negative. RIGHT CALF VEINS: Negative. ADDITIONAL FINDINGS: None. IMPRESSION: 1. No sonographic evidence for DVT in the right lower extremity. Signer Name: Fran Abdul II, MD Signed: 09/16/2021 5:03 AM Workstation Name: [id number] Transcribed By: GABY Dictated By: FRAN ABDUL II, MD Electronically Authenticated By: FRAN ABDUL II, MD Signed Date/Time: 09/16/21502 DD/ 2 TD/TT: - Medical Decision Making This is a 36-year-old -[place] female with a history of hypertension, [id number] diabetes, asthma, chronic seizures and hypothyroidism who presents to the ED with complaint of acute onset persistent nontraumatic right knee and right ankle pain that radiates proximally on right lower leg for the last 2 days. Patient states that the pain has worsened especially in the last 24 hours such that she is unable to bear weight on the right leg because of worsening pain. In the ED, patient is alert and oriented x3 and is not in any distress. Patient was treated for pain in the ED. Right lower leg Doppler ultrasound showed no sonographic evidence of DVT. On reevaluation, patient's pain is well controlled medication. Patient was discharged home on pain m edications and also given crutches to help with ambulation. Patient was advised return to the ED immediately if symptoms get worse. Patient was otherwise advised to follow-up with her primary care physician in 5 to 7 days for reevaluation. - Differential Diagnosis Osteoarthritis; tendinitis; DVT; muscle strain; gout; muscle spasm Critical care attestation.: If time is entered above; I have spent that time in minutes in the direct care of this critically ill patient, excluding procedure time. ED Disposition Clinical Impression: Tendinitis of right knee, Right ankle tendonitis Muscle strain of right lower extremity Qualifiers: Encounter type: initial encounter Qualified Code(s): S86.911A - Strain of unspecified muscle(s) and tendon(s) at lower leg level, right leg, initial encounter Disposition: HOME / SELF CARE / HOMELESS Is pt being admited?: No Does the pt Need Aspirin: No Condition: Stable Instructions: Ankle Sprain, [id number], Knee Sprain, Adult, [id number]-zy-[id number], Muscle Strain, [id number], Tendinitis, [id number], Posterior Tibial Tendinitis [facility] Additional Instructions: The right lower extremity Doppler ultrasound preliminarily showed no sonographic evidence of DVT. Therefore take medication with food, drink plenty of fluids, follow-up with your primary care physician in 7 to 10 days for reevaluation. Return to the ED immediately if symptoms get worse. Prescriptions: predniSONE [Deltasone] 60 mg PO QDAY #15 tab Gabapentin 300 mg PO Q8HR 30 Days #90 capsule Acetaminophen/Codeine [Tylenol /Codeine # 3 tab] 1 tab PO Q6H PRN #12 tab PRN Reason: Pain , Severe (7-10) Referrals: [facility] [Provider Group] - 7-10 days Time of Disposition: 05:05 Print Language: AMERICAN
--- NOTE | 2021-09-16 05:08 | Vascular Lab Report ---
DUPLEX DOPPLER LOWER EXTREMITY VEINS, RIGHT INDICATION / CLINICAL INFORMATION: right lower leg pain. TECHNIQUE: Duplex doppler imaging was performed through the veins of the right lower extremity using venous compression and other maneuvers. COMPARISON: None available. FINDINGS: RIGHT COMMON FEMORAL VEIN: Negative. RIGHT FEMORAL VEIN: Negative. RIGHT POPLITEAL VEIN: Negative. RIGHT CALF VEINS: Negative. ADDITIONAL FINDINGS: None. IMPRESSION: 1. No sonographic evidence for DVT in the right lower extremity. Signer Name: Jorge Abdul II, MD Signed: 09/16/2021 5:03 AM Workstation Name: [id number]
[2021-09-16 05:46] VITALS: BP 139/75
== END 2021-09-16 05:34 | disposition home or self-care (01) ==
LOC: ED 01:10
DX: S86.911A Strain of unspecified muscle(s) and tendon(s) at lower leg level, right leg, initial encounter (principal); M76.51 Patellar tendinitis, right knee; M25.571 Pain in right ankle and joints of right foot; I10 Essential (primary) hypertension; E11.9 Type 2 diabetes mellitus without complications; J45.909 Unspecified asthma, uncomplicated; Z88.0 Allergy status to penicillin; Z88.6 Allergy status to analgesic agent; Z88.3 Allergy status to other anti-infective agents; Z88.5 Allergy status to narcotic agent; Z91.018 Allergy to other foods; X58.XXXA Exposure to other specified factors, initial encounter; Y92.89 Other specified places as the place of occurrence of the external cause; Y93.89 Activity, other specified; Y99.8 Other external cause status
CPT/HCPCS: 99284

== ENCOUNTER 2021-09-30 05:34 | Emergency (ER) | payer MEDICARE | END 2021-09-30 19:00 | disposition left against medical advice (07) | LOC: ED 05:34 | DX: R10.9 Unspecified abdominal pain (principal); Z53.21 Procedure and treatment not carried out due to patient leaving prior to being seen by health care provider ==

== ENCOUNTER 2021-10-21 03:20 | Emergency (ER) | payer MEDICARE ==
[2021-10-21 08:09] LABS: HCG Qualitative,Urine Negative (Negative)
[2021-10-21 08:26] LABS: Bilirubin,Urine NEG (Negative); Blood,Urine NEG (Negative); Color,Urine Yellow (Yellow); Mucus,Urine 2+ /HPF; Protein,Urine <15 mg/dL mg/dL (Negative); Urobilinogen,Urine < 2.0 mg/dL (<2.0)
[2021-10-21 08:28] LABS: RBC,Urine < 1.0 /HPF (0.0-6.0)
[2021-10-21 08:39] LABS: Basophils % (Auto) 0.2 % (0.0-1.8); Eosinophils # (Auto) 0.2 K/mm3 (0.0-0.4); Eosinophils % (Auto) 2.3 % (0.0-4.3); Hematocrit 31.6 % (30.3-42.9); Hemoglobin 10.2 gm/dl (10.1-14.3); Lymphocytes # (Auto) 1.3 K/mm3 (1.2-5.4); Lymphocytes % (Auto) 16.6 % (13.4-35.0); Mean Corpuscular HGB Conc 32 % (30-34); Mean Corpuscular Volume 85 fl (79-97); Monocytes # (Auto) 0.7 K/mm3 (0.0-0.8); Monocytes % (Auto) 9.8 % (0.0-7.3); Platelet Count 277 K/mm3 (140-440); Red Blood Count 3.74 M/mm3 (3.65-5.03); Red Cell Distribution Width 17.8 % (13.2-15.2)
[2021-10-21] MEDS ORDERED: ONDANSETRON 4 MG ODT TAB PO ONE (08:52)
[2021-10-21 09:05] LABS: Alanine Aminotransferase 14 units/L (7-56); Blood Urea Nitrogen 17 mg/dL (7-17); Calcium 8.8 mg/dL (8.4-10.2); Hemolysis Index 5
--- NOTE | 2021-10-21 09:05 | Emergency Department Report ---
ED General Adult HPI - General Chief complaint: Dyspnea/Respdistress Stated complaint: PERNELL PUI?: No Time Seen by Provider: 10/21/21 07:50 Source: patient, EMS Mode of arrival: Ambulatory Limitations: No Limitations - History of Present Illness Initial comments: This is a 36-year-old female who presents to the ED today complaining of vomiting x2 days. Patient states that she had a couple of vomiting episodes in the past 2 days and got worried when she saw a little bit of blood in her vomit. Patient denies any sick contacts recently. Patient denies abdominal pain, fever, chills, diarrhea - Related Data Home Medications Medication Instructions Recorded Confirmed Last Taken Cholecalciferol (Vitamin D3) 5,000 unit PO DAILY 05/08/20 06/23/21 05/08/20 [Vitamin D3] Iron [Iron 18 MG TAB] 18 mg PO QDAY 05/08/20 06/23/21 05/08/20 Levothyroxine Sodium [Synthroid] 175 mcg PO QAM 05/08/20 06/23/21 05/07/20 hydroCHLOROthiazide 50 mg PO DAILY 05/08/20 06/23/21 05/08/20 [Hydrochlorothiazide] Previous Rx's Medication Instructions Recorded Last Taken Type Insulin Glargine [Lantus VIAL] 5 units SUB-Q QHS #1 pen 06/06/19 05/07/20 Rx metFORMIN [Glucophage] 500 mg PO BIDDIAB tablet 06/06/19 05/08/20 Rx AtorvaSTATin [Lipitor] 40 mg PO QHS #30 tablet 05/10/20 Unknown Rx Clopidogrel [Plavix] 75 mg PO QDAY #30 tablet 05/10/20 Unknown Rx levETIRAcetam [Keppra TAB] 1,000 mg PO BID #60 tablet 05/10/20 Unknown Rx Acetaminophen/Codeine [Tylenol 1 tab PO Q6H PRN #12 tab 09/16/21 Unknown Rx /Codeine # 3 tab] Gabapentin 300 mg PO Q8HR 30 Days #90 capsule 09/16/21 Unknown Rx predniSONE [Deltasone] 60 mg PO QDAY #15 tab 09/16/21 Unknown Rx Ondansetron [Zofran ODT TAB] 8 mg PO Q8HR #30 tab.rapdis 10/21/21 Unknown Rx Allergies Allergy/AdvReac Type Severity Reaction Status Date / Time Iodinated Contrast Media Allergy Severe Swelling Verified 06/23/21 04:06 amoxicillin Allergy Unknown Verified 03/01/21 04:49 aspirin Allergy Hives Verified 03/01/21 04:49 carrot Allergy Hives Verified 03/01/21 04:49 coconut Allergy Hives Verified 03/01/21 04:49 sulfamethoxazole Allergy Unknown Verified 03/01/21 04:49 [From Bactrim] tramadol Allergy Unknown Verified 03/01/21 04:49 trimethoprim [From Bactrim] Allergy Unknown Verified 03/01/21 04:49 oatmeal Allergy Hives Uncoded 07/13/20 10:06 ED Review of Systems ROS: Stated complaint: PERNELL Other details as noted in HPI Comment: All other systems reviewed and negative ED Past Medical Hx - Past Medical History Hx Hypertension: Yes Hx Diabetes: Yes Hx Seizures: Yes Hx Asthma: Yes Additional medical history: hypothyroid,anemia. elevated liver enzymes - Surgical History Hx Cholecystectomy: Yes Hx Appendectomy: Yes Additional Surgical History: 3 c-sections, 1 breast biopsy, 1 liver biposy - Social History Smoking Status: Never Smoker Substance Use Type: None - Medications Home Medications: Home Medications Medication Instructions Recorded Confirmed Last Taken Type Insulin Glargine [Lantus VIAL] 5 units SUB-Q QHS #1 pen 06/06/19 06/23/21 05/07/20 Rx metFORMIN [Glucophage] 500 mg PO BIDDIAB tablet 06/06/19 06/23/21 05/08/20 Rx Cholecalciferol (Vitamin D3) 5,000 unit PO DAILY 05/08/20 06/23/21 05/08/20 History [Vitamin D3] Iron [Iron 18 MG TAB] 18 mg PO QDAY 05/08/20 06/23/21 05/08/20 History Levothyroxine Sodium [Synthroid] 175 mcg PO QAM 05/08/20 06/23/21 05/07/20 History hydroCHLOROthiazide 50 mg PO DAILY 05/08/20 06/23/21 05/08/20 History [Hydrochlorothiazide] AtorvaSTATin [Lipitor] 40 mg PO QHS #30 tablet 05/10/20 06/23/21 Unknown Rx Clopidogrel [Plavix] 75 mg PO QDAY #30 tablet 05/10/20 06/23/21 Unknown Rx levETIRAcetam [Keppra TAB] 1,000 mg PO BID #60 tablet 05/10/20 06/23/21 Unknown Rx Acetaminophen/Codeine [Tylenol 1 tab PO Q6H PRN #12 tab 09/16/21 Unknown Rx /Codeine # 3 tab] Gabapentin 300 mg PO Q8HR 30 Days #90 capsule 09/16/21 Unknown Rx predniSONE [Deltasone] 60 mg PO QDAY #15 tab 09/16/21 Unknown Rx Ondansetron [Zofran ODT TAB] 8 mg PO Q8HR #30 tab.rapdis 10/21/21 Unknown Rx ED Physical Exam - General Limitations: No Limitations General appearance: alert, in no apparent distress - Head Head exam: Present: atraumatic - Eye Eye exam: Present: normal appearance, PERRL - ENT ENT exam: Present: mucous membranes moist - Neck Neck exam: Present: normal inspection - Respiratory Respiratory exam: Present: normal lung sounds bilaterally. Absent: respiratory distress, wheezes - Cardiovascular Cardiovascular Exam: Present: regular rate, normal rhythm. Absent: systolic murmur, diastolic murmur, rubs, gallop - GI/Abdominal GI/Abdominal exam: Present: soft, normal bowel sounds. Absent: distended, tenderness, guarding - Extremities Exam Extremities exam: Present: normal inspection, full ROM - Back Exam Back exam: Present: normal inspection, full ROM. Absent: CVA tenderness (R), CVA tenderness (L) - Neurological Exam Neurological exam: Present: alert, oriented X3, CN II-XII intact - Psychiatric Psychiatric exam: Present: normal affect, normal mood - Skin Skin exam: Present: warm, dry, intact, normal color. Absent: rash ED Course Vital Signs 10/21/21 10/21/21 03:24 10:39 Temperature 98.6 F 98.6 F Pulse Rate 90 78 Respiratory 16 18 Rate Blood Pressure 150/70 128/80 [Right] O2 Sat by Pulse 100 99 Oximetry ED Medical Decision Making - Lab Data Result diagrams: 10/21/21 08:03 10/21/21 08:03 - Medical Decision Making 36-year-old female in no acute distress who presented with nausea and vomiting most likely to the viral syndrome. Patient had no vomiting episode throughout ED stay. All labs are within normal limits. Discussed findings with the patient. Discussed with patient to follow-up with transportation dispatcher if symptoms persist. Patient speaking in clear sentences was in no respiratory distress vital signs normalized. At this time patient understands instructions to take medication as prescribed increase hydration and brat diet instructions given. Critical care attestation.: If time is entered above; I have spent that time in minutes in the direct care of this critically ill patient, excluding procedure time. ED Disposition Clinical Impression: Nausea & vomiting Disposition: 01 HOME / SELF CARE / HOMELESS Is pt being admited?: No Does the pt Need Aspirin: No Condition: Stable Instructions: Rotavirus Infection, Adult, Nausea and Vomiting, Adult Additional Instructions: Make sure to follow up with the primary care physician as discussed. Take all your medications as you've been prescribed. If you have any worsening symptoms or develop new symptoms please return to ED immediately. Prescriptions: Ondansetron [Zofran ODT TAB] 8 mg PO Q8HR #30 tab.rapdis Referrals: LAM STAFFORD MD [Primary Care Provider] - 3-5 Days [facility] [Provider Group] - 3-5 Days Forms: Work/School Release Form(ED) Time of Disposition: 10:29
[2021-10-21 09:09] LABS: BUN/Creatinine Ratio 28
[2021-10-21 10:40] VITALS: BP 128/80
== END 2021-10-21 10:41 | disposition home or self-care (01) ==
LOC: ED 03:20
DX: R11.2 Nausea with vomiting, unspecified (principal); Z88.0 Allergy status to penicillin; Z91.018 Allergy to other foods; Z91.041 Radiographic dye allergy status; I10 Essential (primary) hypertension; E11.9 Type 2 diabetes mellitus without complications; J45.909 Unspecified asthma, uncomplicated
CPT/HCPCS: 36415; 80053; 81001; 81025; 85025; 99284; J3490; Q0162

== ENCOUNTER 2021-11-14 02:05 | Emergency (ER) | payer MEDICARE | END 2021-11-14 18:00 | disposition left against medical advice (07) | LOC: ED 02:05 | DX: H57.11 Ocular pain, right eye (principal); Z53.21 Procedure and treatment not carried out due to patient leaving prior to being seen by health care provider ==